=== PATIENT | female | born 1990 | race Caucasian/White ===

== ENCOUNTER → 2017-05-19 | Outpatient (CLI) | payer BC, MEDICAID ==
[~2017-05-19] MED LIST: AZIT-21 PO; PRED20TA PO
--- NOTE | 2017-05-19 14:53 | Diagnostic Imaging Report ---
First trimester OB ultrasound. INDICATION: Dating. FINDINGS: There is a normal-appearing single intrauterine . An embryo is seen with cardiac activity at 136 beats per minute. The crown-rump length is at 8 weeks and 6 days. JAYSON is 12/23/17. The ovaries are not seen, likely obscured by bowel gas. IMPRESSION: Live single intrauterine . Dictated by: Dictated on workstation # [id number]
== END ==
LOC: RAD 13:53
PROVIDERS: ATTEND Obstetrics & Gynecology
DX: Z36 Encounter for antenatal screening of mother (principal); Z3A.08 8 weeks gestation of pregnancy
CPT/HCPCS: 76801

== ENCOUNTER 2017-07-11 20:07 | Emergency (ER) | payer MEDICAID ==
[~2017-07-11] VITALS: Ht 162.6 cm; Wt 96.6 kg
--- NOTE | 2017-07-11 20:38 | ED GU-Female ---
General Chief Complaint: -Female Stated Complaint: 16 WKS PREG/SPOTTING Nursing Triage Note: pt reports she is aprox 16 weeks preg. and started having spotting today. 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 Nursing Sepsis Screen: No Definite Risk Source: patient Exam Limitations: no limitations History of Present Illness Time seen by provider: 20:36 Initial Comments To ER with concerns of a miscarriage. She is about 16 weeks AB 7. She is following with Dr. Rasheed. Last menstrual period began in the first part of February. She denies fevers or chills. She reports some lower suprapubic abdominal cramping that began earlier today and then after urinating she had a small amount of blood on the toilet paper when wiping. She has not passed any clots or tissue. Severity/Quality: moderate Location: suprapubic Radiation: none Activities at Onset: none Prior Genitourinary Problems: none Associated Symptoms: No dysuria, No fever/chills Allergies and Home Medications Allergies Coded Allergies: No Known Drug Allergies (Unverified , 03/24/15) Home Medications Azithromycin 250 Mg Tab, 1 TAB PO DAILY for 4 Days, Ref 0 Prescribed by: DOMENICO HOYOS on 03/24/151814 Prednisone 20 Mg Tablet, 60 MG PO DAILY for 4 Days, Ref 0 Prescribed by: DOMENICO HOYOS on 03/24/151814 Constitutional: see HPI, No chills, No fever EENTM: see HPI Respiratory: no symptoms reported Genitourinary: no symptoms reported Expected Date of Delivery: Dec 23, 2017 Musculoskeletal: no symptoms reported Skin: no symptoms reported Psychiatric/Neurological: No Symptoms Reported Past Scuoguy-Qrswdt-Xfskvp Hx Patient Social History Alcohol Use: Denies Use Recreational Drug Use: No Smoking Status: Never a Smoker Recent Foreign Travel: No Contact w/Someone Who Travel: No Recent Infectious Disease Expo: No Physical Abuse: No Sexual Abuse: No Mistreated: No Fear: No Seasonal Allergies Seasonal Allergies: No Surgeries History of Surgeries: Yes Surgeries: Appendectomy Respiratory History of Respiratory Disorde: No Cardiovascular History of Cardiac Disorders: No Neurological History of Neurological Disord: No 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 System : Yes Expected Date of Delivery: Dec 23, 2017 Last Menstrual Period: March 09, 2017 Hx : 7 Hx Para: 0 Hx Total # of Abortions (Spona: 6 Hx 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 Disorders: No Genitourinary History of Genitourinary Disor: No Gastrointestinal History of Gastrointestinal Di: No Musculoskeletal History of Musculoskeletal Dis: No Endocrine History of Endocrine Disorders: No HEENT History of HEENT Disorders: No Cancer History of Cancer: No Psychosocial History of Psychiatric Problem: No Suicide Risk Score: 0 Integumentary History of Skin or Integumenta: No Blood Transfusions History of Blood Disorders: No Physical Exam Vital Signs Vital Sign - Last 12Hours 07/11/17 20:16 Temp 97.0 Pulse 93 Resp 18 B/P (MAP) 142/89 Pulse Ox 97 Capillary Refill : Less Than 3 Seconds General Appearance: WD/WN, no apparent distress, other (very anxious appearing and tearful) HEENT: PERRL/EOMI, normal ENT inspection Neck: non-tender, full range of motion Respiratory: normal breath sounds, no respiratory distress, no accessory muscle use Gastrointestinal: normal bowel sounds, non tender, soft Extremities: normal range of motion, non-tender Neurologic/Psychiatric: alert, normal mood/affect, oriented x 3 Skin: normal color, warm/dry Progress/Results/Core Measures Results/Orders Lab Results Laboratory Tests Test 07/11/17 20:54 07/11/17 21:25 Range/Units Urine Color YELLOW Urine Clarity CLEAR Urine pH 7 5-9 Urine Specific Barclay 1.015 L 1.016-1.022 Urine Protein NEGATIVE NEGATIVE Urine Glucose (UA) NEGATIVE NEGATIVE Urine Ketones NEGATIVE NEGATIVE Urine Nitrite NEGATIVE NEGATIVE Urine Bilirubin NEGATIVE NEGATIVE Urine Urobilinogen NORMAL NORMAL MG/DL Urine Leukocyte Esterase NEGATIVE NEGATIVE Urine RBC (Auto) 4+ H NEGATIVE Urine RBC 2-5 H /HPF Urine WBC 0-2 /HPF Urine Squamous Epithelial Cells 5-10 /HPF Urine Crystals NONE /LPF Urine Bacteria NONE /HPF Urine Casts NONE /LPF Urine Mucus NEGATIVE /LPF Urine Culture Indicated NO White Blood Count 9.3 4.3-11.0 10^3/uL Red Blood Count 4.30 L 4.35-5.85 10^6/uL Hemoglobin 12.0 11.5-16.0 G/DL Hematocrit 35 35-52 % Mean Corpuscular Volume 82 80-99 FL Mean Corpuscular Hemoglobin 28 25-34 PG Mean Corpuscular Hemoglobin Concent 34 32-36 G/DL Red Cell Distribution Width 14.3 10.0-14.5 % Platelet Count 198 130-400 10^3/uL Mean Platelet Volume 11.3 H 7.4-10.4 FL Neutrophils (%) (Auto) 65 42-75 % Lymphocytes (%) (Auto) 27 12-44 % Monocytes (%) (Auto) 6 0-12 % Eosinophils (%) (Auto) 1 0-10 % Basophils (%) (Auto) 0 0-10 % Neutrophils # (Auto) 6.1 1.8-7.8 X 10^3 Lymphocytes # (Auto) 2.5 1.0-4.0 X 10^3 Monocytes # (Auto) 0.6 0.0-1.0 X 10^3 Eosinophils # (Auto) 0.1 0.0-0.3 10^3/uL Basophils # (Auto) 0.0 0.0-0.1 10^3/uL My Orders Orders - LIDA FAIR APRN Cbc With Automated Diff (07/11/17 20:31) Hcg,Quantitative (07/11/17 20:31) Abo Rh Type (07/11/17 20:31) Ua Culture If Indicated (07/11/17 20:31) Us Limited [id number] (07/11/17 20:31) Vital Signs/I&O Vital Sign - Last 12Hours 07/11/17 20:16 Temp 97.0 Pulse 93 Resp 18 B/P (MAP) 142/89 Pulse Ox 97 Blood Pressure Mean: 106 Diagnostic Imaging Diagonstic Imaging: CT Comments NAME: HÉCTOR KAUR [facility] REC#: [id number] PT STATUS: REG ER : 1990 PHYSICIAN: LIDA FAIR APRN ADMIT DATE: 07/11/17/ER Draft Date of Exam:07/11/17 US LIMITED [id number] INDICATION: . Vaginal bleeding. COMPARISON: 05/19/2017. FINDINGS: Limited sonogram was performed to assess viability. The heart rate is documented at 144 beats per minute. A formal anatomic survey was not performed. Cervix is closed and measures 4 cm in length. Placenta is anterior. Position is variable. CLINICAL DATES: 16 weeks and 3 days. JAYSON is 03/22/2018. IMPRESSION: Live intrauterine , with heart rate documented at 144 beats per minute. Dictated on workstation # [id number] Dict: 07/11/172120 Trans: 07/11/172125 [id number] Interpreted by: JASIEL GOMEZ MD Electronically signed by: Departure Impression Impression: Primary Impression: Intrauterine Disposition: 01 HOME, SELF-CARE Condition: Stable Departure-Patient Inst. Decision time for Depature: 21:46 Referrals: WILIAN RASHEED DO (PCP/Family) Primary Care Physician Patient Instructions: NO INSTRUCTIONS GIVEN Add. Discharge Instructions: 1. Return to ER for any concerns 2. See Dr Rasheed for follow up as scheduled. All discharge instructions reviewed with patient and/or family. Voiced understanding. Copy Copies To 1: WILIAN RASHEED PETER J APRN Jul 11, 2017 20:38
[2017-07-11 21:04] LABS: BILIRUBIN,URINE NEGATIVE (NEGATIVE); KETONES,URINE NEGATIVE (NEGATIVE); LEUKOCYTE ESTERASE ,URINE NEGATIVE (NEGATIVE); NITRITE,URINE NEGATIVE (NEGATIVE); PH,URINE 7 (5-9); PROTEIN,URINE NEGATIVE (NEGATIVE); UROBILINOGEN,URINE NORMAL (NORMAL)
[2017-07-11 21:13] LABS: WBC,URINE 0-2 /HPF
--- NOTE | 2017-07-11 21:26 | Diagnostic Imaging Report ---
INDICATION: . Vaginal bleeding. COMPARISON: 05/19/2017. FINDINGS: Limited sonogram was performed to assess viability. The heart rate is documented at 144 beats per minute. A formal anatomic survey was not performed. Cervix is closed and measures 4 cm in length. Placenta is anterior. Position is variable. CLINICAL DATES: 16 weeks and 3 days. JAYSON is 03/22/2018. IMPRESSION: Live intrauterine , with heart rate documented at 144 beats per minute. Dictated by: Dictated on workstation # [id number]
[2017-07-11 21:35] LABS: BASOPHILS % (AUTO) 0 % (0-10); EOSINOPHILS # (AUTO) 0.1 10^3/uL (0.0-0.3); EOSINOPHILS % (AUTO) 1 % (0-10); LYMPHOCYTES # (AUTO) 2.5 X 10^3 (1.0-4.0); LYMPHOCYTES % (AUTO) 27 % (12-44); MEAN CORPUSCULAR HEMOGLOBIN 28 PG (25-34); MEAN CORPUSCULAR HGB CONC 34 G/DL (32-36); MEAN CORPUSCULAR VOLUME 82 FL (80-99); MEAN PLATELET VOLUME 11.3 FL (7.4-10.4); MONOCYTES # (AUTO) 0.6 X 10^3 (0.0-1.0); MONOCYTES % (AUTO) 6 % (0-12); NEUTROPHILS # (AUTO) 6.1 X 10^3 (1.8-7.8); NEUTROPHILS % (AUTO) 65 % (42-75); PLATELET COUNT 198 10^3/uL (130-400); RED CELL DISTRIBUTION WIDTH 14.3 % (10.0-14.5); WHITE BLOOD COUNT 9.3 10^3/uL (4.3-11.0)
[2017-07-11 22:05] VITALS: BP 123/74
== END 2017-07-11 22:05 | disposition home or self-care (01) ==
LOC: EDUNIT# 20:07 → ER 20:08
DX: O26.852 Spotting complicating pregnancy, second trimester (principal); Z90.49 Acquired absence of other specified parts of digestive tract; Z3A.16 16 weeks gestation of pregnancy
CPT/HCPCS: 36415; 76815; 81000; 84702; 85025; 86900; 86901; 99282

== ENCOUNTER → 2017-08-19 | Outpatient (CLI) | payer MEDICAID ==
--- NOTE | 2017-08-19 16:34 | Diagnostic Imaging Report ---
INDICATION: survey. TECHNIQUE: Multiple real-time grayscale images were obtained over the gravid uterus. COMPARISON: 07/11/2017 FINDINGS: heart rate is 167 beats per minutes. The cervix is 6.5 cm in length and is closed. The placenta is anterior and appears to extend to the vicinity of the internal os. This was not seen on the prior exam and could be artifactual related to bladder distention and impression upon the anterior wall of the lower uterine segment. There is no ventriculomegaly. The posterior fossa appears unremarkable. The bladder, two umbilical arteries, the spine, four-chamber view, the stomach, and the kidneys appear unremarkable. The cord insertion is not well seen due to position. From Biometrical measurements are as follows: Biparietal 5.4 cm, age 22 weeks 4 days. Head circumference 19.8 cm, age 22 weeks 0 days. Abdominal circumference 17.4 cm, age 22 weeks 3 days. Femur length 3.9 cm, age 22 weeks 3 days. Sonographic estimate age: 22 weeks 3 days. Sonographic estimated date of delivery: 12/20/17. Estimated Weight: 497 gm (+/- 73 gm). LMP percentile: 92%. heart rate: 167 beats per minute. number: 1 of 1. IMPRESSION: 1. The cord insertion is not well seen due to position. 2. The placenta is anterior and appears to extend to the lower uterine segment. This could be positional since the placenta was more than 3 cm away from the internal os on the previous exam. 3. Short-term followup to reevaluate the placenta position and the cord insertion is recommended. Dictated by: Dictated on workstation # [id number]
== END ==
LOC: RAD 10:02
PROVIDERS: ATTEND Obstetrics & Gynecology
DX: O26.20 Pregnancy care for patient with recurrent pregnancy loss, unspecified trimester (principal); O46.92 Antepartum hemorrhage, unspecified, second trimester; Z3A.22 22 weeks gestation of pregnancy
CPT/HCPCS: 76805

== ENCOUNTER → 2017-09-21 | Outpatient (CLI) | payer MEDICAID ==
--- NOTE | 2017-09-21 19:19 | Diagnostic Imaging Report ---
INDICATION: Followup cord insertion and placenta. TECHNIQUE: Multiple real-time grayscale images were obtained over the gravid uterus. COMPARISON: 08/19/2017. FINDINGS: heart rate is 146 beats per minute. The placenta is anterior with no placenta previa. The cervix appears to be closed and is roughly 4.5 cm in length. The cord insertion is still not seen due to position. IMPRESSION: No placenta previa. The cord insertion is still not well seen due to position. Dictated by: Dictated on workstation # [id number]
== END ==
LOC: RAD 09:56
PROVIDERS: ATTEND Obstetrics & Gynecology
DX: O43.192 Other malformation of placenta, second trimester (principal); O46.92 Antepartum hemorrhage, unspecified, second trimester; Z3A.00 Weeks of gestation of pregnancy not specified
CPT/HCPCS: 76816

== ENCOUNTER 2017-11-28 10:38 | Emergency (ER) | payer MEDICAID ==
[~2017-11-28] VITALS: Ht 160 cm; Wt 77.1 kg
--- OUTSIDE RECORDS SUMMARY | 2017-11-28 10:44 | XMS REPORT | Continuity of Care Document ---
Author Author [facility] Organization [facility] Address Unknown Phone Unavailable Allergies Active Description Code Type Severity Reaction Onset Reported/Identified Relationship to Patient Clinical Status Yes No Known Drug Allergies [id number] Drug Allergy Unknown N/A 03/24/2015 Medications There is no data. Problems Date Dx Coded Attending Type Code Diagnosis Diagnosed By 03/24/2015 DOMENICO HOYOS DO Ot 684 IMPETIGO 03/24/2015 DOMENICO HOYOS DO Ot 692.9 DERMATITIS NOS 03/24/2015 DOMENICO HOYOS DO Ot 782.1 NONSPECIF SKIN ERUPT NEC 05/25/2017 WILIAN RASHEED DO Ot Z36 ENCOUNTER FOR SCREENING OF MOT 05/25/2017 WILIAN RASHEED DO Ot Z3A.08 8 WEEKS GESTATION OF 05/25/2017 WILIAN RASHEED DO Ot Z36 ENCOUNTER FOR SCREENING OF MOT 05/25/2017 WILIAN RASHEED DO Ot Z3A.08 8 WEEKS GESTATION OF 06/01/2017 WILIAN RASHEED DO Ot Z36 ENCOUNTER FOR SCREENING OF MOT 06/01/2017 WILIAN RASHEED DO Ot Z3A.08 8 WEEKS GESTATION OF 07/11/2017 LIDA FAIR APRN Ot N92.0 EXCESSIVE AND FREQUENT MENSTRUATION WITH 07/11/2017 LIDA FAIR APRN Ot O26.852 SPOTTING COMPLICATING , SECOND 07/11/2017 LIDA FAIR APRN Ot Z3A.16 16 WEEKS GESTATION OF 07/11/2017 LIDA FAIR APRN Ot Z90.49 ACQUIRED ABSENCE OF OTHER SPECIFIED PART 07/13/2017 LIDA FAIR APRN Ot N92.0 EXCESSIVE AND FREQUENT MENSTRUATION WITH 07/13/2017 LIDA FAIR APRN Ot O26.852 SPOTTING COMPLICATING , SECOND 07/13/2017 LIDA FAIR APRN Ot Z3A.16 16 WEEKS GESTATION OF 07/13/2017 LIDA FAIR APRN Ot Z90.49 ACQUIRED ABSENCE OF OTHER SPECIFIED PART 08/25/2017 RASHEED DO, WILIAN C Ot O26.20 PREG CARE FOR PATIENT W RECURRENT PREG L 08/25/2017 RASHEED DO, WILIAN C Ot O46.92 ANTEPARTUM HEMORRHAGE, UNSPECIFIED, SECO 08/25/2017 RASHEED DO, WILIAN C Ot Z3A.22 22 WEEKS GESTATION OF 08/30/2017 RASHEED DO, WILIAN C Ot O26.20 PREG CARE FOR PATIENT W RECURRENT PREG L 08/30/2017 RASHEED DO, WILIAN C Ot O46.92 ANTEPARTUM HEMORRHAGE, UNSPECIFIED, SECO 08/30/2017 RASHEED DO, WILIAN C Ot Z3A.22 22 WEEKS GESTATION OF 09/27/2017 RASHEED DO, WILIAN C Ot 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 Results Test Result Range Complete urinalysis with reflex to culture - 07/11/17 20:54 Urine color determination YELLOW NRG Urine clarity determination CLEAR NRG Urine pH measurement by test strip 7 5-9 Specific gravity of urine by test strip 1.015 1.016- 1.022 Urine protein assay by test strip, semi-quantitative NEGATIVE NEGATIVE Urine glucose detection by automated test strip NEGATIVE NEGATIVE Erythrocytes detection in urine sediment by light microscopy 4+ NEGATIVE Urine ketones detection by automated test strip NEGATIVE NEGATIVE Urine nitrite detection by test strip NEGATIVE NEGATIVE Urine total bilirubin detection by test strip NEGATIVE NEGATIVE Urine urobilinogen measurement by automated test strip (mass/volume) NORMAL NORMAL Urine leukocyte esterase detection by dipstick NEGATIVE NEGATIVE Automated urine sediment erythrocyte count by microscopy (number/high power field) [HPF] NRG Automated urine sediment leukocyte count by microscopy (number/high power field ) [HPF] NRG Bacteria detection in urine sediment by light microscopy NONE NRG Squamous epithelial cells detection in urine sediment by light microscopy 5-10 NRG Crystals detection in urine sediment by light microscopy NONE NRG Casts detection in urine sediment by light microscopy NONE NRG Mucus detection in urine sediment by light microscopy NEGATIVE NRG Complete urinalysis with reflex to culture NO NRG Complete blood count (CBC) with automated white blood cell (WBC) differential - 07/11/17 21:25 Blood leukocytes automated count (number/volume) 9.3 10*3/uL 4.3-11.0 Blood erythrocytes automated count (number/volume) 4.30 10*6/uL 4.35-5.85 Venous blood hemoglobin measurement (mass/volume) 12.0 g/dL 11.5-16.0 Blood hematocrit (volume fraction) 35 % 35-52 Automated erythrocyte mean corpuscular volume 82 [foz_us] 80-99 Automated erythrocyte mean corpuscular hemoglobin (mass per erythrocyte) 28 pg 25-34 Automated erythrocyte mean corpuscular hemoglobin concentration measurement ( mass/volume) 34 g/dL 32-36 Automated erythrocyte distribution width ratio 14.3 % 10.0-14.5 Automated blood platelet count (count/volume) 198 10*3/uL 130-400 Automated blood platelet mean volume measurement 11.3 [foz_us] 7.4-10.4 Automated blood neutrophils/100 leukocytes 65 % 42-75 Automated blood lymphocytes/100 leukocytes 27 % 12-44 Blood monocytes/100 leukocytes 6 % 0-12 Automated blood eosinophils/100 leukocytes 1 % 0-10 Automated blood basophils/100 leukocytes 0 % 0-10 Blood neutrophils automated count (number/volume) 6.1 10*3 1.8-7.8 Blood lymphocytes automated count (number/volume) 2.5 10*3 1.0-4.0 Blood monocytes automated count (number/volume) 0.6 10*3 0.0-1.0 Automated eosinophil count 0.1 10*3/uL 0.0-0.3 Automated blood basophil count (count/volume) 0.0 10*3/uL 0.0-0.1 ABO+Rh group - 07/11/17 21:25 ABO+Rh group AP NRG Serum or plasma choriogonadotropin measurement (units/volume) - 07/11/17 21:25 Serum or plasma choriogonadotropin measurement (units/volume) 14219 m[iU]/mL <5 Encounters ACCT No. Visit Date/Time Discharge Status Pt. Type Provider Facility Loc./Unit Complaint [id number] 09/21/2017 09:56:00 09/21/2017 23:59:59 CLS Outpatient WILIAN RASHEED DO [facility] RAD SURVEY [id number] 08/19/2017 10:02:00 08/19/2017 23:59:59 CLS Outpatient WILIAN RASHEED DO [facility] RAD SURVEY, [id number] 07/11/2017 20:08:00 07/11/2017 22:05:00 DIS Emergency LIDA FAIR APRN [facility] ER 16 WKS PREG/SPOTTING [id number] 05/19/2017 13:53:00 05/19/2017 23:59:59 CLS Outpatient WILIAN RASHEED DO [facility] RAD Z34.01 CARE [id number] 03/24/2015 17:25:00 03/24/2015 18:52:00 DIS Emergency DOMENICO HOYOS DO [facility] ER RASH
--- NOTE | 2017-11-28 11:14 | ED Upper Extremity ---
General Chief Complaint: Upper Extremity Stated Complaint: RING STUCK ON FINGER Source: patient Exam Limitations: no limitations History of Present Illness Date Seen by Provider: Nov 28, 2017 Time Seen by Provider: 11:12 Initial Comments To ER with inability to get the ring off of her right ring finger. She is 36 weeks and awakened with hand swelling this morning. Onset: just prior to arrival Severity: moderate Pain/Injury Location: right 4th finger Allergies and Home Medications Allergies Coded Allergies: No Known Drug Allergies (Unverified , 03/24/15) Home Medications Azithromycin 250 Mg Tab, 1 TAB PO DAILY for 4 Days, Ref 0 Prescribed by: DOMENICO HOYOS on 03/24/151814 Prednisone 20 Mg Tablet, 60 MG PO DAILY for 4 Days, Ref 0 Prescribed by: DOMENICO HOYOS on 03/24/151814 Constitutional: see HPI EENTM: see HPI Respiratory: no symptoms reported Cardiovascular: no symptoms reported Genitourinary: no symptoms reported Musculoskeletal: no symptoms reported Skin: no symptoms reported Psychiatric/Neurological: No Symptoms Reported Past Ufpzbjg-Dmyaru-Xdmrqy Hx Patient Social History Recent Foreign Travel: No Contact w/Someone Who Travel: No Seasonal Allergies Seasonal Allergies: No Surgeries History of Surgeries: Yes Surgeries: Appendectomy Respiratory History of Respiratory Disorde: No Cardiovascular History of Cardiac Disorders: No Neurological History of Neurological Disord: No 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 System Hx 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 Disorders: No Genitourinary History of Genitourinary Disor: No Gastrointestinal History of Gastrointestinal Di: No Musculoskeletal History of Musculoskeletal Dis: No Endocrine History of Endocrine Disorders: No HEENT History of HEENT Disorders: No Cancer History of Cancer: No Psychosocial History of Psychiatric Problem: No Integumentary History of Skin or Integumenta: No Blood Transfusions History of Blood Disorders: No Physical Exam Vital Signs Capillary Refill : General Appearance: WD/WN, no apparent distress HEENT: PERRL/EOMI, normal ENT inspection Neck: non-tender, full range of motion Respiratory: no respiratory distress, no accessory muscle use Gastrointestinal: normal bowel sounds, non tender Shoulder: normal inspection, non-tender Elbow/Forearm: normal inspection, non-tender, Right Wrist: Yes normal inspection, Yes non-tender Hand: Right, swelling (mild swelling to each of the fingers, the reading is on the ring finger and unable to be removed. Capillary refill is less than 3 seconds) Neurologic/Psychiatric: alert, normal mood/affect, oriented x 3 Skin: normal color, warm/dry Departure Communication (Admissions) Progress Notes Ring was easily removed with a ring cutter Impression Impression: Primary Impression: encounter for removal of ring Disposition: HOME, SELF-CARE Condition: Stable Departure-Patient Inst. Decision time for Depature: 11:14 Referrals: WILIAN RASHEED DO (PCP/Family) Primary Care Physician Patient Instructions: NO INSTRUCTIONS GIVEN Add. Discharge Instructions: All discharge instructions reviewed with patient and/or family. Voiced understanding. LIDA FAIR APRN Nov 28, 2017 11:14
[2017-11-28 11:19] VITALS: BP 116/70
== END 2017-11-28 11:19 | disposition home or self-care (01) ==
LOC: EDUNIT# 10:38 → ER 10:40
DX: O99.89 Other specified diseases and conditions complicating pregnancy, childbirth and the puerperium (principal); S60.454A Superficial foreign body of right ring finger, initial encounter; Z3A.36 36 weeks gestation of pregnancy; Z79.52 Long term (current) use of systemic steroids; Z90.49 Acquired absence of other specified parts of digestive tract; X58.XXXA Exposure to other specified factors, initial encounter
CPT/HCPCS: 99282

== ENCOUNTER 2017-12-26 20:00 | Inpatient (IN) | payer MEDICAID ==
[~2017-12-26] VITALS: Ht 162.6 cm; Wt 110.7 kg
[2017-12-26] MEDS ORDERED: LACTATED RINGERS 1,000 ML IV ONE (20:05)
--- OUTSIDE RECORDS SUMMARY | 2017-12-26 20:08 | XMS REPORT | Continuity of Care Document ---
Author Author [facility] Organization [facility] Address Unknown Phone Unavailable Allergies Active Description Code Type Severity Reaction Onset Reported/Identified Relationship to Patient Clinical Status Yes No Known Drug Allergies [id number] Drug Allergy Unknown N/A 03/24/2015 Medications There [...] 22 WEEKS GESTATION OF 09/27/2017 RASHEED DO, WIILAN C Ot O43.192 OTHER MALFORMATION OF PLACENTA, [...] Z3A.00 WEEKS OF GESTATION OF NOT SPEC 11/28/2017 LIDA FAIR APRN Ot O99.89 OTH DISEASES AND CONDITIONS COMPL PREG/C 11/28/2017 LIDA FAIR APRN Ot S60.454A SUPERFICIAL FOREIGN BODY OF RIGHT RING F 11/28/2017 LIDA FAIR APRN Ot X58.XXXA EXPOSURE TO OTHER SPECIFIED FACTORS, INI 11/28/2017 LIDA FAIR APRN Ot Z3A.36 36 WEEKS GESTATION OF 11/28/2017 LIDA FAIR APRN Ot Z79.52 SNF (CURRENT) USE OF SYSTEMIC STER 11/28/2017 LIDA FAIR APRN Ot Z90.49 ACQUIRED ABSENCE OF OTHER SPECIFIED PART 11/30/2017 LIDA FAIR APRN Ot O99.89 OTH DISEASES AND CONDITIONS COMPL PREG/C 11/30/2017 LIDA FAIR APRN Ot S60.454A SUPERFICIAL FOREIGN BODY OF RIGHT RING F 11/30/2017 LIDA FAIR CORRECTIONAL MAINTENANCE TECHNICIAN Ot X58.XXXA EXPOSURE TO OTHER SPECIFIED FACTORS, INI 11/30/2017 LIDA FAIR CORRECTIONAL MAINTENANCE TECHNICIAN Ot Z3A.36 36 WEEKS GESTATION OF 11/30/2017 LIDA FAIR CORRECTIONAL MAINTENANCE TECHNICIAN Ot Z79.52 SNF (CURRENT) USE OF SYSTEMIC STER 11/30/2017 LIDA FAIR APRN Ot Z90.49 ACQUIRED ABSENCE OF OTHER SPECIFIED PART Procedures There is no data. Results Test [...] 21:25 Serum or plasma choriogonadotropin measurement (units/volume) 70154 m[iU]/mL <5 Encounters ACCT No. Visit Date/Time Discharge Status Pt. Type Provider Facility Loc./Unit Complaint [id number] 11/28/2017 10:40:00 11/28/2017 11:19:00 DIS Emergency LIDA FAIR APRN [facility] ER RING STUCK ON FINGER [id number] 09/21/2017 09:56:00 09/21/2017 23:59:59 CLS Outpatient WILIAN RASHEED DO [facility] RAD SURVEY [id number] 08/19/2017 10:02:00 08/19/2017 23:59:59 CLS Outpatient WILIAN RASHEED DO [facility] RAD SURVEY, [id number] 07/11/2017 20:08:00 07/11/2017 22:05:00 DIS Emergency LIDA FAIR APRN [facility] ER 16 WKS PREG/SPOTTING [id number] 05/19/2017 13:53:00 05/19/2017 23:59:59 [facility] Outpatient WILIAN RASHEED DO [facility] RAD Z34.01 CARE [id number] 03/24/2015 17:25:00 03/24/2015 18:52:00 DIS Emergency DOMENICO HOYOS DO [facility] ER RASH
[2017-12-26 20:22] VITALS: BP 115/76
[2017-12-26] MEDS ORDERED: PREN-142 PO (20:35)
[2017-12-26] MEDS ORDERED: LACTATED RINGERS 1,000 ML IV SCH (20:42)
[2017-12-26] MEDS ORDERED: TERBUTALINE INJ 1 MG/ML (BRETHINE) AMP SC PRN (20:45)
[2017-12-26] MEDS ORDERED: MINERAL OIL CONCENTRATE 99.9% 15 ML UDC TOP PRN (20:45)
[2017-12-26] MEDS ORDERED: MISOPROSTOL 100 MCG (CYTOTEC) TAB PO ONE (20:45)
[2017-12-26] MEDS ORDERED: ZOLPIDEM 5 MG (AMBIEN) TAB PO SCH (21:00)
[2017-12-26] MEDS: D5 LR IV SOLUTION 1,000 ML IV SCH (21:22)
[2017-12-26 21:28] LABS: BASOPHILS % (AUTO) 0 % (0-10); EOSINOPHILS # (AUTO) 0.1 10^3/uL (0.0-0.3); EOSINOPHILS % (AUTO) 1 % (0-10); HEMATOCRIT 35 % (35-52); LYMPHOCYTES # (AUTO) 2.1 X 10^3 (1.0-4.0); LYMPHOCYTES % (AUTO) 20 % (12-44); MEAN CORPUSCULAR HEMOGLOBIN 29 PG (25-34); MEAN CORPUSCULAR HGB CONC 34 G/DL (32-36); MEAN CORPUSCULAR VOLUME 84 FL (80-99); MEAN PLATELET VOLUME 11.8 FL (7.4-10.4); MONOCYTES # (AUTO) 0.7 X 10^3 (0.0-1.0); MONOCYTES % (AUTO) 6 % (0-12); NEUTROPHILS # (AUTO) 7.5 X 10^3 (1.8-7.8); NEUTROPHILS % (AUTO) 72 % (42-75); PLATELET COUNT 177 10^3/uL (130-400); RED BLOOD COUNT 4.21 10^6/uL (4.35-5.85); RED CELL DISTRIBUTION WIDTH 14.9 % (10.0-14.5); WHITE BLOOD COUNT 10.4 10^3/uL (4.3-11.0)
[2017-12-26 21:40] LABS: BILIRUBIN,URINE NEGATIVE (NEGATIVE); CLARITY,URINE CLEAR; COLOR,URINE YELLOW; GLUCOSE, URINE (UA) NEGATIVE (NEGATIVE); KETONES,URINE NEGATIVE (NEGATIVE); LEUKOCYTE ESTERASE ,URINE 1+ (NEGATIVE); NITRITE,URINE NEGATIVE (NEGATIVE); PH,URINE 6 (5-9); PROTEIN,URINE NEGATIVE (NEGATIVE); UROBILINOGEN,URINE NORMAL (NORMAL)
[2017-12-26 21:47] LABS: BACTERIA,URINE TRACE /HPF
[2017-12-26] MEDS ORDERED: CATHETER FLUSH 10 ML SYR IV SCH (22:00)
[2017-12-26 22:16] VITALS: BP 98/55
[2017-12-27] VITALS (50 sets, daily range): BP systolic 90–149; BP diastolic 46–80
[2017-12-27] MEDS: MISOPROSTOL 100 MCG (CYTOTEC) TAB PO SCH ×2 (01:01→05:06)
[2017-12-27] MEDS ORDERED: morphine INJ 10 MG/ML 1ML (SYR OR VIAL) IVP ONE (05:15)
[2017-12-27] MEDS: D5 LR IV SOLUTION 1,000 ML IV SCH ×2 (05:18→13:20)
[2017-12-27] MEDS ORDERED: INFLUENZA TRIvalent 2017-2018 0.5 ML/45 MCG SYR IM ONE (07:15)
[2017-12-27] MEDS ORDERED: BUTORPHANOL INJ 2 MG/ML (STADOL) VIAL ONE (07:48)
--- NOTE | 2017-12-27 07:49 | Progress Note-Standard ---
Standard Progress Note Progress Notes/Assess & Plan Date Seen by Provider: Dec 27, 2017 Time Seen by Provider: 07:48 Progress/Assessment & Plan s/p misoprostol x 3. Increased contractions and pain. Contractions every 2-3 minutes. Increased bloody show sve /-1 AROM, clear, FSE placed well being reassuring Anticipate WILIAN RASHEED DO Dec 27, 2017 07:49
[2017-12-27] MEDS ORDERED: BUTORPHANOL INJ 2 MG/ML (STADOL) VIAL IV PRN (08:00)
[2017-12-27] MEDS ORDERED: SUFENTA 0.6MCG/ML BUPIVA 0.125 100 ML ONE ×2 (08:38→09:03)
[2017-12-27] MEDS ORDERED: BUPIVACAINE 0.25% 30 ML (SENSORCAINE) VIAL ONE (09:03)
[2017-12-27] MEDS ORDERED: fentaNYL INJECTION 100 MCG/2 ML AMP ONE (09:03)
[2017-12-27] MEDS ORDERED: LACTATED RINGERS 1,000 ML IV SCH (12:26)
[2017-12-27] MEDS ORDERED: diphenhydrAMINE 50 MG/ML INJ (BENADRYL) IV PRN (12:30)
[2017-12-27] MEDS ORDERED: METOCLOPRAMIDE INJ 10 MG/2 ML (REGLAN) IV PRN (12:30)
[2017-12-27] MEDS ORDERED: ONDANSETRON 4 MG/2 ML (SDV) Z0FRAN IV PRN (12:30)
[2017-12-27] MEDS ORDERED: NALOXONE 0.4 MG/ML 1 ML (NARCAN) VIAL IV PRN ×2 (12:30)
[2017-12-27] MEDS ORDERED: EPIDURAL (SUFENTA 0.6MCG/ML BUPIVA 0.125%) 100 ML BAG EPI PRN (12:30)
[2017-12-27] MEDS ORDERED: LIDOCAINE/EPI 2% 1:200,00 (XYLOCAINE) 10 ML VIAL ONE ×2 (14:41→17:27)
[2017-12-27] MEDS ORDERED: OXYTOCIN/NORMAL SALINE 500 ML IV ONE (16:02)
[2017-12-27] MEDS ORDERED: OXYTOCIN/NORMAL SALINE 500 ML IV SCH (16:36)
[2017-12-27] MEDS ORDERED: MISOPROSTOL 200 MCG (CYTOTEC) TABLET ONE (17:28)
[2017-12-27] MEDS ORDERED: MISOPROSTOL 200 MCG (CYTOTEC) TABLET PR ONE ×2 (17:45)
[2017-12-27] MEDS ORDERED: HYDROcodone/APAP 5 MG/325 MG (LORTAB) TAB PO PRN (17:45)
[2017-12-27] MEDS ORDERED: DIBUCAINE (NUPERCAINAL) 1% OINT 30 GM TOP PRN (17:45)
[2017-12-27] MEDS ORDERED: BENZOCAINE/MENTHOL (DERMOPLAST) 56 ML CAN TP PRN (17:45)
[2017-12-27] MEDS ORDERED: MEASLES,MUMPS,RUBELLA 1 EA INJ SQ ONE (17:45)
[2017-12-27] MEDS ORDERED: WITCH HAZEL(TUCKS) 40 EA JAR TOP PRN (17:45)
[2017-12-27] MEDS ORDERED: TETANUS,DIPTH,PERTUSS P/F (BOOSTRIX) 0.5 ML VIAL IM ONE (17:45)
--- NOTE | 2017-12-27 17:54 | OB Labor & Delivery Record ---
Vag Delivery Note Vag Delivery Note Date of Delivery: 12/27/17 Preoperative Diagnosis: Carlene Reyes is a 27 /Para 7/0 , Gestational Age 40 2/7 weeks for induction due to post dates Postoperative Diagnosis: Same Surgeon: WILIAN RASHEED Anesthesia: epidural Delivery Type: vaginal Findings: Viable male infant, apgars 9/9, weight 639oz Lacerations: 1st degree, bilateral anterior labial Intact placenta with 3 vessel cord. nuchal cord/body cord delivered through. No shoulder dystocia Cytotec 800 mcg placed for hemorrhage prophylaxis Estimated Blood Loss: 300 ml Complications: None Condition: Stable Description of Procedure: The patient is a 27 /Para 7/0 ,Gestational Age 40 2/7 weeks for induction due to post dates. She was admitted and informed consent was obtained. Her labor course was remarkable for misoprostol cervical ripening x 3 doses and then AROM. Oxytocin augmentation started at 9 cm due to inadequate contractions. She progressed to complete dilatation and began to push. She was then set up for delivery. She did have a prolonged deceleration x 7 minutes and the heart rate was allowed to recover before pushing again. The infant's head was delivered atraumatically in the JOSÉ position. The shoulders and remainder of the 's body were then delivered without difficulty. There was a nuchal/body cord that was delivered through. Upon delivery, the head was held below the level of the perineum and the mouth and nares were bulb suctioned. The cord was doubly clamped and cut and the was handed off to the pediatric staff. An intact placenta with 3-vessel cord delivered via Felix and there was found to be minimal bleeding.~ Vigorous fundal massage was performed and the fundus was found to be firm. IV oxytocin was given. However, the IV infiltrated. The IV was removed and AK misoprostol was given. Examination of the vagina and perineum revealed a first degree laceration repaired in the usual fashion with 3-0 vicryl suture The right anterior labial was repaired with interrupted 3-0 Vicryl Rapide. The left laceration was hemostatic and not repaired. Following the repair, sponge, instrument and needle counts were correct. Mom and baby were both in stable condition in the labor suite. Vitals - Labs Vital Signs - I&O Vital Signs Date Time Temp Pulse Resp B/P (MAP) Pulse Ox O2 Delivery O2 Flow Rate FiO2 12/27/17 16:15 90 100 Room Air 12/27/17 16:10 64 119/57 (77) 100 Room Air 12/27/17 16:00 83 99 Room Air 12/27/17 15:50 75 123/64 (83) 100 Room Air 12/27/17 15:45 71 100 Room Air 12/27/17 15:35 71 109/68 (82) 99 Room Air 12/27/17 15:30 86 100 Room Air 12/27/17 15:20 81 104/63 (77) 99 Room Air 12/27/17 15:15 66 99 Room Air 12/27/17 15:05 83 125/63 (83) 100 Room Air 12/27/17 15:00 66 99 Room Air 12/27/17 14:55 98.3 82 104/55 (71) 100 Room Air 12/27/17 14:45 76 98 Room Air 12/27/17 14:30 68 98 Room Air 12/27/17 14:20 69 103/56 (72) 98 Room Air 12/27/17 14:15 61 98 Room Air 12/27/17 14:05 75 99/68 (78) 100 Room Air 12/27/17 14:00 100 99 Room Air 12/27/17 13:50 82 103/73 (83) 99 Room Air 12/27/17 13:45 76 100 Room Air 12/27/17 13:35 92 105/68 (80) 99 Room Air 12/27/17 13:30 108 99 Room Air 12/27/17 13:20 82 90/53 (65) 99 Room Air 12/27/17 13:15 73 99 Room Air 12/27/17 13:05 67 100/56 (71) 99 Room Air 12/27/17 13:00 101 99 Room Air 12/27/17 12:50 60 102/58 (73) 98 Room Air 12/27/17 12:45 101 100 Room Air 12/27/17 12:35 63 100/56 (71) 99 Room Air 12/27/17 12:30 63 99 Room Air 12/27/17 12:20 97.3 73 18 107/62 (77) 99 Room Air 12/27/17 12:15 61 99 Room Air 12/27/17 12:05 77 106/64 (78) 99 Room Air 12/27/17 12:00 61 99 Room Air 12/27/17 11:50 61 99/58 (72) 99 Room Air 12/27/17 11:45 57 98 Room Air 12/27/17 11:35 64 111/54 (73) 100 Room Air 12/27/17 11:30 57 98 Room Air 12/27/17 11:20 53 92/46 (61) 97 Room Air 12/27/17 11:15 57 98 Room Air 12/27/17 11:05 53 93/46 (62) 98 Room Air 12/27/17 11:00 62 97 Room Air 12/27/17 10:50 70 111/56 (74) 98 Room Air 12/27/17 10:45 77 96 Room Air 12/27/17 10:35 79 109/54 (72) 97 Room Air 12/27/17 10:30 77 96 Room Air 12/27/17 10:20 80 115/57 (76) 94 Room Air 12/27/17 10:15 68 18 110/57 (74) 94 Room Air 12/27/17 10:08 66 115/59 (77) 94 Room Air 12/27/17 10:00 97.2 104 117/59 (78) 97 Room Air 12/27/17 09:57 99 109/65 (80) Room Air 12/27/17 09:54 94 117/66 (83) 95 Room Air 12/27/17 09:51 101 115/66 (82) 96 Room Air 12/27/17 09:48 79 111/61 (78) 94 Room Air 12/27/17 09:45 94 115/64 (81) 95 Room Air 12/27/17 09:39 96 96 Room Air 12/27/17 09:36 100 124/73 (90) Room Air 12/27/17 09:33 80 130/79 (96) 94 Room Air 12/27/17 09:30 80 127/73 (91) 98 Room Air 12/27/17 09:21 74 122/62 (82) 99 Room Air 12/27/17 09:18 56 149/59 (89) 99 Room Air 12/27/17 09:15 64 100 Room Air 12/27/17 09:10 55 129/80 (96) 99 Room Air 12/27/17 08:00 97.5 53 18 118/78 (91) Room Air 12/27/17 05:08 97.9 52 18 121/74 (90) Room Air 12/27/17 00:58 97.5 52 18 117/79 (92) Room Air 12/26/17 22:16 72 18 98/55 (69) Room Air 12/26/17 21:30 76 18 99 Room Air 12/26/17 20:22 97.7 102 18 115/76 (89) Room Air I & O 12/27/17 07:00 Intake Total 600 ml Balance 600 ml Labs Laboratory Tests 12/26/17 20:00: Urine Color YELLOW, Urine Clarity CLEAR, Urine pH 6, Urine Specific [place] 1.015L, Urine Protein NEGATIVE, Urine Glucose (UA) NEGATIVE, Urine Ketones NEGATIVE, Urine Nitrite NEGATIVE, Urine Bilirubin NEGATIVE, Urine Urobilinogen NORMAL, Urine Leukocyte Esterase 1+H, Urine RBC (Auto) NEGATIVE, Urine RBC NONE , Urine WBC 2-5, Urine Crystals NONE, Urine Bacteria TRACE, Urine Casts NONE, Urine Mucus NEGATIVE, Urine Culture Indicated NO 12/26/17 21:15: White Blood Count 10.4, Red Blood Count 4.21L, Hemoglobin 12.0, Hematocrit 35, Mean Corpuscular Volume 84, Mean Corpuscular Hemoglobin 29, Mean Corpuscular Hemoglobin Concent 34, Red Cell Distribution Width 14.9H, Platelet Count 177, Mean Platelet Volume 11.8H, Neutrophils (%) (Auto) 72, Lymphocytes (%) (Auto) 20 , Monocytes (%) (Auto) 6, Eosinophils (%) (Auto) 1, Basophils (%) (Auto) 0, Neutrophils # (Auto) 7.5, Lymphocytes # (Auto) 2.1, Monocytes # (Auto) 0.7, Eosinophils # (Auto) 0.1, Basophils # (Auto) 0.0 Microbiology 12/26/17 Urine Culture - Preliminary, Resulted NO GROWTH WILIAN RASHEED DO Dec 27, 2017 17:53
[2017-12-27] MEDS: IBUPROFEN 600 MG (MOTRIN) TAB PO SCH (18:30)
[2017-12-27] MEDS ORDERED: CATHETER FLUSH 10 ML SYR IV SCH (22:00)
[2017-12-28] VITALS: BP 104/63
[2017-12-28] MEDS: IBUPROFEN 600 MG (MOTRIN) TAB PO SCH ×5 (00:05→23:50)
[2017-12-28] MEDS: DOCUSATE SODIUM 100 MG (COLACE) CAP PO SCH ×3 (00:05→20:22)
[2017-12-28 06:09] LABS: BASOPHILS % (AUTO) 0 % (0-10); EOSINOPHILS # (AUTO) 0.1 10^3/uL (0.0-0.3); EOSINOPHILS % (AUTO) 1 % (0-10); HEMATOCRIT 33 % (35-52); HEMOGLOBIN 11.1 G/DL (11.5-16.0); LYMPHOCYTES # (AUTO) 2.3 X 10^3 (1.0-4.0); LYMPHOCYTES % (AUTO) 14 % (12-44); MEAN CORPUSCULAR HEMOGLOBIN 28 PG (25-34); MEAN CORPUSCULAR HGB CONC 34 G/DL (32-36); MEAN CORPUSCULAR VOLUME 84 FL (80-99); MEAN PLATELET VOLUME 11.9 FL (7.4-10.4); MONOCYTES # (AUTO) 0.9 X 10^3 (0.0-1.0); MONOCYTES % (AUTO) 6 % (0-12); NEUTROPHILS # (AUTO) 12.9 X 10^3 (1.8-7.8); NEUTROPHILS % (AUTO) 79 % (42-75); PLATELET COUNT 158 10^3/uL (130-400); RED BLOOD COUNT 3.93 10^6/uL (4.35-5.85); RED CELL DISTRIBUTION WIDTH 14.9 % (10.0-14.5); WHITE BLOOD COUNT 16.3 10^3/uL (4.3-11.0)
[2017-12-28 06:16] VITALS: BP 98/52
[2017-12-28] MEDS ORDERED: PRENATAL VITAMIN 1 EA TAB PO SCH (07:00)
[2017-12-28] MEDS ORDERED: FERROUS SULF 325 MG (IRON) TAB PO SCH (08:00)
--- NOTE | 2017-12-28 10:13 | Anesthesia-Regional Post-Op ---
Regional Patient Condition Mental Status: Alert, Oriented x3 Circulation: Same as Pre-Op Headache: Absent Sensation: Full Recovery Motor Block: Absent Post Op Complications Complications None Follow Up Care/Instructions Patient Instructions None needed. Anesthesia/Patient Condition Patient is doing well, no complaints, stable vital signs, no apparent adverse anesthesia problems. No complications reported per nursing. LANDRY CHAVARRIA CRNA Dec 28, 2017 10:13
[2017-12-28 12:43] VITALS: BP 104/60
[2017-12-28 17:45] VITALS: BP 80/49
[2017-12-28 18:32] VITALS: BP 96/60
[2017-12-28 23:50] VITALS: BP 93/61
[2017-12-29] MEDS: IBUPROFEN 600 MG (MOTRIN) TAB PO SCH (05:44)
[2017-12-29 05:52] VITALS: BP 88/55
--- NOTE | 2017-12-29 09:02 | Postpartum Progress Note ---
Note Note Day # [] Subjective: Patient is without complaints. Ambulating, voiding. Tolerating a regular diet without nausea or vomiting. Normal lochia. Pain is well controlled with oral pain medications. [] feeding. [] Objective: VS - Last 72 Hours, by Label 12/26/17 12/26/17 12/26/17 12/27/17 20:22 21:30 22:16 00:58 Temp 97.7 97.5 Pulse 102 76 72 52 Resp 18 18 18 18 B/P (MAP) 115/76 (89) 98/55 (69) 117/79 (92) Pulse Ox 99 O2 Delivery Room Air Room Air Room Air Room Air 12/27/17 12/27/17 12/27/17 12/27/17 05:08 08:00 09:10 09:15 Temp 97.9 97.5 Pulse 52 53 55 64 Resp 18 18 B/P (MAP) 121/74 (90) 118/78 (91) 129/80 (96) Pulse Ox 99 100 O2 Delivery Room Air Room Air Room Air Room Air 12/27/17 12/27/17 12/27/17 12/27/17 09:18 09:21 09:30 09:33 Pulse 56 74 80 80 B/P (MAP) 149/59 (89) 122/62 (82) 127/73 (91) 130/79 (96) Pulse Ox 99 99 98 94 O2 Delivery Room Air Room Air Room Air Room Air 12/27/17 12/27/17 12/27/17 12/27/17 09:36 09:39 09:45 09:48 Pulse 100 96 94 79 B/P (MAP) 124/73 (90) 115/64 (81) 111/61 (78) Pulse Ox 96 95 94 O2 Delivery Room Air Room Air Room Air Room Air 12/27/17 12/27/17 12/27/17 12/27/17 09:51 09:54 09:57 10:00 Temp 97.2 Pulse 101 94 99 104 B/P (MAP) 115/66 (82) 117/66 (83) 109/65 (80) 117/59 (78) Pulse Ox 96 95 97 O2 Delivery Room Air Room Air Room Air Room Air 12/27/17 12/27/17 12/27/17 12/27/17 10:08 10:15 10:20 10:30 Pulse 66 68 80 77 Resp 18 B/P (MAP) 115/59 (77) 110/57 (74) 115/57 (76) Pulse Ox 94 94 94 96 O2 Delivery Room Air Room Air Room Air Room Air 12/27/17 12/27/17 12/27/17 12/27/17 10:35 10:45 10:50 11:00 Pulse 79 77 70 62 B/P (MAP) 109/54 (72) 111/56 (74) Pulse Ox 97 96 98 97 O2 Delivery Room Air Room Air Room Air Room Air 12/27/17 12/27/17 12/27/17 12/27/17 11:05 11:15 11:20 11:30 Pulse 53 57 53 57 B/P (MAP) 93/46 (62) 92/46 (61) Pulse Ox 98 98 97 98 O2 Delivery Room Air Room Air Room Air Room Air 12/27/17 12/27/17 12/27/17 12/27/17 11:35 11:45 11:50 12:00 Pulse 64 57 61 61 B/P (MAP) 111/54 (73) 99/58 (72) Pulse Ox 100 98 99 99 O2 Delivery Room Air Room Air Room Air Room Air 12/27/17 12/27/17 12/27/17 12/27/17 12:05 12:15 12:20 12:30 Temp 97.3 Pulse 77 61 73 63 Resp 18 B/P (MAP) 106/64 (78) 107/62 (77) Pulse Ox 99 99 99 99 O2 Delivery Room Air Room Air Room Air Room Air 12/27/17 12/27/17 12/27/17 12/27/17 12:35 12:45 12:50 13:00 Pulse 63 101 60 101 B/P (MAP) 100/56 (71) 102/58 (73) Pulse Ox 99 100 98 99 O2 Delivery Room Air Room Air Room Air Room Air 12/27/17 12/27/17 12/27/17 12/27/17 13:05 13:15 13:20 13:30 Pulse 67 73 82 108 B/P (MAP) 100/56 (71) 90/53 (65) Pulse Ox 99 99 99 99 O2 Delivery Room Air Room Air Room Air Room Air 12/27/17 12/27/17 12/27/1712/27/18 13:35 13:45 13:50 14:00 Pulse 92 76 82 100 B/P (MAP) 105/68 (80) 103/73 (83) Pulse Ox 99 100 99 99 O2 Delivery Room Air Room Air Room Air Room Air 12/27/17 12/27/17 12/27/17 12/27/17 14:05 14:15 14:20 14:30 Pulse 75 61 69 68 B/P (MAP) 99/68 (78) 103/56 (72) Pulse Ox 100 98 98 98 O2 Delivery Room Air Room Air Room Air Room Air 12/27/17 12/27/17 12/27/17 12/27/17 14:45 14:55 15:00 15:05 Temp 98.3 Pulse 76 82 66 83 B/P (MAP) 104/55 (71) 125/63 (83) Pulse Ox 98 100 99 100 O2 Delivery Room Air Room Air Room Air Room Air 12/27/17 12/27/17 12/27/17 12/27/17 15:15 15:20 15:30 15:35 Pulse 66 81 86 71 B/P (MAP) 104/63 (77) 109/68 (82) Pulse Ox 99 99 100 99 O2 Delivery Room Air Room Air Room Air Room Air 12/27/17 12/27/17 12/27/17 12/27/17 15:45 15:50 16:00 16:10 Pulse 71 75 83 64 B/P (MAP) 123/64 (83) 119/57 (77) Pulse Ox 100 100 99 100 O2 Delivery Room Air Room Air Room Air Room Air 12/27/17 12/27/17 12/27/17 12/27/17 16:15 16:20 16:30 16:35 Pulse 90 81 81 Resp 18 B/P (MAP) 107/67 (80) 115/68 (84) Pulse Ox 100 O2 Delivery Room Air Room Air Room Air Room Air 12/27/17 12/27/17 12/27/17 12/27/17 16:45 16:50 17:00 17:05 Pulse 91 111 B/P (MAP) 111/70 (84) 124/71 (88) O2 Delivery Room Air Room Air Room Air Room Air 12/27/17 12/27/17 12/27/17 12/27/17 17:10 17:15 17:35 17:52 Temp 99.7 98.9 Pulse 136 116 Resp 18 18 B/P (MAP) 132/61 (84) 118/59 (78) O2 Delivery Non Rebreather Non Rebreather Room Air Room Air O2 Flow Rate 15.00 15.00 12/27/17 12/27/17 12/27/17 12/27/17 18:05 18:20 18:44 19:45 Temp 99.0 99.4 100.5 99.5 Pulse 94 114 102 104 Resp 18 18 B/P (MAP) 114/61 (78) 108/58 (75) 107/68 (81) 103/68 (80) Pulse Ox 96 O2 Delivery Room Air Room Air 12/28/17 12/28/17 12/28/17 12/28/17 00:00 06:16 12:43 17:45 Temp 98.9 98.4 97.7 96.4 Pulse 75 76 95 70 Resp B/P (MAP) 104/63 (77) 98/52 (67) 104/60 (75) 80/49 (59) Pulse Ox 98 97 98 12/28/17 12/28/17 12/28/17 12/29/17 18:32 20:30 23:50 05:52 Temp 96.9 96.0 Pulse 67 75 80 Resp 18 B/P (MAP) 96/60 (72) 93/61 (72) 88/55 (66) Pulse Ox 98 O2 Delivery Room Air Room Air Room Air Physical Exam: General - Alert and oriented, no apparent distress Abdomen - Soft, appropriately tender to palpation, non-distended, fundus firm at umbilicus Extremities - no edema, negative Kari's bilaterally [] Assessment: [] post- day # [], status post [] vaginal delivery. Recovering well, hemodynamically stable [] Plan: Routine care. Encourage breast feeding. Encourage ambulation. Ferrous sulfate supplementation. Plan for discharge [] Vitals - Labs Vital Signs - I&O Vital Signs Date Time Temp Pulse Resp B/P (MAP) Pulse Ox O2 Delivery O2 Flow Rate FiO2 12/29/17 05:52 96.0 80 18 88/55 (66) 98 Room Air 12/28/17 23:50 96.9 75 18 93/61 (72) Room Air 12/28/17 20:30 18 Room Air 12/28/17 18:32 67 96/60 (72) 12/28/17 17:45 96.4 70 18 80/49 (59) 98 12/28/17 12:43 97.7 95 18 104/60 (75) Labs Microbiology 12/26/17 Urine Culture - Final, Complete WILIAN RASHEED DO Dec 29, 2017 09:02
[2017-12-29] MEDS ORDERED: ACHD5005 PO (09:03)
[2017-12-29] MEDS ORDERED: DOCU100C37 PO (09:03)
[2017-12-29] MEDS ORDERED: IBUP-1773 PO (09:03)
--- NOTE | 2017-12-29 09:04 | Discharge Inst-Women's Service ---
Discharge Inst-Women's Serv Depart Medication/Instructions New, Converted or Re-Newed RX: RX on Chart Final Diagnosis post date vaginal delivery epidural Consults/Follow Up Additional Follow Up: Yes Activity Activity: Activity as Tolerated Driving Instructions: You May Drive NO SMOKING: NO SMOKING Nothing Inside Vagina: No Douching, No Phillips, No Tampons Diet Discharge Diet: No Restrictions Symptoms to Report to : Swelling Increased, Bleeding Excessive, Fever Over 101 Degrees F, Vaginal Bleeding Increase, Vaginal Discharge Foul For Any Problems or Questions: Contact Your Physician WILIAN RASHEED DO Dec 29, 2017 09:04
== END 2017-12-29 11:40 | disposition home or self-care (01) | DRG 775 ==
LOC: LDRP 20:04
PROVIDERS: ADMIT Obstetrics & Gynecology; ATTEND Obstetrics & Gynecology
PROC: 10E0XZZ Delivery of Products of Conception, External Approach (ICD-10-PCS; principal; 2017-12-27)
PROC: 0HQ9XZZ Repair Perineum Skin, External Approach (ICD-10-PCS; 2017-12-27)
DX: O48.0 Post-term pregnancy (principal); O76 Abnormality in fetal heart rate and rhythm complicating labor and delivery; O70.0 First degree perineal laceration during delivery; O69.81X0 Labor and delivery complicated by cord around neck, without compression, not applicable or unspecified; O99.213 Obesity complicating pregnancy, third trimester; E66.9 Obesity, unspecified; Z68.41 Body mass index [BMI] 40.0-44.9, adult; Z3A.40 40 weeks gestation of pregnancy; Z37.0 Single live birth; Z23 Encounter for immunization
CPT/HCPCS: 36415; 81000; 85025; 86850; 86900; 86901; 87088

== ENCOUNTER 2018-12-09 08:18 | Emergency (ER) | payer BC, MEDICAID ==
[~2018-12-09] VITALS: Ht 162.6 cm; Wt 108.9 kg
[~2018-12-09 08:18] MED LIST changes: +ACHD5005 PO; +DOCU100C37 PO; +IBUP-1773 PO; +PREN-142 PO
--- OUTSIDE RECORDS SUMMARY | 2018-12-09 08:23 | XMS REPORT ---
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 582987194 Problem History of recurrent miscarriages N96 Active 732553200 ALLERGIES No Known Allergies ENCOUNTERS Encounter Location Date Diagnosis [facility] [id number] [place] [phone] Apr, care, first in first trimester Z34.01 and 9 weeks gestation of Z3A.09 [facility] [address], [place] [address] Mar, [place] [address] [place] [phone] Mar, Encounter for test, result unknown Z32.00 IMMUNIZATIONS No Known Immunizations SOCIAL HISTORY Never Assessed REASON FOR VISIT OB Flowsheet History---ADaviedRN PLAN OF CARE VITAL SIGNS MEDICATIONS No Known Medications RESULTS No Results PROCEDURES No Known procedures INSTRUCTIONS MEDICATIONS ADMINISTERED No Known Medications MEDICAL (GENERAL) HISTORY Type Description Date Medical History anemia Surgical History appendectomy
--- OUTSIDE RECORDS SUMMARY | 2018-12-09 08:23 | XMS REPORT ---
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 545495856 Problem History of recurrent miscarriages N96 Active 230141558 ALLERGIES No Information ENCOUNTERS Encounter Location Date Diagnosis [place] [address] [place] [phone] February, Visit for TB skin test Z11.1 [place] [address] [place] [phone] Apr, care, first in first trimester Z34.01 and 9 weeks gestation of Z3A.09 [place] [address] [place] [phone] Mar, [place] [address] [place] [phone] Mar, Encounter for test, result unknown Z32.00 IMMUNIZATIONS No Known Immunizations SOCIAL HISTORY Never Assessed REASON FOR VISIT tb skin test PLAN OF CARE Activity Details Follow Up 48-72 hours. 48-72 hours Reason: VITAL SIGNS MEDICATIONS Unknown Medications RESULTS No Results PROCEDURES Procedure Date Ordered Result Body Site TB INTRADERMAL 2018-03-21 N/A TB INTRADERMAL TEST March 21, 2018 TB INTRADERMAL TEST March 21, 2018 INSTRUCTIONS MEDICATIONS ADMINISTERED No Known Medications MEDICAL (GENERAL) HISTORY Type Description Date Medical History anemia Surgical History appendectomy
--- OUTSIDE RECORDS SUMMARY | 2018-12-09 08:23 | XMS REPORT | Clinical Summary ---
Author Author [facility] Organization [facility] Address Unknown Phone Unavailable Care Team Providers Care System Consultant Name Role Phone PCP Unavailable Allergies Not on File Current Medications Not on file Active Problems Not on file Social History Tobacco Use Types Packs/Day Years Used Date Never Assessed Sex Assigned at Date Recorded Not on file Last Filed Vital Signs Not on file Plan of Treatment Not on file Results Not on filefrom Last 3 Months
--- OUTSIDE RECORDS SUMMARY | 2018-12-09 08:23 | XMS REPORT ---
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 503332354 Problem History of recurrent miscarriages N96 Active 624434404 ALLERGIES No Information ENCOUNTERS Encounter Location Date Diagnosis [place] [address] [place] [phone] Apr, care, first in first trimester Z34.01 and 9 weeks gestation of Z3A.09 [place] [address] [place] [phone] Mar, [place] [address] [place] [address] [id number] [place] [phone] Mar, Encounter for test, result unknown Z32.00 IMMUNIZATIONS No Known Immunizations SOCIAL HISTORY Never Assessed REASON FOR VISIT Blood test (walk-in) PLAN OF CARE VITAL SIGNS MEDICATIONS No Known Medications RESULTS Name Result Date Reference Range TEST, SERUM (QUAL) 2017-04-25 hCG,Beta Subunit,Qual,Serum Positive Negative <6 PROCEDURES Procedure Date Ordered Result Body Site CHORIONIC GONADOTROPIN ASSAY April 25, 2017 VENIPUNCT, ROUTINE* April 25, 2017 INSTRUCTIONS MEDICATIONS ADMINISTERED No Known Medications MEDICAL (GENERAL) HISTORY Type Description Date Medical History anemia Surgical History appendectomy
--- OUTSIDE RECORDS SUMMARY | 2018-12-09 08:23 | XMS REPORT ---
Author Author Shantell Gatica [facility] Address [address] [place], [place] [id number] Care Team Providers Care Department Store Door Greeter Name Role Phone Shantell Gatica PCP Allergies and Adverse Reactions Name Reaction Notes No known drug allergy Plan of Treatment Not available. Medications Active Name Start Date Estimated Completion Date SIG Comments Vitamin Take 1 daily Problem List Not available. Vital Signs Date Time BP-Sys(mm[Hg] BP-Fatimah(mm[Hg]) HR(bpm) RR(rpm) Temp WT HT HC BMI BSA BMI Percentile O2 Sat(%) 12/06/2018 12:18:00 PM 130 mmHg 80 mmHg 80 bpm 20 rpm 97.9 F 232 lbs 64 in 39.8223 kg/m 2.1799 m 99 % Social History Name Description Comments Tobacco Never smoker History of Procedures Date Ordered Description Order Status 12/06/2018 12:00 AM NO CHARGE OV Reviewed Results Summary Not available. History Of Immunizations Not available. History of Past Illness Not available. Payers Insurance Name Company Name Plan Name Plan Number Policy Number Policy Group [id number] Saturday, 2018 History of Encounters Visit Date Visit Type Provider 12/06/2018 Office visit Shantell Gaitca APRN
--- OUTSIDE RECORDS SUMMARY | 2018-12-09 08:24 | XMS REPORT | Continuity of Care Document ---
Author Author [facility] Organization [facility] Address Unknown Phone Unavailable Allergies Active Description Code Type Severity Reaction Onset Reported/Identified Relationship to Patient Clinical Status Yes No Known Drug Allergies [id number] Drug Allergy Unknown N/A 03/24/2015 Medications There [...] OF 11/28/2017 LIDA FAIR APRN Ot Z79.52 RESIDENTIAL (CURRENT) USE OF SYSTEMIC STER 11/28/2017 LIDA FAIR APRN Ot Z90.49 ACQUIRED ABSENCE OF OTHER SPECIFIED PART 11/30/2017 LIDA FAIR APRN Ot O99.89 OTH DISEASES AND CONDITIONS COMPL PREG/C 11/30/2017 LIDA FAIR APRN Ot S60.454A SUPERFICIAL FOREIGN BODY OF RIGHT RING F 11/30/2017 LIDA FAIR CARDIOPULMONARY TECHNOLOGIST Ot X58.XXXA EXPOSURE TO OTHER SPECIFIED FACTORS, INI 11/30/2017 LIDA FAIR CARDIOPULMONARY TECHNOLOGIST Ot Z3A.36 36 WEEKS GESTATION OF 11/30/2017 LIDA FAIR CARDIOPULMONARY TECHNOLOGIST Ot Z79.52 RESIDENTIAL (CURRENT) USE OF SYSTEMIC STER 11/30/2017 LIDA FAIR CARDIOPULMONARY TECHNOLOGIST Ot Z90.49 ACQUIRED ABSENCE OF OTHER SPECIFIED PART 12/29/2017 WILIAN RASHEED DO Ot E66.9 OBESITY, UNSPECIFIED 12/29/2017 JUMANA RASHEED DOA Erwin Ot O48.0 POST-TERM 12/29/2017 JUMANA RASHEED DOA Erwin Ot O69.81X0 LABOR AND DEL COMP BY CORD AROUND NECK, 12/29/2017 WILIAN RASHEED DO Ot O70.0 FIRST DEGREE PERINEAL LACERATION DURING 12/29/2017 JUMANA RASHEED DOA Erwin Ot O76 ABNLT IN HEART RATE AND RHYTHM COM 12/29/2017 WILIAN RASHEED DO Ot O99.213 OBESITY COMPLICATING , THIRD TR 12/29/2017 JUMANA RASHEED DOA C Ot Z23 ENCOUNTER FOR IMMUNIZATION 12/29/2017 WILIAN RASHEED DO Ot Z37.0 SINGLE LIVE 12/29/2017 WILIAN RASHEED DO Ot Z3A.40 40 WEEKS GESTATION OF 12/29/2017 JUMANA RASHEED DOA Erwin Ot Z68.41 BODY MASS INDEX (BMI) 40.0-44.9, ADULT Procedures Code Description Performed By Performed On [id number] REPAIR PERINEUM SKIN, EXTERNAL APPROACH 12/27/2017 [id number] DELIVERY OF PRODUCTS OF CONCEPTION, EXTE 12/27/2017 Results Test Result Range hCG,Beta Subunit,Qual,Serum - 04/25/17 08:18 hCG,Beta Subunit,Qual,Serum Positive mIU/mL Negative <6 Urine Culture, Routine - 05/11/17 11:28 Urine Culture, Routine Note Genital Culture, Routine - 05/11/17 11:28 Genital Culture, Routine Note CBC With Differential/Platelet - 05/11/17 11:28 WBC 7.0 x10E3/uL 3.4-10.8 RBC 4.60 x10E6/uL 3.77-5.28 Hemoglobin 12.4 g/dL 11.1-15.9 Hematocrit 38.3 % 34.0-46.6 MCV 83 fL 79-97 MCH 27.0 pg 26.6-33.0 MCHC 32.4 g/dL 31.5-35.7 RDW 14.4 % 12.3-15.4 Platelets 177 x10E3/uL 150-379 Neutrophils 68 % Lymphs 25 % Monocytes 6 % Eos 1 % Basos 0 % Neutrophils (Absolute) 4.8 x10E3/uL 1.4-7.0 Lymphs (Absolute) 1.8 x10E3/uL 0.7-3.1 Monocytes(Absolute) 0.4 x10E3/uL 0.1-0.9 Eos (Absolute) 0.1 x10E3/uL 0.0-0.4 Baso (Absolute) 0.0 x10E3/uL 0.0-0.2 Immature Granulocytes 0 % Immature Grans (Abs) 0.0 x10E3/uL 0.0-0.1 ABO Grouping and Rho(D) Typing - 05/11/17 11:28 ABO Grouping A Rh Factor Positive Rubella Antibodies, IgG - 05/11/17 11:28 Rubella Antibodies, IgG 2.76 index Immune >0.99 TSH - 05/11/17 11:28 TSH 1.180 uIU/mL 0.450-4.500 Antibody Screen - 05/11/17 11:28 Antibody Screen Negative Negative Complete urinalysis with reflex to culture - [...] 21:25 Serum or plasma choriogonadotropin measurement (units/volume) 99198 m[iU]/mL <5 Complete urinalysis with reflex to culture - 12/26/17 20:00 Urine color determination YELLOW NRG Urine clarity determination CLEAR NRG Urine pH measurement by test strip 6 5-9 Specific gravity of urine by test strip 1.015 1.016- 1.022 Urine protein assay by test strip, semi-quantitative NEGATIVE NEGATIVE Urine glucose detection by automated test strip NEGATIVE NEGATIVE Erythrocytes detection in urine sediment by light microscopy NEGATIVE NEGATIVE Urine ketones detection by automated test strip NEGATIVE NEGATIVE Urine nitrite detection by test strip NEGATIVE NEGATIVE Urine total bilirubin detection by test strip NEGATIVE NEGATIVE Urine urobilinogen measurement by automated test strip (mass/volume) NORMAL NORMAL Urine leukocyte esterase detection by dipstick 1+ NEGATIVE Automated urine sediment erythrocyte count by microscopy (number/high power field) NONE NRG Automated urine sediment leukocyte count by microscopy (number/high power field ) [HPF] NRG Bacteria detection in urine sediment by light microscopy TRACE NRG Crystals detection in urine sediment by light microscopy NONE NRG Casts detection in urine sediment by light microscopy NONE NRG Mucus detection in urine sediment by light microscopy NEGATIVE NRG Complete urinalysis with reflex to culture NO NRG Bacterial urine culture - 12/26/17 20:00 URINE CULTURE RESULTS <10,000/ML NRG Complete blood count (CBC) with automated white blood cell (WBC) differential - 12/26/17 21:15 Blood leukocytes automated count (number/volume) 10.4 10*3/uL 4.3-11.0 Blood erythrocytes automated count (number/volume) 4.21 10*6/uL 4.35-5.85 Venous blood hemoglobin measurement (mass/volume) 12.0 g/dL 11.5-16.0 Blood hematocrit (volume fraction) 35 % 35-52 Automated erythrocyte mean corpuscular volume 84 [foz_us] 80-99 Automated erythrocyte mean corpuscular hemoglobin (mass per erythrocyte) 29 pg 25-34 Automated erythrocyte mean corpuscular hemoglobin concentration measurement ( mass/volume) 34 g/dL 32-36 Automated erythrocyte distribution width ratio 14.9 % 10.0-14.5 Automated blood platelet count (count/volume) 177 10*3/uL 130-400 Automated blood platelet mean volume measurement 11.8 [foz_us] 7.4-10.4 Automated blood neutrophils/100 leukocytes 72 % 42-75 Automated blood lymphocytes/100 leukocytes 20 % 12-44 Blood monocytes/100 leukocytes 6 % 0-12 Automated blood eosinophils/100 leukocytes 1 % 0-10 Automated blood basophils/100 leukocytes 0 % 0-10 Blood neutrophils automated count (number/volume) 7.5 10*3 1.8-7.8 Blood lymphocytes automated count (number/volume) 2.1 10*3 1.0-4.0 Blood monocytes automated count (number/volume) 0.7 10*3 0.0-1.0 Automated eosinophil count 0.1 10*3/uL 0.0-0.3 Automated blood basophil count (count/volume) 0.0 10*3/uL 0.0-0.1 Blood type T Indirect antibody screen panel - 12/26/17 21:15 ABO+Rh group AP NRG Transfusion band number [id number] NRG Blood group antibody screen NEGATIVE NRG Complete blood count (CBC) with automated white blood cell (WBC) differential - 12/28/17 05:55 Blood leukocytes automated count (number/volume) 16.3 10*3/uL 4.3-11.0 Blood erythrocytes automated count (number/volume) 3.93 10*6/uL 4.35-5.85 Venous blood hemoglobin measurement (mass/volume) 11.1 g/dL 11.5-16.0 Blood hematocrit (volume fraction) 33 % 35-52 Automated erythrocyte mean corpuscular volume 84 [foz_us] 80-99 Automated erythrocyte mean corpuscular hemoglobin (mass per erythrocyte) 28 pg 25-34 Automated erythrocyte mean corpuscular hemoglobin concentration measurement ( mass/volume) 34 g/dL 32-36 Automated erythrocyte distribution width ratio 14.9 % 10.0-14.5 Automated blood platelet count (count/volume) 158 10*3/uL 130-400 Automated blood platelet mean volume measurement 11.9 [foz_us] 7.4-10.4 Automated blood neutrophils/100 leukocytes 79 % 42-75 Automated blood lymphocytes/100 leukocytes 14 % 12-44 Blood monocytes/100 leukocytes 6 % 0-12 Automated blood eosinophils/100 leukocytes 1 % 0-10 Automated blood basophils/100 leukocytes 0 % 0-10 Blood neutrophils automated count (number/volume) 12.9 10*3 1.8-7.8 Blood lymphocytes automated count (number/volume) 2.3 10*3 1.0-4.0 Blood monocytes automated count (number/volume) 0.9 10*3 0.0-1.0 Automated eosinophil count 0.1 10*3/uL 0.0-0.3 Automated blood basophil count (count/volume) 0.0 10*3/uL 0.0-0.1 Encounters ACCT No. Visit Date/Time Discharge Status Pt. Type Provider Facility Loc./Unit Complaint [id number] 12/26/2017 20:04:00 12/29/2017 11:40:00 DIS Inpatient WILIAN RASHEED DO [facility] LDRP INDUCTION [id number] 11/28/2017 10:40:00 11/28/2017 11:19:00 DIS Emergency LIDA FAIR APRN [facility] ER RING STUCK ON FINGER [id number] 09/21/2017 09:56:00 09/21/2017 23:59:59 CLS Outpatient WILIAN RASHEED DO [facility] RAD SURVEY [id number] 08/19/2017 10:02:00 08/19/2017 23:59:59 CLS Outpatient WILIAN RASHEED DO [facility] RAD SURVEY, [id number] 07/11/2017 20:08:00 07/11/2017 22:05:00 DIS Emergency LIDA FAIR APRN [facility] ER 16 WKS PREG/SPOTTING [id number] 05/19/2017 13:53:00 05/19/2017 23:59:59 CLS Outpatient WILIAN RASHEED DO [facility] RAD Z34.01 CARE [id number] 03/24/2015 17:25:00 03/24/2015 18:52:00 DIS Emergency DOMENICO HOYOS DO [facility] ER RASH [id number] 12/09/2018 08:19:00 ACT Emergency JOSE ROBLES, KATHLEEN Garcia [facility] ER SINUS PRESSURE/PT IS 12 WEEKS [id number] 04/26/2017 08:06:00 Document Registration [id number] 05/13/2017 03:07:00 Document Registration [id number] 12/06/2018 13:01:45 ACT Outpatient Shantell Gatica [id number] 05/14/2017 09:10:00 Document Registration [id number] 05/12/2017 17:08:00 Document Registration [id number] 03/21/2018 16:00:00 03/21/2018 23:59:59 CLS Outpatient JOHANNE OROSCO [facility]
--- NOTE | 2018-12-09 09:09 | ED Cough/URI ---
General Chief Complaint: Cough/Cold/Flu Symptoms Stated Complaint: SINUS PRESSURE/PT IS 12 WEEKS Nursing Triage Note: Ambulatory to rm 9. Pt reports having, "sinus thing" for three weeks and SAUL for 2 weeks. Pt reports R eye feels, "fuzzy" and like there's a "white hot poker" in the eye. Pt reports a dry/hacking, non-productive cough. Pt denies any fever. Sepsis Screen: No Definite Risk Source: patient Exam Limitations: no limitations History of Present Illness Date Seen by Provider: Dec 09, 2018 Time Seen by Provider: 09:03 Initial Comments This 28-year-old currently finishing her first trimester presents with a one-week history of progressive right maxillary sinus pain for the last 3 weeks. The patient has had no associated photophobia headache or stiff neck. She denies productive cough, nausea vomiting or diarrhea, dysuria or frequency, vaginal bleeding or lower abdominal cramping pain. Patient is under the care of Dr. Rasheed. Allergies and Home Medications Allergies Coded Allergies: No Known Drug Allergies (Unverified , 03/24/15) Home Medications Docusate Sodium 100 Mg Capsule, 100 MG PO BID Prescribed by: WILIAN RASHEED on 12/29/17 0903 Hydrocodone Bit/Acetaminophen 1 Tab Tab, 1-2 TAB PO Q4H PRN for PAIN-MODERATE Prescribed by: WILIAN RASHEED on 12/29/17 0903 Ibuprofen 600 Mg Tablet, 600 MG PO Q6H Prescribed by: WILIAN RASHEED on 12/29/17 0903 Vit No.124/Iron/FA 1 Each Tablet, 1 EACH PO DAILY, (Reported) Patient Home Medication List Home Medication List Reviewed: Yes Review of Systems Review of Systems Constitutional: No chills, No fever EENTM: eye pain (on the left), other (right maxillary sinus tenderness); No hearing loss Respiratory: No cough Cardiovascular: No chest pain Gastrointestinal: No diarrhea, No nausea, No vomiting Genitourinary: No dysuria, No frequency : Yes Musculoskeletal: No back pain Skin: No rash Psychiatric/Neurological: No Symptoms Reported Hematologic/Lymphatic: No Symptoms Reported Immunological/Allergic: no symptoms reported Past Bbtgblo-Dyjujq-Msknhy Hx Past Med/Social Hx: Reviewed Nursing Past Med/Soc Hx Patient Social History Alcohol Use: Denies Use Recreational Drug Use: No Smoking Status: Former Smoker Type Used: Cigarettes Former Smoker, Quit: Dec 01, 2009 Recent Foreign Travel: No Contact w/Someone Who Travel: No Recent Infectious Disease Expo: No Recent Hopitalizations: No Physical Abuse: No Sexual Abuse: No Seasonal Allergies Seasonal Allergies: Yes Past Medical History Surgeries: Yes Appendectomy Respiratory: No Cardiac: No Neurological: No : Yes (reports 12 weeks) 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 Disorders: No Genitourinary: No Gastrointestinal: No Musculoskeletal: No Endocrine: No HEENT: No Cancer: No Psychosocial: No Integumentary: No Blood Disorders: Yes (anemia) Family Medical History Cardiovascular disease GRANDFATHER, MATERNAL Diabetes mellitus GRANDMOTHER, MATERNAL FH: Crohn's disease GRANDMOTHER, MATERNAL 19 MOTHER Physical Exam Vital Signs - First Documented 12/09/18 08:46 O2 Delivery Room Air Capillary Refill : Less Than 3 Seconds Height: 5'4.00" Weight: 240lbs. 0.0oz. 108.869863ep; 41.9 BMI Method:Stated General Appearance: WD/WN, mild distress Eyes: Bilateral Eye Normal Inspection HEENT: normal ENT inspection Neck: normal inspection Respiratory: lungs clear, normal breath sounds Cardiovascular: normal peripheral pulses, regular rate, rhythm Gastrointestinal: normal bowel sounds, non tender, soft Extremities: normal range of motion, non-tender, normal inspection Neurologic/Psychiatric: no motor/sensory deficits, alert, normal mood/affect, oriented x 3 Skin: normal color, warm/dry Progress/Results/Core Measures Suspected Sepsis Recent Fever Within 48 Hours: No Infection Criteria Present: None New/Unexplained Altered Menta: No Sepsis Screen: No Definite Risk SIRS Temperature:98.0 Pulse: 84 Respiratory Rate: 20 Blood Pressure 107 /77 Mean: 87 Results/Orders Vital Signs/I&O 12/09/18 08:46 O2 Delivery Room Air Capillary Refill : Less Than 3 Seconds Blood Pressure Mean: 87 Progress Note : Time: 09:22 Progress Note I discussed findings with Dr. Rasheed who is agreeable to treat the patient with azithromycin and prednisone. Prescription rewritten, the patient was discharged , and asked follow up with Dr. Rasheed on Tuesday if not improved. Departure Communication (Admissions) Time/Spoke to Consulting Phy: 09:24 Dr. Rasheed. Impression Primary Impression: Sinusitis Qualified Codes: J01.00 - Acute maxillary sinusitis, unspecified Additional Impression: Qualified Codes: Z3A.12 - 12 weeks gestation of Disposition: HOME, SELF-CARE Condition: Unchanged Departure-Patient Inst. Decision time for Depature: 09:24 Referrals: WILIAN RASHEED DO (PCP/Family) Primary Care Physician Patient Instructions: Sinusitis in Adults Add. Discharge Instructions: Zithromax and prednisone as prescribed. Close follow Dr. Morales Tuesday if not improved. Return if any problems or questions. All discharge instructions reviewed with patient and/or family. Voiced understanding. KATHLEEN GARCIA MD Dec 09, 2018 09:09
[2018-12-09 09:34] VITALS: BP 122/72
== END 2018-12-09 09:33 | disposition home or self-care (01) ==
LOC: EDUNIT# 08:18 → ER 08:19
DX: O99.511 Diseases of the respiratory system complicating pregnancy, first trimester (principal); J32.9 Chronic sinusitis, unspecified; O99.011 Anemia complicating pregnancy, first trimester; D64.9 Anemia, unspecified; O99.331 Smoking (tobacco) complicating pregnancy, first trimester; F17.210 Nicotine dependence, cigarettes, uncomplicated; Z3A.12 12 weeks gestation of pregnancy; Z82.49 Family history of ischemic heart disease and other diseases of the circulatory system
CPT/HCPCS: 99282

== ENCOUNTER 2018-12-23 08:43 | Emergency (ER) | payer BC ==
[~2018-12-23] VITALS: Ht 162.6 cm; Wt 108.9 kg
--- OUTSIDE RECORDS SUMMARY | 2018-12-23 08:53 | XMS REPORT | Clinical Summary ---
Author Author [facility] Organization [facility] Address Unknown Phone Unavailable Care Team Providers Care Yard General Car Supervisor Name Role Phone PCP Unavailable Allergies Not [...]
--- OUTSIDE RECORDS SUMMARY | 2018-12-23 08:54 | XMS REPORT | Continuity of Care Document ---
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) USE OF SYSTEMIC STER 11/28/2017 LIDA FAIR APRN Ot Z90.49 ACQUIRED ABSENCE OF OTHER SPECIFIED PART 11/30/2017 LIDA FAIR APRN Ot O99.89 OTH DISEASES AND CONDITIONS COMPL PREG/C 11/30/2017 LIDA FAIR APRN Ot S60.454A SUPERFICIAL FOREIGN BODY OF RIGHT RING F 11/30/2017 LIDA FAIR OPTICAL BRIGHTENER MAKER HELPER Ot X58.XXXA EXPOSURE TO OTHER SPECIFIED FACTORS, INI 11/30/2017 LIDA FAIR OPTICAL BRIGHTENER MAKER HELPER Ot Z3A.36 36 WEEKS GESTATION OF 11/30/2017 LIDA FAIR OPTICAL BRIGHTENER MAKER HELPER Ot Z79.52 JAIL (CURRENT) USE OF SYSTEMIC STER 11/30/2017 LIDA FAIR APRN Ot Z90.49 ACQUIRED ABSENCE OF OTHER SPECIFIED PART 12/29/2017 KATHYA SMITH WILIAN C Ot E66.9 OBESITY, UNSPECIFIED 12/29/2017 RASHEED DO WILIAN C Ot O48.0 POST-TERM 12/29/2017 KATHYA SMITH WILIAN C Ot O69.81X0 LABOR AND DEL COMP BY CORD AROUND NECK, 12/29/2017 KATHYA DO WILIAN C Ot O70.0 FIRST DEGREE PERINEAL LACERATION DURING 12/29/2017 KATHYA SMITH WILIAN C Ot O76 ABNLT IN HEART RATE AND RHYTHM COM 12/29/2017 KATHYA SMITH WILIAN C Ot O99.213 OBESITY COMPLICATING , THIRD TR 12/29/2017 KATHYA SMITH WILIAN C Ot Z23 ENCOUNTER FOR IMMUNIZATION 12/29/2017 KATHYA SMITH WILIAN C Ot Z37.0 SINGLE LIVE 12/29/2017 KATHYA SMITH WILIAN C Ot Z3A.40 40 WEEKS GESTATION OF 12/29/2017 KATHYA SMITH WILIAN C Ot Z68.41 BODY MASS INDEX (BMI) 40.0-44.9, ADULT 12/12/2018 KATHLEEN GARCIA MD Ot D64.9 ANEMIA, UNSPECIFIED 12/12/2018 KATHLEEN GARCIA MD Ot F17.210 NICOTINE DEPENDENCE, CIGARETTES, UNCOMPL 12/12/2018 KATHLEEN GARCIA MD Ot J32.9 CHRONIC SINUSITIS, UNSPECIFIED 12/12/2018 KATHLEEN GARCIA MD Ot O99.011 ANEMIA COMPLICATING , FIRST TRI 12/12/2018 KATHLEEN GARCIA MD Ot O99.331 SMOKING (TOBACCO) COMPLICATING 12/12/2018 KATHLEEN GARCIA MD Ot O99.511 DISEASES OF THE RESP SYS COMP , 12/12/2018 KATHLEEN GARCIA MD Ot Z3A.12 12 WEEKS GESTATION OF 12/12/2018 KATHLEEN GARCIA MD Ot Z82.49 FAMILY HX OF ISCHEM HEART DIS AND OTH DI Procedures Code Description Performed By Performed On [id number] REPAIR PERINEUM SKIN, EXTERNAL APPROACH 12/27/2017 [id number] DELIVERY OF PRODUCTS OF CONCEPTION, EXTE 12/27/2017 [...] 21:25 Serum or plasma choriogonadotropin measurement (units/volume) 50805 m[iU]/mL <5 Complete urinalysis with reflex to [...] ABO+Rh group AP NRG Transfusion band number [id number] [facility] Blood group antibody screen NEGATIVE [facility] Complete blood count (CBC) with automated white [...] Status Pt. Type Provider Facility Loc./Unit Complaint [id number] 12/09/2018 08:19:00 12/09/2018 09:33:00 DIS Outpatient JOSE ROBLES, KATHLEEN Garcia [facility] ER SINUS PRESSURE/PT IS 12 WEEKS [id number] 12/26/2017 20:04:00 12/29/2017 11:40:00 DIS Inpatient WILIAN RASHEED DO [facility] LDRP INDUCTION [id number] 11/28/2017 10:40:00 11/28/2017 11:19:00 DIS Emergency LIDA FAIR APRN [facility] ER RING STUCK ON FINGER [id number] 09/21/2017 09:56:00 09/21/2017 23:59:59 CLS Outpatient WILIAN RASHEED DO [facility] RAD SURVEY [id number] 08/19/2017 10:02:00 08/19/2017 23:59:59 CLS Outpatient WILIAN RASHEED DO [facility] RAD SURVEY, [id number] 07/11/2017 20:08:00 07/11/2017 22:05:00 DIS Emergency LIDA FAIR APRN [facility] ER 16 WKS PREG/SPOTTING [id number] 05/19/2017 13:53:00 05/19/2017 23:59:59 CLS Outpatient WILIAN RASHEED DO [facility] RAD Z34.01 CARE [id number] 03/24/2015 17:25:00 03/24/2015 18:52:00 DIS Emergency DOMENICO HOYOS DO [facility] ER RASH [id number] 04/26/2017 08:06:00 Document Registration [id number] 05/13/2017 03:07:00 Document Registration [id number] 12/06/2018 13:01:45 12/06/2018 23:59:59 CLS Outpatient Shantell Gatica [id number] 05/14/2017 09:10:00 Document Registration [id number] 05/12/2017 17:08:00 Document Registration [id number] 03/21/2018 16:00:00 03/21/2018 23:59:59 [facility]
--- NOTE | 2018-12-23 11:11 | ED EENT ---
History of Present Illness General Chief Complaint: Eye Problems Stated Complaint: SWOLLEN EYE Nursing Triage Note: PT PRESENTS TO ER WITH COMPLAINT OF SWOLLEN EYE. STATES SHE HAS HAD LOTS OF DRAINAGE THIS AM. PT IS 13-14 WKS . Source: patient Exam Limitations: no limitations History of Present Illness Date Seen by Provider: Dec 23, 2018 Time Seen by Provider: 11:11 Initial Comments 28-year-old female patient presents to the emergency department for complaints of right eye lid swelling, watering, and matting in the a.m. Son has similar symptoms earlier this week. Patient denies known injury Patient is 13-14 weeks . Timing/Duration: abrupt, yesterday Location: eye (R) Prearrival Treatment: other (rubbing the eye) Modifying Factors: Worse With Other (worse with rubbing) Allergies and Home Medications Allergies Coded Allergies: No Known Drug Allergies (Unverified , 03/24/15) Home Medications Docusate Sodium 100 Mg Capsule, 100 MG PO BID Prescribed by: WILIAN RASHEED on 12/29/17902 Hydrocodone Bit/Acetaminophen 1 Tab Tab, 1-2 TAB PO Q4H PRN for PAIN-MODERATE Prescribed by: WILIAN RASHEED on 12/29/17902 Ibuprofen 600 Mg Tablet, 600 MG PO Q6H Prescribed by: WILIAN RASHEED on 12/29/17 09 Vit No.124/Iron/FA 1 Each Tablet, 1 EACH PO DAILY, (Reported) Patient Home Medication List Home Medication List Reviewed: Yes Review of Systems Review of Systems Constitutional: No chills, No fever, No malaise Eyes: See HPI; Denies Blurred Vision; Drainage (clear drainage with green matting in the AM.); Denies Foreign Body Sensation; Inflammation; Denies Pain, Denies Photophobia; Other (right eyelids swollen today.) Ears: No Symptoms Reported Nose: congestion, other (clear rhinorrhea) Mouth: no symptoms reported Throat: denies pain, denies swelling, denies neck stiffness; hoarse (x1 wk.); denies painful swallowing, denies difficulty with fluids Respiratory: cough; No dyspnea on exertion, No phlegm, No short of breath, No stridor, No wheezing Cardiovascular: no symptoms reported Gastrointestinal: no symptoms reported : Yes Skin: no symptoms reported Neurological: No Symptoms Reported All Other Systems Reviewed Negative Unless Noted: Yes (Negative excepted noted.) Past Vcwdtuq-Bsxsbz-Wkswrb Hx Past Med/Social Hx: Reviewed Nursing Past Med/Soc Hx Patient Social History Type Used: Cigarettes Former Smoker, Quit: Dec 01, 2009 Recent Foreign Travel: No Contact w/Someone Who Travel: No Recent Infectious Disease Expo: No Recent Hopitalizations: No Seasonal Allergies Seasonal Allergies: Yes Past Medical History Surgeries: Yes Appendectomy Respiratory: No Cardiac: No Neurological: No 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 Disorders: No Genitourinary: No Gastrointestinal: No Musculoskeletal: No Endocrine: No HEENT: No Cancer: No Psychosocial: No Integumentary: No Blood Disorders: Yes (anemia) Family Medical History Reviewed Nursing Family Hx Cardiovascular disease GRANDFATHER, MATERNAL Diabetes mellitus GRANDMOTHER, MATERNAL FH: Crohn's disease GRANDMOTHER, MATERNAL 19 MOTHER No Pertinent Family Hx Physical Exam Vital Signs Vital Signs - First Documented 12/23/18 09:13 Temp 98.3 Pulse 83 Resp 16 B/P (MAP) 131/76 (94) Pulse Ox 98 O2 Delivery Room Air Height, Weight, BMI Height: 5'4.00" Weight: 240lbs. 0.0oz. 108.756718yx; 41.9 BMI Method:Stated General Appearance: WD/WN, no apparent distress Eyes: right eye conjunctival inflammation (slight conjunctival inflammation), right eye other (slight swelling to the right upper and lower lids without erythema or warmth. very mild clear drainage noted. ); left eye normal inspection; bilateral eye PERRL, bilateral eye EOMI Ears: bilateral ear auricle normal, bilateral ear canal normal, bilateral ear TM normal Nose: No sinus tenderness; other ((+) sinus congestion ) Mouth/Throat: normal mouth inspection, pharynx normal Neck: non-tender, full range of motion, supple, normal inspection Cardiovascular: normal peripheral pulses, regular rate, rhythm, no murmur Respiratory: lungs clear, normal breath sounds, no respiratory distress, no accessory muscle use Neurologic/Psychiatric: alert, normal mood/affect, oriented x 3 Skin: normal color, warm/dry Progress/Results/Core Measures Results/Orders Vital Signs/I&O 12/23/18 09:13 Temp 98.3 Pulse 83 Resp 16 B/P (MAP) 131/76 (94) Pulse Ox 98 O2 Delivery Room Air Blood Pressure Mean: 94 Departure Communication (Admissions) Patient seen and evaluated. Plan for discharge to home with Ceftin ear for the upper respiratory infection. Right conjunctivitis is viral, patient given prophylactic erythromycin to prevent secondary bacterial infection. Impression Primary Impression: Conjunctivitis Qualified Codes: B30.9 - Viral conjunctivitis, unspecified Additional Impression: Upper respiratory infection, acute Disposition: HOME, SELF-CARE Condition: Improved Departure-Patient Inst. Decision time for Depature: 11:25 Referrals: WILIAN RASHEED DO (PCP/Family) Primary Care Physician Patient Instructions: Conjunctivitis (Pinkeye) (DC) Add. Discharge Instructions: All discharge instructions reviewed with patient and/or family. Voiced understanding. Medications as instructed. Tylenol extra strength over-the- counter as directed for pain if needed. Warm compresses as needed. Use a clean washcloth. Cleanse the right eye with no tears baby shampoo twice daily. Follow-up with your coupon redemption clerk for recheck if needed. Return to the emergency department for worsened symptoms or any other concerns. Scripts Erythromycin Base (Erythromycin Opthalmic Ointment) 1 Gm Oint...g. 0 OP QID for 7 Days, #1 TUBE 0 Refills 1/2 inch Prov: JOSÉ MIGUEL MARMOLEJO 12/23/18 Cefdinir (Cefdinir) 300 Mg Capsule 300 MG PO BID, #14 CAP 0 Refills Prov: JOSÉ MIGUEL MARMOLEJO 12/23/18 JOSÉ MIGUEL MARMOLEJO Dec 23, 2018 11:11
[2018-12-23] MEDS ORDERED: CEFD300C3 PO (11:28)
[2018-12-23] MEDS ORDERED: ERYT1OIN6 OP (11:28)
[2018-12-23 11:32] VITALS: BP 131/76
== END 2018-12-23 11:32 | disposition home or self-care (01) ==
LOC: EDUNIT# 08:43 → ER 08:44
DX: H10.9 Unspecified conjunctivitis (principal); J06.9 Acute upper respiratory infection, unspecified; D64.9 Anemia, unspecified; Z87.891 Personal history of nicotine dependence; Z90.49 Acquired absence of other specified parts of digestive tract; Z82.49 Family history of ischemic heart disease and other diseases of the circulatory system
CPT/HCPCS: 99282

== ENCOUNTER → 2019-01-24 | Outpatient (CLI) | payer BC ==
[~2019-01-24] MED LIST changes: +CEFD300C3 PO; +ERYT1OIN6 OP
--- NOTE | 2019-01-24 17:09 | Diagnostic Imaging Report ---
INDICATION: Anatomical survey. TECHNIQUE: Multiple real-time grayscale images were obtained over the gravid uterus. COMPARISON: None. FINDINGS: Cervix nondilated 4.7 cm in length. The anatomical survey was normal. Vega gestation is in cephalic position. The placenta posterior. There is no abruption or previa. Heart rate 142 beat per minute. Measurements correlate with an age 20 weeks 6 days. IMPRESSION: Vega viable IUP measured 20 week 6 days. No pathological finding identified. Biometrical measurements are as follows: Biparietal 4.75 cm, age 20 weeks 3 days. Head circumference 18.34 cm, age 20 weeks 5 days. Abdominal circumference 16.16 cm, age 21 weeks 2 days. Femur length 3.45 cm, age 21 weeks 0 days. Sonographic estimate age: 20 weeks 6 days. Sonographic estimated date of delivery: 06/07/2019. Estimated Weight: 393 gm (+/- 57 gm). LMP percentile: 98%. heart rate: 142 beats per minute. number: 1 of 1. Dictated on workstation # [id number]
== END ==
LOC: RAD 15:39
PROVIDERS: ATTEND Obstetrics & Gynecology
DX: Z36.89 Encounter for other specified antenatal screening (principal); Z3A.20 20 weeks gestation of pregnancy
CPT/HCPCS: 76805

== ENCOUNTER 2019-06-10 19:58 | Inpatient (IN) | payer BC ==
[~2019-06-10] VITALS: Ht 162.6 cm; Wt 118.0 kg
--- NOTE | 2019-06-10 19:57 | NUR ---
HÉCTOR KAUR presented to unit via ambulation from home, accompanied by vianca for INDUCTION. HÉCTOR KAUR weighed, gowned, voided, and to bed. EFHM and TOCO applied, VS taken. HÉCTOR KAUR oriented to bed controls, call light, TV, heat, and A/C controls.
--- OUTSIDE RECORDS SUMMARY | 2019-06-10 20:04 | XMS REPORT | Encounter Summary ---
Author Author [facility] Organization [facility] Address Unknown Phone Unavailable Care Team Providers Care Spinner Iron Name Role Phone PCP Unavailable Encounter Details Care Team Description Date Type Department Emergency, PhysicianMD 07/19/2012 [facility] Encounter [address], [place] [id number] Social History Date Tobacco Use Types Packs/Day Years Used Never Assessed Sex Assigned at Date Recorded Not on file Industry Job Start Date Occupation Not on file Not on file Not on file Travel End Travel History Travel Start No recent travel history available. documented as of this encounter Plan of Treatment Not on filedocumented as of this encounter Procedures Comments Procedure Name Priority Date/Time Associated Diagnosis URINE NITRITE Routine 07/19/2012 8:15 PM CDT URINALYSIS MICROSCOPIC Routine 07/19/2012 ONLY 8:15 PM CDT URINE TEST Routine 07/19/2012 8:15 PM CDT URINALYSIS REFLEX Routine 07/19/2012 8:15 PM CDT URINALYSIS (INCLUDES Routine 07/19/2012 MICROSCOPIC REVIEW, IF 8:15 PM CDT INDICATED) CULTURE, URINE Routine 07/19/2012 8:15 PM CDT documented in this encounter Results * Culture, Urine (07/19/2012 8:15 PM CDT) Specimen [facility] [employer] Specimen/Source: URINE/URINE Collected: 07/19/2012 20:15 Status: FinalLast Updated: 07/21/2012 08:21 Culture result (Final) Three or more bacterial species isolated from urine indicates colonization or fecal contamination. Submission of a repeat specimen is suggested. Performing Organization Address City/State/Zipcode Phone Number [facility] [address] [place] [address] [facility] * Urine Nitrite (07/19/2012 8:15 PM CDT) Nitrite Urine Negative Negative [facility] Specimen Urine Performing Organization Address [facility] Phone Number [facility] [address] [place] [address] [facility] * Urinalysis (07/19/2012 8:15 PM CDT) Appearance, Yellow [facility] Urine Specific 1.025 1.001 - 1.030 [facility] [place], UA PH Urine 6.0 5.0 - 8.0 [facility] Hemoglobin Trace (A) Negative [facility] Urine Leukocyte Negative Negative [facility] Esterase Bilirubin Urine Negative Negative [facility] Glucose Urine Negative Negative MG/DL [facility] Ketones Urine Negative Negative MG/DL [facility] Protein Urine Negative Negative MG/DL [facility] Qual Urobilinogen Negative Negative EU/DL [facility] Urine Specimen Urine Performing Organization [facility] Phone Number [address] [place] [address] [facility] * Urine Test (07/19/2012 8:15 PM CDT) UCG Urine Negative Negative [facility] Specimen Urine Performing Organization [facility] Phone Number [facility] [address] [place] [address] [facility] * Urinalysis Microscopic Only (07/19/2012 8:15 PM CDT) MICROSCOPIC Done [facility] Microscopic WBC 6 - 10 (A) 1 - 5 [facility] Urine Bacteria Small (A) Absent [facility] Mucus Moderate (A) Absent [facility] Epithelial Absent Absent [facility] Cells Hyaline Cast Absent Absent [facility] Microscopic RBC 6 - 10 (A) 1 - 5 [facility] Urine Specimen Urine Performing Organization Address [facility] Phone Number [facility] [address] [place] [address] [place] * Urinalysis Reflex (07/19/2012 8:15 PM CDT) UA Reflex COMPLETE [facility] Comment: The value COMPLETE was changed by [id number] on 07/19/2012 20:24 from: Complete Culture Ordered Specimen Urine Performing Organization [facility] Phone Number [facility] [address] [place] [address] [facility] documented in this encounter Visit Diagnoses Not on filedocumented in this encounter
--- OUTSIDE RECORDS SUMMARY | 2019-06-10 20:04 | XMS REPORT | Encounter Summary ---
Author Author [facility] Organization [facility] Address Unknown Phone Unavailable Care Team Providers Care Customer Service Security Officer Name Role Phone PCP Unavailable Encounter Details Care Team Description Date Type Department Chester Leong MD [address] [place] [address] [phone] Emergency, Physician, Contact dermatitis and other eczema, due to unspecified cause 10/08/2011 [facility] Encounter [address] [place] [address] Social History Date Tobacco Use Types Packs/Day Years Used Never Assessed Sex Assigned at Date Recorded Not on file Industry Job Start Date Occupation Not on file Not on file Not on file Travel End Travel History Travel Start No recent travel history available. documented as of this encounter Plan of Treatment Not on filedocumented as of this encounter Visit Diagnoses Diagnosis Contact dermatitis and other eczema, due to unspecified cause documented in this encounter
--- OUTSIDE RECORDS SUMMARY | 2019-06-10 20:04 | XMS REPORT | Encounter Summary ---
Author Author [facility] Organization [facility] Address Unknown Phone Unavailable Care Team Providers Care Project Management Instructor Name Role Phone PCP Unavailable Encounter Details Care Team Description Date Type Department Gt Roberts MD [address] [place] [address] [phone] Fever, Unspecified 07/07/2009 [facility] [address] [place] [address] Social History Date Tobacco Use Types Packs/Day [...] Priority Date/Time Associated Diagnosis URINE NITRITE Routine 07/07/2009 4:10 PM CDT URINALYSIS AND Routine 07/07/2009 MICROSCOPIC 4:10 PM CDT URINALYSIS (INCLUDES Routine 07/07/2009 MICROSCOPIC REVIEW, IF 4:10 PM CDT INDICATED) DIFFERENTIAL Routine 07/07/2009 3:15 PM CDT CBC AND DIFF (MANUAL DIFF Routine 07/07/2009 IF NECESSARY) 3:15 PM CDT documented in this encounter Results * Urinalysis (07/07/2009 4:10 PM CDT) Appearance, YELLOW [facility] Urine Specific 1.025 <1.030 [facility] [place], UA Hemoglobin TRACE (A) NEGATIVE [facility] Urine Ketones Urine NEGATIVE NEGATIVE [facility] Glucose Urine NEGATIVE NEGATIVE [facility] Protein Urine NEGATIVE NEGATIVE [facility] Qual PH Urine 6.0 5.0 - 8.0 [facility] Leukocyte NEGATIVE NEGATIVE [facility] Esterase Bilirubin Urine NEGATIVE NEGATIVE [facility] Urobilinogen NEGATIVE NEGATIVE [facility] Urine Specimen Performing Organization Address [facility] Phone Number [address] [place] [address] [place] * Urine Nitrite (07/07/2009 4:10 PM CDT) Nitrite Urine NEGATIVE NEGATIVE [facility] Specimen Performing Organization Address [facility] Phone Number [address] [place] [address] [facility] * Urinalysis and Microscopic (07/07/2009 4:10 PM CDT) Microscopic RBC 1-5 <6 [facility] Urine MICROSCOPIC DONE [facility] Specimen Performing Organization Address [facility] Phone Number [address] [place] [address] [facility] * CBC and Diff (manual diff if necessary) (07/07/2009 3:15 PM CDT) WBC 7.1 4.0 - 11.0 TH/UL [facility] RBC 4.78 4.00 - 5.00 MIL/UL [facility] Hemoglobin 12.5 12.0 - 15.0 G/DL [facility] Hematocrit 38 36 - 45 % [facility] MCV 79 (L) 80 - 99 FL [facility] MCH 26 (L) 27 - 34 PG [facility] MCHC 33 32 - 36 % [facility] RDW 13.3 <14.5 % [facility] Platelet Count 216 140 - 400 TH/UL [facility] MPV 11.2 9.4 - 12.3 FL [facility] Specimen Performing Organization Address [facility] Phone Number [address] [place] [address] [place] * DIFFERENTIAL (07/07/2009 3:15 PM CDT) % Neutrophils 81 (H) 45 - 78 % [facility] %Lymphocytes 10 (L) 15 - 47 % [facility] %Monocytes 9 0 - 12 % [facility] %Eosinophils 0 0 - 7 % [facility] %Basophils 0 0 - 2 % [facility] # Granulocytes 5.8 1.7 - 6.8 TH/UL [facility] # Lymphocytes 0.7 (L) 1.0 - 3.3 TH/UL [facility] # Monocytes 0.6 0.2 - 0.9 TH/UL [facility] # Eosinophils 0.0 0.0 - 0.4 TH/UL [facility] # Basophils 0.0 0.0 - 0.2 TH/UL [facility] Specimen Performing Organization Address City/State/Zipcode Phone Number [facility] [address] [place] [address] [facility] documented in this encounter Visit Diagnoses Diagnosis Fever, unspecified documented in this encounter
--- OUTSIDE RECORDS SUMMARY | 2019-06-10 20:04 | XMS REPORT | Encounter Summary ---
Author Author [facility] Organization [facility] Address Unknown Phone Unavailable Care Team Providers Care Inside Sales Lead Name Role Phone PCP Unavailable Encounter Details Care Team Description Date Type Department Alexander Ellison MD NO FORWARDING ADDRESS Acute Appendicitis without Mention of Peritonitis 06/26/2009 [facility] [address] [place], [place] [id number] Social History Date Tobacco Use Types Packs/Day Years Used Never Assessed Sex Assigned at Date Recorded Not on file Industry Job Start Date Occupation Not on file Not on file Not on file Travel End Travel History Travel Start No recent travel history available. documented as of this encounter Miscellaneous Notes * Operative Note - Alexander Ellison MD - 12/29/2013 7:42 AM LITIGATION LEGAL ASSISTANT REPORT Name: HÉCTOR KAUR MRN/Unit #: [id number] Attending Physician: SREEKANTH LIANG Date of : 1990 DATE OF OPERATION: 06/26/2009 PREOPERATIVE DIAGNOSIS: Acute appendicitis. POSTOPERATIVE DIAGNOSIS: Acute appendicitis. OPERATION PERFORMED: Laparoscopic appendectomy. ANESTHESIA: General. SURGEON: Alexander Ellison MD. COMPLICATIONS: None. FINDINGS: The patient had acute suppurative appendicitis. DESCRIPTION OF THE OPERATION: In the supine position, the patient's abdomen was prepared and draped in the usual sterile fashion. A vertical infraumbilical incision was made. This was carried down through the fascia. A Alexander trocar was inserted. The abdomen was filled with CO2. The patient was placed in Trendelenburg position. A laparoscope with camera attached was then inserted. The remainder of the procedure was done on the video screen. A 5-mm trocar was placed in the suprapubic region and grasping forces were inserted. The appendix was visualized, freed up, grasped, and retracted anteriorly. Another 5-mm trocar was placed between the umbilicus and pubis and the harmonic scalpel was inserted and this was used to clear off the mesoappendix down to the base of the appendix. Then an Endo CADENCE was used to come across the base of the appendix. The appendix was then placed in an EndoCatch bag and delivered out of the abdomen via the umbilical port. The pelvis and right lower quadrant were irrigated cleanly. All saline and CO2 was then removed from around the appendix area and pelvis and then all trocars were removed. The fascia in the umbilical area was closed with 0 Nurolon. Suture of 4-0 Vicryl was used to approximate the skin edges. All wounds were injected with 0.5% Marcaine plain and then Steri-Strips and dressings were applied. The patient tolerated the procedure well. Alexander Ellison MD Dictated By: T:06/26/2009 09:20:53 cc: GATION LEGAL ASSISTANT documented in this encounter Plan of Treatment Not on filedocumented as of this encounter Procedures Comments Procedure Name Priority Date/Time Associated Diagnosis [place] HISTOLOGY Routine 06/26/2009 9:52 AM CDT DIFFERENTIAL Routine 06/26/2009 3:31 AM CDT LIPASE Routine 06/26/2009 3:31 AM CDT COMPREHENSIVE METABOLIC Routine 06/26/2009 PANEL 3:31 AM CDT CBC AND DIFF (MANUAL DIFF Routine 06/26/2009 IF NECESSARY) 3:[address] ABD PELVIS Routine 06/26/2009 3:30 AM CDT URINE NITRITE Routine 06/26/2009 3:20 AM CDT URINE TEST Routine 06/26/2009 3:20 AM CDT URINALYSIS AND Routine 06/26/2009 MICROSCOPIC 3:20 AM CDT URINALYSIS (INCLUDES Routine 06/26/2009 MICROSCOPIC REVIEW, IF 3:20 AM CDT INDICATED) CULTURE, URINE Routine 06/26/2009 3:20 AM CDT documented in this encounter Results * Pathology (06/26/2009 9:52 AM CDT) Specimen Narrative Performed At REPORT [facility] PATIENT: HÉCTOR KAUR SEX / : F 1990 (Age: 19) VISIT: [id number] SUBMITTING PHYSICIAN:Alexander Ellison M.D. CLIENT:[facility] COLLECTED: 06/26/2009 REPORTED:06/27/2009 SURGICAL PATHOLOGY REPORT COPATH SPECIMEN: Appendix FINAL PATHOLOGIC DIAGNOSIS: Appendix - Acute appendicitis and periappendicitis. Signed Electronically by: Foreign Anglin M.D.06/27/2009 CLINICAL DATA: Acute appendicitis. GROSS DESCRIPTION: Received in formalin in a properly labeled container is a vermiform appendix which measures 5.5 cm in length and 0.8 cm in outside diameter.The serosal surface is pink-bedolla with evidence of exudate.Sections reveal a 0.3 cm dilated lumen filled with red-brown fecal material.Buyer Planner sections are submitted in cassettes 1-2. [place]:td Lawtons: [facility], [address] [place] [address] Performing Laboratory Location: [facility], Dept of Pathology, [facility] [place] [address] END OF REPORT Performing Organization Address City/State/Zipcode Phone Number [facility] [address] [place] [address] [facility] * CBC and Diff (manual diff if necessary) (06/26/2009 3:31 AM CDT) WBC 16.6 (H) 4.0 - 11.0 TH/UL [facility] RBC 4.74 4.00 - 5.00 MIL/UL [facility] Hemoglobin 12.7 12.0 - 15.0 G/DL [facility] Hematocrit 37 36 - 45 % [facility] MCV 79 (L) 80 - 99 FL [facility] MCH 27 27 - 34 PG [facility] MCHC 34 32 - 36 % [facility] RDW 13.2 <14.5 % [facility] Platelet Count 194 140 - 400 TH/UL [facility] MPV 11.5 9.4 - 12.3 FL [facility] Specimen Performing Organization Address [facility] Phone Number R [address] [place] [address] [facility] * DIFFERENTIAL (06/26/2009 3:31 AM CDT) % Neutrophils 82 (H) 45 - 78 % [facility] %Lymphocytes 10 (L) 15 - 47 % [facility] %Monocytes 8 0 - 12 % [facility] %Eosinophils 0 0 - 7 % [facility] %Basophils 0 0 - 2 % [facility] # Granulocytes 13.6 (H) 1.7 - 6.8 TH/UL [facility] # Lymphocytes 1.7 1.0 - 3.3 TH/UL [facility] # Monocytes 1.3 (H) 0.2 - 0.9 TH/UL [facility] # Eosinophils 0.0 0.0 - 0.4 TH/UL [facility] # Basophils 0.0 0.0 - 0.2 TH/UL [facility] Specimen Performing Organization Address [facility] Phone Number R [address] [place] [address] [facility] * Comprehensive Metabolic Panel (06/26/2009 3:31 AM CDT) Albumin 4.1 3.5 - 5.0 G/DL [facility] Aspartate 17 15 - 41 IU/L [facility] Aminotransferas e Alanine 12 (L) 14 - 63 IU/L [facility] Aminotransferas e Bilirubin Total 0.6 0.3 - 1.4 MG/DL [facility] Protein Total 7.5 6.0 - 8.0 G/DL [facility] Serum Calcium 9.4 8.8 - 10.5 MG/DL [facility] Creatinine 0.5 0.4 - 1.1 MG/DL [facility] Glucose 103 (H) 65 - 100 MG/DL [facility] Alkaline 95 (L) 100 - 500 IU/L [facility] Phosphatase Sodium 138 134 - 144 MEQ/L [facility] Potassium 3.5 3.5 - 5.1 MEQ/L [facility] Chloride 105 101 - 111 MEQ/L [facility] Carbon Dioxide 26 23 - 32 MEQ/L [facility] Anion Gap 7 3 - 15 [facility] Blood Urea 9 8 - 26 MG/DL [facility] Nitrogen Specimen Performing Organization Address [facility] Phone Number [facility] [address] [place] [address] [facility] * Lipase (06/26/2009 3:31 AM CDT) Lipase 17 (L) 18 - 51 U/L [facility] Specimen Performing Organization Address [facility] Phone Number [facility] [address] [place] [address] [facility] * CT Abd Pelvis (06/26/2009 3:30 AM CDT) Specimen Narrative Performed At [facility] Patient:HÉCTOR KAUR [facility] Rec#:[id number] Sex:F :1990 Mason#: [id number] Location: Check-in#: [id number] Procedure Requested: [id number] CT ABD PELVIS Reason For Exam: ABD PAIN Exam Ordered:06/26/2009316 Exam Date/Time:06/26/2009339 Check-in Date/Time:06/26/2009316 Attendin SREEKANTH LIANG "" Requestin SREEKANTH LIANG "" Referring: , Primary Care:, These images and this report have been reviewed and edited by the Staff Radiologist. CT ABD PELVIS WITH CONTRAST Indication:Pain Technique:CT of the abdomen and pelvis was obtained following administration of intravenous contrast. No oral contrast was given. No adverse reaction was noted. Comparison: No prior. Findings: The visualized lower lung is clear. The heart is normal in size without pericardial effusion. Abdomen: The liver enhances homogeneously without focal lesions. Portal vein is patent. Gallbladder is normal in size without radio-opaque stones. The spleen is unremarkable. The pancreas enhances homogeneously without pancreatic duct dilatation. The adrenal glands are unremarkable. The kidneys enhance symmetrically without hydronephrosis or hydroureter. There is no retroperitoneal mass or adenopathy. There is no mesenteric mass or ascites. The un-opacified gastrointestinal tract demonstrates diffuse thickening of the appendix measuring up to 9.4 mm in diameter with periappendiceal inflammatory changes consistent with acute appendicitis. There is no abscess or free air. There are no abnormally dilated bowel loops. There is no diverticulosis or diverticulitis. Pelvis: The bladder is well distended without wall thickening.The uterus and ovaries are normal in size for patient's age.There is no pelvic mass or adenopathy. There are no osseous lytic or blastic lesions. Impression: Acute nonperforated appendicitis. No abscess or free air. Signed (Authenticated, Released) Date-Time: 06/26/2009 0659 [employer]- NICHOLAS BROWN, Staff Radiologist Dictated By- NICHOLAS BROWN, Staff Radiologist Staff Physician- NICHOLAS BROWN, Staff Radiologist Authenticated By- NICHOLAS BROWN, Staff Radiologist Procedure Note Interface, Rad Conversion - 12/30/2013 5:48 AM LITIGATION LEGAL ASSISTANT REPORT Patient: HÉCTOR KAUR [facility] Rec#: [id number] Sex: F : 1990 Mason#: [id number] Location: Check-in#: [id number] Procedure Requested: [id number] CT ABD PELVIS Reason For Exam: ABD PAIN Exam Ordered: 06/26/2009316 Exam Date/Time: 06/26/2009339 Check-in Date/Time: 06/26/2009316 Attendin SREEKANTH LIANG "" Requestin SREEKANTH LIANG "" Referring: , Primary Care: , These images and this report have been reviewed and edited by the Staff Radiologist. CT ABD PELVIS WITH CONTRAST Indication: Pain Technique: CT of the abdomen and pelvis was obtained following administration of intravenous contrast. No oral contrast was given. No adverse reaction was noted. Comparison: No prior. Findings: The visualized lower lung is clear. The heart is normal in size without pericardial effusion. Abdomen: The liver enhances homogeneously without focal lesions. Portal vein is patent. Gallbladder is normal in size without radio-opaque stones. The spleen is unremarkable. The pancreas enhances homogeneously without pancreatic duct dilatation. The adrenal glands are unremarkable. The kidneys enhance symmetrically without hydronephrosis or hydroureter. There is no retroperitoneal mass or adenopathy. There is no mesenteric mass or ascites. The un-opacified gastrointestinal tract demonstrates diffuse thickening of the appendix measuring up to 9.4 mm in diameter with periappendiceal inflammatory changes consistent with acute appendicitis. There is no abscess or free air. There are no abnormally dilated bowel loops. There is no diverticulosis or diverticulitis. Pelvis: The bladder is well distended without wall thickening. The uterus and ovaries are normal in size for patient's age. There is no pelvic mass or adenopathy. There are no osseous lytic or blastic lesions. Impression: Acute nonperforated appendicitis. No abscess or free air. Signed (Authenticated, Released) Date-Time: 06/26/2009 0659 [employer]- NICHOLAS RUFFIN M.D., Staff Radiologist Dictated By- NICHOLAS RUFFIN M.D., Staff Radiologist Staff Physician- NICHOLAS RUFFIN M.D., Staff Radiologist Authenticated By- NICHOLAS RUFFIN M.D., Staff Radiologist Performing Organization Address [facility] Phone Number [facility] * Urine Test (06/26/2009 3:20 AM CDT) UCG Urine NEGATIVE NEGATIVE [facility] Specimen Performing Organization Address [facility] Phone Number [facility] [address] [place] [address] [facility] * Urine Nitrite (06/26/2009 3:20 AM CDT) Nitrite Urine NEGATIVE NEGATIVE [facility] Specimen Performing Organization Address [facility] Phone Number [facility] [address] [place] [address] [facility] * Urinalysis (06/26/2009 3:20 AM CDT) Appearance, YELLOW [facility] Urine Specific >=1.030 <1.030 [facility] [place], UA Hemoglobin TRACE (A) NEGATIVE [facility] Urine Ketones Urine TRACE (A) NEGATIVE [facility] Glucose Urine NEGATIVE NEGATIVE [facility] Protein Urine NEGATIVE NEGATIVE [facility] Qual PH Urine 6.0 5.0 - 8.0 [facility] Leukocyte SEE WBC NEGATIVE [facility] Esterase Bilirubin Urine SMALL (A) NEGATIVE [facility] Urobilinogen NEGATIVE NEGATIVE [facility] Urine Specimen Performing Organization Address [facility] Phone Number [facility] [address] [place] [address] [facility] * Urinalysis and Microscopic (06/26/2009 3:20 AM CDT) Microscopic RBC 1-5 <6 [facility] Urine Microscopic WBC 1-5 <6 [facility] Urine Epithelial SMALL (A) NEGATIVE [facility] Cells Mucus LARGE (A) NEGATIVE [facility] Bacteria SMALL (A) [facility] MICROSCOPIC DONE [facility] Granular Cast SMALL (A) [facility] Specimen Performing Organization Address [facility] Phone Number [facility] [address] [place] [address] [facility] * Culture, Urine (06/26/2009 3:20 AM CDT) Specimen CVU Narrative Performed At REPORT [facility] [id number] [facility] BACTERIOLOGY PROCEDURE: URINE CULTURECOLLECTED: 06/26/09319 SOURCE: CLEAN VOIDED URINERECEIVED: 06/26/09516 CLEAN VOIDED URINE STARTED:06/26/09516 FINAL REPORT FINAL REPORT 06/27/09708 Three or more bacterial isolates were isolated from urine indicating colonization or fecal contamination. Submission of another specimen is suggested. Performing Organization Address [facility] Phone Number [facility] [address] [place] [address] [facility] documented in this encounter Visit Diagnoses Diagnosis Acute appendicitis without mention of peritonitis documented in this encounter
--- OUTSIDE RECORDS SUMMARY | 2019-06-10 20:04 | XMS REPORT | Clinical Summary ---
Author Author [facility] Organization [facility] Address Unknown Phone Unavailable Care Team Providers Care Prototype Engineer Name Role Phone PCP Unavailable Allergies Not on File Medications Not on file Active Problems Not on file Social History Date Tobacco Use Types Packs/Day Years Used Never Assessed Sex Assigned at Date Recorded Not on file Industry Job Start Date Occupation Not on file Not on file Not on file Travel End Travel History Travel Start No recent travel history available. Last Filed Vital Signs Not on file Plan of Treatment Not on file Results Not on filefrom Last 3 Months
--- OUTSIDE RECORDS SUMMARY | 2019-06-10 20:05 | XMS REPORT | Continuity of Care Document ---
Author Organization Unknown Address Unknown Phone Unavailable Allergies Active Description Code Type Severity Reaction Onset Reported/Identified Relationship to Patient Clinical Status Yes No Known Drug Allergies [id number] Drug Allergy Unknown N/A 03/24/2015 Medications There [...] SPOTTING COMPLICATING , SECOND 07/11/2017 LIDA FAIR ONSITE HEALTH COACH Ot Z3A.16 16 WEEKS GESTATION OF 07/11/2017 LIDA FAIR APRN Ot Z90.49 ACQUIRED ABSENCE OF OTHER SPECIFIED PART 07/13/2017 LIDA FAIR APRN Ot N92.0 EXCESSIVE AND FREQUENT MENSTRUATION WITH 07/13/2017 LIDA FAIR APRN Ot O26.852 SPOTTING COMPLICATING , SECOND 07/13/2017 LIDA FAIR ONSITE HEALTH COACH Ot Z3A.16 16 WEEKS GESTATION OF 07/13/2017 LIDA FAIR ONSITE HEALTH COACH Ot Z90.49 ACQUIRED ABSENCE OF OTHER SPECIFIED [...] OF 11/28/2017 LIDA FAIR APRN Ot Z79.52 RECREATION CENTER DIRECTOR (CURRENT) USE OF SYSTEMIC STER 11/28/2017 LIDA FAIR APRN Ot Z90.49 ACQUIRED ABSENCE OF OTHER SPECIFIED PART 11/30/2017 LIDA FAIR APRN Ot O99.89 OTH DISEASES AND CONDITIONS COMPL PREG/C 11/30/2017 LIDA FAIR APRN Ot S60.454A SUPERFICIAL FOREIGN BODY OF RIGHT RING F 11/30/2017 LIDA FAIR APRN Ot X58.XXXA EXPOSURE TO OTHER SPECIFIED FACTORS, INI 11/30/2017 LIDA FAIR ONSITE HEALTH COACH Ot Z3A.36 36 WEEKS GESTATION OF 11/30/2017 LIDA FAIR ONSITE HEALTH COACH Ot Z79.52 SENIOR LIVING (CURRENT) USE OF SYSTEMIC STER 11/30/2017 LIDA FAIR ONSITE HEALTH COACH Ot Z90.49 ACQUIRED ABSENCE OF OTHER SPECIFIED PART 12/29/2017 KATHYA SMITH WILIAN C Ot E66.9 OBESITY, UNSPECIFIED 12/29/2017 KATHYA SMITH WILIAN C Ot O48.0 POST-TERM 12/29/2017 RASHEED WILIAN C Ot O69.81X0 LABOR AND DEL COMP BY CORD AROUND NECK, 12/29/2017 RASHEED WILIAN C Ot O70.0 FIRST DEGREE PERINEAL LACERATION DURING 12/29/2017 RASHEED WILIAN C Ot O76 ABNLT IN HEART [...] Z68.41 BODY MASS INDEX (BMI) 40.0-44.9, ADULT 12/09/2018 JOSE ROBLES, KATHLEEN Garcia Ot D64.9 ANEMIA, UNSPECIFIED 12/09/2018 KATHLEEN GARCIA MD Ot F17.210 NICOTINE DEPENDENCE, CIGARETTES, UNCOMPL 12/09/2018 KATHLEEN GARCIA MD, Ot J32.9 CHRONIC SINUSITIS, UNSPECIFIED 12/09/2018 KATHLEEN GARCIA MD Ot O99.011 ANEMIA COMPLICATING , FIRST TRI 12/09/2018 KATHLEEN GARCIA MD Ot O99.331 SMOKING (TOBACCO) COMPLICATING 12/09/2018 KATHLEEN GARCIA MD Ot O99.511 DISEASES OF THE RESP SYS COMP , 12/09/2018 KATHLEEN GARCIA MD Ot Z3A.12 12 WEEKS GESTATION OF 12/09/2018 KATHLEEN GARCIA MD Ot Z82.49 FAMILY HX OF ISCHEM HEART DIS AND OTH DI 12/12/2018 KATHLEEN GARCIA MD Ot D64.9 ANEMIA, UNSPECIFIED 12/12/2018 JOSE ROBLES, KATHLEEN Garcia Ot F17.210 NICOTINE DEPENDENCE, CIGARETTES, UNCOMPL 12/12/2018 JOSE ROBLES, KATHLEEN Garcia Ot J32.9 CHRONIC SINUSITIS, UNSPECIFIED 12/12/2018 JOSE ROBLES, KATHLEEN Garcia Ot O99.011 ANEMIA COMPLICATING , FIRST TRI 12/12/2018 JOSE ROBLES, KATHLEEN Garcia Ot O99.331 SMOKING (TOBACCO) COMPLICATING 12/12/2018 KATHLEEN GARCIA MD Ot O99.511 DISEASES OF THE RESP SYS COMP , 12/12/2018 KATHLEEN GARCIA MD Ot Z3A.12 12 WEEKS GESTATION OF 12/12/2018 KATHLEEN GARCIA MD Ot Z82.49 FAMILY HX OF ISCHEM HEART DIS AND OTH DI 12/23/2018 JOSÉ MIGUEL GUERRERO Ot D64.9 ANEMIA, UNSPECIFIED 12/23/2018 JOSÉ MIGUEL GUERRERO Ot H10.9 UNSPECIFIED CONJUNCTIVITIS 12/23/2018 JOSÉ MIGUEL GUERRERO Ot H57.89 OTHER SPECIFIED DISORDERS OF EYE AND ADN 12/23/2018 JOSÉ MIGUEL GUERRERO Ot J06.9 ACUTE UPPER RESPIRATORY INFECTION, UNSPE 12/23/2018 JOSÉ MIGUEL GUERRERO Ot Z82.49 FAMILY HX OF ISCHEM HEART DIS AND OTH DI 12/23/2018 JOSÉ MIGUEL GUERRERO Ot Z87.891 PERSONAL HISTORY OF NICOTINE DEPENDENCE 12/23/2018 JOSÉ MIGUEL GUERRERO Ot Z90.49 ACQUIRED ABSENCE OF OTHER SPECIFIED PART 12/26/2018 JOSÉ MIGUEL GUERRERO Ot D64.9 ANEMIA, UNSPECIFIED 12/26/2018 JOSÉ MIGUEL GUERRERO Ot H10.9 UNSPECIFIED CONJUNCTIVITIS 12/26/2018 JOSÉ MIGUEL GUERRERO Ot H57.89 OTHER SPECIFIED DISORDERS OF EYE AND ADN 12/26/2018 JOSÉ MIGUEL GUERRERO Ot J06.9 ACUTE UPPER RESPIRATORY INFECTION, UNSPE 12/26/2018 JOSÉ MIGUEL GUERRERO Ot Z82.49 FAMILY HX OF ISCHEM HEART DIS AND OTH DI 12/26/2018 JOSÉ MIGUEL GUERRERO Ot Z87.891 PERSONAL HISTORY OF NICOTINE DEPENDENCE 12/26/2018 JOSÉ MIGUEL GUERRERO Ot Z90.49 ACQUIRED ABSENCE OF OTHER SPECIFIED PART 02/09/2019 KATHYA SMITH WILIAN Erwin Ot Z36.89 ENCOUNTER FOR OTHER SPECIFIED 02/09/2019 RASHEEDWILIAN Salazar DO Ot Z3A.20 20 WEEKS GESTATION OF Procedures Code Description Performed By Performed On [id number] REPAIR PERINEUM SKIN, EXTERNAL APPROACH 12/27/2017 [id number] DELIVERY OF PRODUCTS OF CONCEPTION, EXTE 12/27/2017 [...] gravity of urine by test strip 1.015 1.016-1.022 Urine protein assay by test strip, semi-quantitative [...] sediment leukocyte count by microscopy (number/high power field) [HPF] NRG Bacteria detection in urine sediment [...] Automated erythrocyte mean corpuscular hemoglobin concentration measurement (mass/volume) 34 g/dL 32-36 Automated erythrocyte distribution width ratio 14.3 % 10.0- 14.5 Automated blood platelet count (count/volume) 198 10*3/uL [...] Blood monocytes automated count (number/volume) 0.6 10*3 0.0- 1.0 Automated eosinophil count 0.1 10*3/uL 0.0-0.3 Automated blood basophil count (count/volume) 0.0 10*3/uL 0.0-0.1 ABO+Rh group - 07/11/17 21:25 ABO+Rh group AP NRG Serum or plasma choriogonadotropin measurement (units/volume) - 07/11/17 21:25 Serum or plasma choriogonadotropin measurement (units/volume) 99364 m[iU]/mL <5 Complete urinalysis with reflex to culture - 12/26/17 20:00 Urine color determination YELLOW NRG Urine clarity determination CLEAR NRG Urine pH measurement by test strip 6 5-9 Specific gravity of urine by test strip 1.015 1.016-1.022 Urine protein assay by test strip, semi-quantitative [...] sediment leukocyte count by microscopy (number/high power field) [HPF] NRG Bacteria detection in urine sediment [...] Automated erythrocyte mean corpuscular hemoglobin concentration measurement (mass/volume) 34 g/dL 32-36 Automated erythrocyte distribution width ratio 14.9 % 10.0- 14.5 Automated blood platelet count (count/volume) 177 10*3/uL [...] Blood monocytes automated count (number/volume) 0.7 10*3 0.0- 1.0 Automated eosinophil count 0.1 10*3/uL 0.0-0.3 Automated blood basophil count (count/volume) 0.0 10*3/uL 0.0-0.1 Blood type T Indirect antibody screen panel - 12/26/17 21:15 ABO+Rh group AP NRG Transfusion band number [id number] NR Blood group antibody screen NEGATIVE NRG Complete [...] Automated erythrocyte mean corpuscular hemoglobin concentration measurement (mass/volume) 34 g/dL 32-36 Automated erythrocyte distribution width ratio 14.9 % 10.0- 14.5 Automated blood platelet count (count/volume) 158 10*3/uL [...] Blood monocytes automated count (number/volume) 0.9 10*3 0.0- 1.0 Automated eosinophil count 0.1 10*3/uL 0.0-0.3 Automated blood basophil count (count/volume) 0.0 10*3/uL 0.0-0.1 Encounters ACCT No. Visit Date/Time Discharge Status Pt. Type Provider Facility Loc./Unit Complaint [id number] 2019 15:39:00 2019 23:59:59 CLS Outpatient WILIAN RASHEED DO [facility] RAD 18 WEEKS GESTATION OF [id number] 12/23/2018 08:44:00 12/23/2018 11:32:00 DIS Emergency JOSÉ MIGUEL GUERRERO [facility] ER SWOLLEN EYE [id number] 12/09/2018 08:19:00 12/09/2018 09:33:00 DIS Emergency KATHLEEN GARCIA MD [facility] ER SINUS PRESSURE/PT IS 12 WEEKS [id number] 12/26/2017 20:04:00 12/29/2017 11:40:00 DIS Inpatient WILIAN RASHEED DO [facility] LDRP INDUCTION [id number] 11/28/2017 10:40:00 11/28/2017 11:19:00 DIS Emergency LIDA FAIR APRN [facility] ER RING STUCK ON FINGER [id number] 09/21/2017 09:56:00 09/21/2017 23:59:59 CLS Outpatient WILIAN RASHEED DO [facility] RAD SURVEY [id number] 08/19/2017 10:02:00 08/19/2017 23:59:59 CLS Outpatient WILIAN RASHEED DO [facility] RAD SURVEY, [id number] 07/11/2017 20:08:00 07/11/2017 22:05:00 DIS Emergency LIDA FAIR APRN [facility] ER 16 WKS PREG/SPOTTING [id number] 05/19/2017 13:53:00 05/19/2017 23:59:59 CLS Outpatient WILIAN RASHEED DO [facility] RAD Z34.01 CARE [id number] 03/24/2015 17:25:00 03/24/2015 18:52:00 DIS Emergency DOMENICO HOYOS DO [facility] ER RASH [id number] 04/26/2017 08:06:00 Document Registration [id number] 05/13/2017 03:07:00 Document Registration [id number] 12/06/2018 13:01:45 12/06/2018 23:59:59 CLS Outpatient Shantell Gatica [id number] 05/14/2017 09:10:00 Document Registration [id number] 05/12/2017 17:08:00 Document Registration [id number] 03/21/2018 16:00:00 03/21/2018 23:59:59 CLS [facility]
[2019-06-10 20:10] VITALS: BP 133/79
[2019-06-10] MEDS ORDERED: D5 LR IV SOLUTION 1,000 ML IV ONE (20:14)
--- NOTE | 2019-06-10 20:25 | NUR ---
RN notified Dr. manning of patient arrival and SVE. Orders received to follow oral cytotec protocol and give 5mg Ambien if patient wants it.
[2019-06-10] MEDS: D5 LR IV SOLUTION 1,000 ML IV SCH (20:40)
[2019-06-10] MEDS ORDERED: LACTATED RINGERS 1,000 ML IV SCH (20:40)
[2019-06-10] MEDS ORDERED: MISOPROSTOL 100 MCG (CYTOTEC) TAB PO ONE (20:45)
[2019-06-10] MEDS ORDERED: ZOLPIDEM 5 MG (AMBIEN) TAB PO ONE (20:45)
[2019-06-10] MEDS ORDERED: MINERAL OIL CONCENTRATE 99.9% 15 ML UDC TOP PRN (20:45)
[2019-06-10 20:52] LABS: BASOPHILS % (AUTO) 0 % (0-10); EOSINOPHILS % (AUTO) 0 % (0-10); HEMATOCRIT 36 % (35-52); LYMPHOCYTES # (AUTO) 1.5 X 10^3 (1.0-4.0); LYMPHOCYTES % (AUTO) 17 % (12-44); MEAN CORPUSCULAR HEMOGLOBIN 27 PG (25-34); MEAN CORPUSCULAR HGB CONC 33 G/DL (32-36); MEAN CORPUSCULAR VOLUME 82 FL (80-99); MEAN PLATELET VOLUME 12.7 FL (7.4-10.4); MONOCYTES # (AUTO) 0.6 X 10^3 (0.0-1.0); MONOCYTES % (AUTO) 6 % (0-12); NEUTROPHILS # (AUTO) 6.7 X 10^3 (1.8-7.8); NEUTROPHILS % (AUTO) 76 % (42-75); PLATELET COUNT 145 10^3/uL (130-400); RED CELL DISTRIBUTION WIDTH 15.3 % (10.0-14.5); WHITE BLOOD COUNT 8.8 10^3/uL (4.3-11.0)
[2019-06-10 20:55] LABS: BILIRUBIN,URINE NEGATIVE (NEGATIVE); CLARITY,URINE CLEAR; COLOR,URINE YELLOW; GLUCOSE, URINE (UA) NEGATIVE (NEGATIVE); KETONES,URINE NEGATIVE (NEGATIVE); LEUKOCYTE ESTERASE ,URINE 1+ (NEGATIVE); NITRITE,URINE NEGATIVE (NEGATIVE); PH,URINE 6 (5-9); PROTEIN,URINE 1+ (NEGATIVE); UROBILINOGEN,URINE NORMAL (NORMAL)
[2019-06-10 21:00] VITALS: BP 126/84
[2019-06-10 21:03] LABS: BACTERIA,URINE TRACE /HPF; CALCIUM OXALATE CRYSTALS,UR LARGE /LPF; RBC,URINE RARE /HPF; WBC,URINE RARE /HPF
[2019-06-10 22:00] VITALS: BP 138/71
[2019-06-10 23:00] VITALS: BP 109/66
[2019-06-11] VITALS (35 sets, daily range): BP systolic 92–163; BP diastolic 58–90
[2019-06-11] MEDS ORDERED: HYDROmorphone 2 MG/ML VIAL (DILAUDID) IV ONE (01:15)
[2019-06-11] MEDS ORDERED: SUFENTA 0.6MCG/ML BUPIVA 0.125 100 ML ONE (02:18)
[2019-06-11] MEDS ORDERED: fentaNYL INJECTION 100 MCG/2 ML AMP ONE (02:36)
[2019-06-11] MEDS: MISOPROSTOL 100 MCG (CYTOTEC) TAB PO SCH ×2 (02:40→04:50)
--- NOTE | 2019-06-11 02:45 | NUR ---
Areli Wilson CRNA here for epidural placement. Procedure explained, consent reviewed and signed by anesthesia. Questions answered to patient's satisfaction. Time out taken to verify correct patient/procedure. Patient up to side of bed, assisted into sitting position. Betadine prep done x3 and sterile drape applied. Local done, see anesthesia record. Test dose given, see anesthesia record for drug and dosage. Epidural catheter secured in place. Epidural placement complete. Assisted back into bed, monitors adjusted. Epidural dosed, see anesthesia record. Epidural of Sufenta/Bupvicaine @ 12cc/hr stated per pump. Patient tolerated procedure well.
[2019-06-11] MEDS ORDERED: BUPIVACAINE 0.25% 30 ML (SENSORCAINE) VIAL ONE (03:02)
[2019-06-11] MEDS ORDERED: LIDOCAINE PF 2% 5 ML (XYLOCAINE) VIAL ONE (03:02)
[2019-06-11] MEDS ORDERED: LACTATED RINGERS 1,000 ML IV ONE ×2 (03:06)
[2019-06-11] MEDS ORDERED: NALOXONE 0.4 MG/ML 1 ML (NARCAN) VIAL IV PRN (03:15)
[2019-06-11] MEDS ORDERED: EPIDURAL (SUFENTA 0.6MCG/ML BUPIVA 0.125%) 100 ML BAG EPI PRN (03:15)
[2019-06-11] MEDS ORDERED: ONDANSETRON 4 MG/2 ML (SDV) Z0FRAN IV PRN (03:15)
[2019-06-11] MEDS: D5 LR IV SOLUTION 1,000 ML IV SCH (04:50)
[2019-06-11] MEDS ORDERED: OXYTOCIN/NORMAL SALINE 500 ML IV ONE (05:27)
[2019-06-11] MEDS ORDERED: LIDOCAINE/EPI 2% 1:200,00 (XYLOCAINE) 10 ML VIAL ONE (06:02)
[2019-06-11] MEDS ORDERED: OXYTOCIN/NORMAL SALINE 500 ML IV SCH (06:50)
[2019-06-11] MEDS ORDERED: TETANUS,DIPTH,PERTUSS P/F (BOOSTRIX) 0.5 ML VIAL IM ONE (07:00)
[2019-06-11] MEDS ORDERED: MEASLES,MUMPS,RUBELLA 1 EA INJ SQ ONE (07:00)
[2019-06-11] MEDS ORDERED: BENZOCAINE/MENTHOL (DERMOPLAST) 56 ML CAN TP PRN (07:00)
[2019-06-11] MEDS ORDERED: WITCH HAZEL(TUCKS) 40 EA JAR TOP PRN (07:00)
--- NOTE | 2019-06-11 07:00 | NUR ---
REPORT FROM MARSHA HAWKINS.
--- NOTE | 2019-06-11 07:07 | OB Labor & Delivery Record ---
Vag Delivery Note Vag Delivery Note Date of Delivery: 06/11/19 Preoperative Diagnosis: Carlene Reyes is a 29 /Para 2/ 1, Gestational Age 39 1/7 weeks for social induction Postoperative Diagnosis: Same Surgeon: WILIAN Garcia Anesthesia: epidural Delivery Type: vaginal Findings: Viable female infant, apgars pending, weight pending Lacerations: none Intact placenta with 3 vessel cord. No nuchal cord, body cord or shoulder dystocia. There was an occult prolapse (cord looped and up near the neck but not around anything) Estimated Blood Loss: 200 ml Complications: None Condition: Stable Description of Procedure: The patient is a 29 year old female who presented for induction of labor. She was admitted and informed consent was obtained. Her labor course was remarkable for cytotec x 1. AROM at complete. She progressed to complete dilatation and began to push. She was then set up for delivery. The infant's head was delivered atraumatically in the JOSÉ position. The shoulders and remainder of the infant's body were then delivered without difficulty. Upon delivery, the head was held below the level of the perineum and the mouth and nares were bulb suctioned. The cord was doubly clamped and cut and the infant was handed off to the pediatric staff. An intact placenta with 3-vessel cord delivered via Felix and there was found to be minimal bleeding.~ Vigorous fundal massage was performed and the fundus was found to be firm. IV oxytocin was given. Examination of the vagina and perineum revealed no laceration. Following the delivery, sponge, instrument and needle counts were correct. Mom and baby were both in stable condition in the labor suite. Vitals - Labs Vital Signs - I&O Vital Signs Date Time Temp Pulse Resp B/P (MAP) Pulse Ox O2 Delivery O2 Flow Rate FiO2 06/11/19 06:20 61 16 105/71 (82) 100 Room Air 06/11/19 06:05 67 16 102/65 (77) 100 Room Air 06/11/19 05:50 60 16 103/67 (79) 98 Room Air 06/11/19 05:35 97.3 58 16 114/65 (81) 99 Room Air 06/11/19 05:15 55 16 92/59 (70) 98 Room Air 06/11/19 05:05 57 16 106/67 (80) 98 Room Air 06/11/19 04:45 86 16 105/70 (82) 99 Room Air 06/11/19 04:35 55 16 111/73 (86) 98 Room Air 06/11/19 04:20 59 16 109/74 (86) 98 Room Air 06/11/19 04:05 58 16 93/58 (70) 98 Room Air 06/11/19 03:43 56 16 117/74 (88) 99 Room Air 06/11/19 03:38 66 16 112/76 (88) 99 Room Air 06/11/19 03:33 76 16 106/73 (84) 99 Room Air 06/11/19 03:30 97.0 65 16 111/78 (89) 100 Room Air 06/11/19 03:25 75 16 121/78 (92) 99 Room Air 06/11/19 03:15 85 16 125/72 (89) 96 Room Air 06/11/19 03:13 68 16 125/67 (86) 96 Room Air 06/11/19 03:10 71 16 130/75 (93) 98 Room Air 06/11/19 03:03 55 16 98 Room Air 06/11/19 02:55 76 18 150/66 (94) 98 Room Air 06/11/19 02:47 78 18 128/87 (101) Room Air 06/11/19 02:45 87 18 163/63 (96) Room Air 06/11/19 02:10 65 18 125/76 (92) Room Air 06/11/19 01:00 98.1 70 18 133/83 (100) Room Air 06/11/19 00:00 70 18 128/77 (94) Room Air 06/10/19 23:00 97.9 52 16 109/66 (80) Room Air 06/10/19 22:00 58 16 138/71 (93) Room Air 06/10/19 21:00 82 16 126/84 (98) Room Air 06/10/19 20:10 98.2 98 16 133/79 (97) Room Air I & O 06/11/19 07:00 Intake Total 4200 ml Output Total 300 ml Balance 3900 ml Labs Laboratory Tests 06/10/19 20:00: Urine Color YELLOW, Urine Clarity CLEAR, Urine pH 6, Urine Specific Toyah 1.025H, Urine Protein 1+H, Urine Glucose (UA) NEGATIVE, Urine Ketones NEGATIVE, Urine Nitrite NEGATIVE, Urine Bilirubin NEGATIVE, Urine Urobilinogen NORMAL, Urine Leukocyte Esterase 1+H, Urine RBC (Auto) NEGATIVE, Urine RBC RARE, Urine WBC RARE, Urine Squamous Epithelial Cells 10-25H, Urine Crystals PRESENTH, Urine Calcium Oxalate Crystals LARGEH, Urine Bacteria TRACE, Urine Casts NONE, Urine Mucus NEGATIVE, Urine Culture Indicated NO 06/10/19 20:40: White Blood Count 8.8, Red Blood Count 4.43, Hemoglobin 12.0, Hematocrit 36, Mean Corpuscular Volume 82, Mean Corpuscular Hemoglobin 27, Mean Corpuscular Hemoglobin Concent 33, Red Cell Distribution Width 15.3H, Platelet Count 145, Mean Platelet Volume 12.7H, Neutrophils (%) (Auto) 76H, Lymphocytes (%) (Auto) 17, Monocytes (%) (Auto) 6, Eosinophils (%) (Auto) 0, Basophils (%) (Auto) 0, Neutrophils # (Auto) 6.7, Lymphocytes # (Auto) 1.5, Monocytes # (Auto) 0.6, Eosinophils # (Auto) 0.0, Basophils # (Auto) 0.0 WILIAN RASHEED DO Jun 11, 2019 07:07
--- NOTE | 2019-06-11 08:20 | NUR ---
[employer] SERVED.
[2019-06-11] MEDS: DOCUSATE SODIUM 100 MG (COLACE) CAP PO SCH ×2 (09:15→23:37)
[2019-06-11] MEDS: FERROUS SULF 325 MG (IRON) TAB PO SCH (09:15)
[2019-06-11] MEDS: PRENATAL VITAMIN 1 EA TAB PO SCH (09:15)
[2019-06-11] MEDS: IBUPROFEN 600 MG (MOTRIN) TAB PO SCH ×2 (09:15→18:59)
--- NOTE | 2019-06-11 09:15 | NUR ---
PT AMBULATED TO BR WITH THIS RN AT SIDE, VOIDED, PERICARE COMPLETED PAD AND PANTIES APPLIED, LT LOCHIA NOTED, PT VERBALIZES UNDERSTANDING OF PERICARE PROCEDURE. PT AMBULATED BACK TO , TRANSFERRED TO ROOM 3309 FOR CONTINUED CARE, IV HEP LOCKED. EXPLAINED PLAN OF CARE INCLUDING INFO PACKETS, AND CARE AND MEDICATIONS. PT DENIES ANY QUESTIONS OR CONCERNS AT THIS TIME, WILL MONITOR CLOSELY.
--- NOTE | 2019-06-11 12:30 | NUR ---
PT CALLED RN TO ROOM, WHILE AMBULATING TO BR, NOTED TRAIL OF BLOOD LEAKING BEHIND HER, ASSISTED TO BR, EXAMINED PERINEUM AND FUNDAL MASSAGE PREFORMED, FFU/1 LT LOCHIA NOTED WITH FUNDAL MASSAGE NO CLOTS EXPRESSED, PERINEUM BRUISED AND SWOLLEN BUT WITHOUT LACERATIONS. PTS V PAD NOTED TO BE PUSHED TO FAR FORWARD AND UNABLE TO PROTECT PT FROM LEAKING. SMALL AMOUNT OF BLOOD SPOTS CLEANED OFF FLOOR BY RN, NEW PAD AND PANTIES ON, DERMAPLAST AND TUCKS APPLIED, PT BACK TO BED, NO C/O NOTED, IN FAMILY MEMBERS ARMS, S/O LAYING IN BED WITH PT. WILL MONITOR CLOSELY.
[2019-06-11] MEDS ORDERED: CATHETER FLUSH 10 ML SYR IV SCH (14:00)
[2019-06-11] MEDS: ACETAMINOPHEN 500 MG TAB (TYLENOL) PO SCH ×2 (15:26→23:37)
--- NOTE | 2019-06-11 17:32 | NUR ---
IV REMOVED, PT RESTING IN BED, SHOWER SET UP, S/O AT SIDE.
[2019-06-12] MEDS: ACETAMINOPHEN 500 MG TAB (TYLENOL) PO SCH ×2 (01:40→10:00)
[2019-06-12] MEDS: IBUPROFEN 600 MG (MOTRIN) TAB PO SCH ×2 (01:40→06:24)
[2019-06-12 06:25] VITALS: BP 125/87
[2019-06-12 07:10] LABS: BASOPHILS % (AUTO) 0 % (0-10); EOSINOPHILS # (AUTO) 0.1 10^3/uL (0.0-0.3); EOSINOPHILS % (AUTO) 1 % (0-10); HEMATOCRIT 35 % (35-52); HEMOGLOBIN 11.3 G/DL (11.5-16.0); LYMPHOCYTES # (AUTO) 1.9 X 10^3 (1.0-4.0); LYMPHOCYTES % (AUTO) 24 % (12-44); MEAN CORPUSCULAR HEMOGLOBIN 27 PG (25-34); MEAN CORPUSCULAR HGB CONC 32 G/DL (32-36); MEAN CORPUSCULAR VOLUME 84 FL (80-99); MONOCYTES # (AUTO) 0.3 X 10^3 (0.0-1.0); MONOCYTES % (AUTO) 4 % (0-12); NEUTROPHILS # (AUTO) 5.6 X 10^3 (1.8-7.8); NEUTROPHILS % (AUTO) 71 % (42-75); PLATELET COUNT 128 10^3/uL (130-400); RED CELL DISTRIBUTION WIDTH 15.6 % (10.0-14.5); WHITE BLOOD COUNT 7.9 10^3/uL (4.3-11.0)
--- NOTE | 2019-06-12 09:17 | Anesthesia-Regional Post-Op ---
Regional Patient Condition Mental Status: Alert, Oriented x3 Circulation: Same as Pre-Op Headache: Absent Sensation: Full Recovery Motor Block: Absent Post Op Complications Complications None Follow Up Care/Instructions Patient Instructions None needed. Anesthesia/Patient Condition Patient is doing well, no complaints, stable vital signs, no apparent adverse anesthesia problems. No complications reported per nursing. SHIRLEY DUDLEY CRNA Jun 12, 2019 09:17
[2019-06-12 09:58] VITALS: BP 128/86
[2019-06-12] MEDS: FERROUS SULF 325 MG (IRON) TAB PO SCH (09:59)
[2019-06-12] MEDS: DOCUSATE SODIUM 100 MG (COLACE) CAP PO SCH (09:59)
[2019-06-12] MEDS: PRENATAL VITAMIN 1 EA TAB PO SCH (09:59)
[2019-06-12] MEDS ORDERED: ACET-77 PO (10:39)
[2019-06-12] MEDS ORDERED: IBUP-844 PO (10:39)
--- NOTE | 2019-06-12 10:40 | Discharge Inst-Women's Service ---
Discharge Inst-Women's Serv Depart Medication/Instructions New, Converted or Re-Newed RX: Transmitted to Pharmacy Final Diagnosis induction vaginal delivery epidural Problems Reviewed?: Yes Consults/Follow Up Additional Follow Up: Yes (6 weeks for exam) Activity Activity: Activity as Tolerated Driving Instructions: You May Drive NO SMOKING: NO SMOKING Nothing Inside Vagina: No Douching, No [place], No Tampons Diet Discharge Diet: No Restrictions Symptoms to Report to : Swelling Increased, Bleeding Excessive, Pain Increased, Fever Over 101 Degrees F, Vaginal Bleeding Increase, Cramps in Feet or Legs, Vaginal Discharge Foul For Any Problems or Questions: Contact Your Physician Skin/Wound Care Bathing Instructions: WILIAN Calderon DO Jun 12, 2019 10:40
--- NOTE | 2019-06-12 12:10 | NUR ---
Dr. Simmons notified of pt desiring to go home. OK to D/C without Dr. campoverde.
--- NOTE | 2019-06-12 13:40 | NUR ---
DISCHARGE INSTRUCTIONS EXPLAINED TO PT WITH COPY PROVIDED TO PT. PT NOTIFIED OF SCRIPTS AVAILABLE AT [facility] AND WHEN ABLE TO TAKE NEXT DOSE. PT VERBALIZES UNDERSTANDING OF INSTRUCTIONS, SIGNS TO VERIFY. DENIES NEEDS OR QUESTIONS AT THIS TIME.
--- NOTE | 2019-06-12 14:20 | NUR ---
PT AMBULATES OFF UNIT ACCOMPANIED BY RN, , MOTHER TO PRIVATE VEHICLE. ALL PERSONAL BELONGINGS WITH PT. NO S/S OF DISTRESS NOTED.
== END 2019-06-12 14:20 | disposition home or self-care (01) | DRG 807 ==
LOC: LDRP 19:58
PROVIDERS: ADMIT Obstetrics & Gynecology; ATTEND Obstetrics & Gynecology
PROC: 3E0DXGC Introduction of Other Therapeutic Substance into Mouth and Pharynx, External Approach (ICD-10-PCS; 2019-06-10)
PROC: 10E0XZZ Delivery of Products of Conception, External Approach (ICD-10-PCS; principal; 2019-06-11)
DX: O69.0XX0 Labor and delivery complicated by prolapse of cord, not applicable or unspecified (principal); Z37.0 Single live birth; Z3A.39 39 weeks gestation of pregnancy
CPT/HCPCS: 36415; 81000; 85025; 86850; 86900; 86901

== ENCOUNTER 2019-12-01 11:21 | Emergency (ER) | payer BC ==
[~2019-12-01] VITALS: Ht 162.5 cm; Wt 106.8 kg
[~2019-12-01 11:21] MED LIST changes: +ACET-78 PO; +IBUP-844 PO
--- NOTE | 2019-12-01 11:34 | ED Neck-Back Pain/Injury ---
General Chief Complaint: General Problems/Pain Stated Complaint: L SIDE OF BODY NUMB Source of Information: Patient Exam Limitations: No Limitations History of Present Illness Date Seen by Provider: Dec 01, 2019 Time Seen by Provider: 11:30 Initial Comments To ER with reports of left-sided body numbness since awakening this morning. She noticed some left-sided neck discomfort yesterday, thought maybe she slept on it wrong. Since then she's had some numbness spreading from the left side of her neck down her left arm. Does not affect the left leg and there are no other symptoms such as slurred speech. Location: C-Spine Timing/Duration: 1-2 Days Severity: Moderate Pain/Injury Location: Upper Extremity Allergies and Home Medications Allergies Coded Allergies: No Known Drug Allergies (Unverified , 03/24/15) Home Medications Acetaminophen 500 Mg Tablet, 1,000 MG PO Q8HR Prescribed by: WILIAN RASHEED on 06/12/19 1039 Ibuprofen 600 Mg Tablet, 600 MG PO Q6HR Prescribed by: WILIAN RASHEED on 06/12/19 1039 Methocarbamol 750 Mg Tablet, 750 MG PO Q4H PRN for PAIN-MODERATE (5-7) Prescribed by: LIDA FAIR on 12/01/19 1153 Prednisone 20 Mg Tab, 40 MG PO DAILY Prescribed by: LIDA FAIR on 12/01/19 1153 Vit No.124/Iron/FA 1 Each Tablet, 1 EACH PO DAILY, (Reported) Patient Home Medication List Home Medication List Reviewed: Yes Review of Systems Constitutional: see HPI EENTM: see HPI Respiratory: no symptoms reported Cardiovascular: no symptoms reported Genitourinary: no symptoms reported Musculoskeletal: see HPI, neck pain Skin: no symptoms reported Psychiatric/Neurological: No Symptoms Reported Past Lnurasw-Dlbnsd-Ygxfkn Hx Patient Social History Type Used: Cigarettes Former Smoker, Quit: Dec 01, 2009 2nd Hand Smoke Exposure: No Recent Foreign Travel: No Contact w/Someone Who Travel: No Recent Hopitalizations: No Seasonal Allergies Seasonal Allergies: No Past Medical History Surgeries: Yes Appendectomy Respiratory: No Cardiac: No Neurological: No 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 Disorders: No Genitourinary: No Gastrointestinal: No Musculoskeletal: No Endocrine: No HEENT: No Cancer: No Psychosocial: No Integumentary: No Blood Disorders: No Adverse Reaction/Blood Tranf: No Family Medical History Cardiovascular disease GRANDFATHER, MATERNAL Diabetes mellitus GRANDMOTHER, MATERNAL FH: Crohn's disease GRANDMOTHER, MATERNAL 19 MOTHER No Pertinent Family Hx Physical Exam Vital Signs Vital Signs - First Documented 12/01/19 11:27 Temp 37.0 Pulse 83 Resp 20 B/P (MAP) 134/94 (107) Pulse Ox 96 O2 Delivery Room Air Capillary Refill : Height, Weight, BMI Height: 5'4.00" Weight: 260lbs. 0.6oz. 117.610702gu; 44.6 BMI Method:Stated General Appearance: No Apparent Distress, WD/WN, Other (no arm drift, exhibit designer are equal bilaterally, speech is clear and fluent. Reports dullness to touch on the left arm affecting all fingers.) HEENT: PERRL/EOMI, TMs Normal Neck: Full Range of Motion, Normal Inspection Respiratory: Normal Breath Sounds, No Accessory Muscle Use Gastrointestinal: Normal Bowel Sounds, Non Tender, Soft Extremity: Normal Capillary Refill, Normal Inspection Neurologic/Psychiatric: Alert, Oriented x3 Skin: Normal Color, Warm/Dry Gait is normal Progress/Results/Core Measures Results/Orders My Orders Orders - LIDA FAIR APRN Ct Head/Cervical Spine Wo (12/01/19 11:29) Vital Signs/I&O 12/01/19 11:27 Temp 37.0 Pulse 83 Resp 20 B/P (MAP) 134/94 (107) Pulse Ox 96 O2 Delivery Room Air Departure Communication (Admissions) [id number]-She is using her left hand to hold and swipe on her cell phone. Impression Primary Impression: Cervical radiculopathy Disposition: HOME, SELF-CARE Condition: Stable Departure-Patient Inst. Decision time for Depature: 11:34 Referrals: NO,LOCAL PHYSICIAN (PCP/Family) Primary Care Physician Patient Instructions: Radiculopathy (DC) Add. Discharge Instructions: 1. Follow-up with your doctor next week 2. Steroids and muscle relaxers as directed. All discharge instructions reviewed with patient and/or family. Voiced understanding. Scripts Methocarbamol (Robaxin-750) 750 Mg Tablet 750 MG PO Q4H PRN for PAIN-MODERATE (5-7), #10 TAB Prov: LIDA FAIR APRN 12/01/19 Prednisone (Prednisone) 20 Mg Tab 40 MG PO DAILY, #6 TAB 0 Refills Prov: LIDA FAIR APRN 12/01/19 LIDA FAIR APRN Dec 01, 2019 11:34
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
[2019-12-01] MEDS ORDERED: PRD20T PO (11:53)
[2019-12-01] MEDS ORDERED: METH-313 PO (11:53)
[2019-12-01 12:08] VITALS: BP 134/94
== END 2019-12-01 12:08 | disposition home or self-care (01) ==
LOC: EDUNIT# 11:21 → ER 11:22
DX: M54.12 Radiculopathy, cervical region (principal); Z87.891 Personal history of nicotine dependence; Z82.49 Family history of ischemic heart disease and other diseases of the circulatory system
CPT/HCPCS: 70450; 72125

== ENCOUNTER 2019-12-02 23:34 | Emergency (ER) | payer BC ==
[~2019-12-02] VITALS: Ht 162 cm; Wt 106.8 kg
[~2019-12-02 23:34] MED LIST changes: +METH-313 PO; +PRD20T PO
[2019-12-03] MEDS ORDERED: KETOROLAC 30 MG/ML VIAL IVP ONE
[2019-12-03] MEDS ORDERED: ORPHENADRINE 60 MG/2 ML (NORFLEX) AMP IV ONE
--- NOTE | 2019-12-03 00:55 | ED Neck-Back Pain/Injury ---
General Chief Complaint: Head/Cervical Problems Stated Complaint: PAIN IN LOW NECK, LEFT SIDE OF BODY NUMB Nursing Triage Note: pt presents to ed room 9 ambulatory c/o neck pain that is not relieved by her muscle relaxant she was prescribed in this ED yesterday. pt states pain is in the L side of her neck, verbalizes pins and needles sensations in her l side of her body, to include trunk and feet. denies sob, denies CP Nursing Sepsis Screen: No Definite Risk Source of Information: Patient Exam Limitations: No Limitations History of Present Illness Date Seen by Provider: Dec 02, 2019 Time Seen by Provider: 23:54 Allergies and Home Medications Allergies Coded Allergies: No Known Drug Allergies (Unverified , 03/24/15) Home Medications Acetaminophen 500 Mg Tablet, 1,000 MG PO Q8HR Prescribed by: WILIAN RASHEED on 06/12/19 1039 Ibuprofen 600 Mg Tablet, 600 MG PO Q6HR Prescribed by: WILIAN RASHEED on 06/12/19 1039 Methocarbamol 750 Mg Tablet, 750 MG PO Q4H PRN for PAIN-MODERATE (5-7) Prescribed by: LIDA FAIR on 12/01/19 1153 Prednisone 20 Mg Tab, 40 MG PO DAILY Prescribed by: LIDA FAIR on 12/01/19 1153 Vit No.124/Iron/FA 1 Each Tablet, 1 EACH PO DAILY, (Reported) Past Cpsnyso-Yxorza-Hqinzw Hx Patient Social History Alcohol Use: Denies Use Recreational Drug Use: No Smoking Status: Former Smoker Type Used: Cigarettes Former Smoker, Quit: Dec 01, 2009 2nd Hand Smoke Exposure: No Recent Foreign Travel: No Contact w/Someone Who Travel: No Recent Infectious Disease Expo: No Recent Hopitalizations: No Physical Abuse: No Sexual Abuse: No Mistreated: No Fear: No Immunizations Up To Date Tetanus Booster (TDap): Unknown PED Vaccines UTD: Yes Seasonal Allergies Seasonal Allergies: No Past Medical History Surgeries: Yes Appendectomy, Tubal Ligation Respiratory: No Cardiac: No Neurological: No : No 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 Disorders: No [employer] History: Tubal Ligation Genitourinary: No Gastrointestinal: No Musculoskeletal: No Endocrine: No HEENT: No Cancer: No Psychosocial: No Integumentary: No Blood Disorders: No Adverse Reaction/Blood Tranf: No Family Medical History Cardiovascular disease GRANDFATHER, MATERNAL Diabetes mellitus GRANDMOTHER, MATERNAL FH: Crohn's disease GRANDMOTHER, MATERNAL 19 MOTHER No Pertinent Family Hx Physical Exam Vital Signs Vital Signs - First Documented 12/02/19 23:54 Temp 36.4 Pulse 69 Resp 22 B/P (MAP) 145/86 (105) Pulse Ox 99 O2 Delivery Room Air Capillary Refill : Less Than 3 Seconds Height, Weight, BMI Height: 5'4.00" Weight: 260lbs. 0.6oz. 117.949544dw; 40.00 BMI Method:Stated Progress/Results/Core Measures Results/Orders My Orders Orders - BEL MARQUEZ MD Ed Iv/Invasive Line Start (12/02/19 23:58) Ketorolac Injection (Toradol Injection) (12/03/19 00:00) Orphenadrine Injection (Norflex Injectio (12/03/19 00:00) Tramadol Tablet (Ultram Tablet) (12/03/19 01:00) Medications Given in ED Current Medications Medications Dose Ordered Sig/Jane Route Start Time Stop Time Status Last Admin Dose Admin Ketorolac Tromethamine 30 mg ONCE ONCE IVP 12/03/19 00:00 12/03/19 00:01 DC 12/03/19 00:11 30 MG Orphenadrine Citrate 30 mg ONCE ONCE IV 12/03/19 00:00 12/03/19 00:01 DC 12/03/19 00:11 30 MG Vital Signs/I&O 12/02/19 23:54 Temp 36.4 Pulse 69 Resp 22 B/P (MAP) 145/86 (105) Pulse Ox 99 O2 Delivery Room Air Blood Pressure Mean: 105 Departure Impression Primary Impression: Neck pain Additional Impression: Paresthesia and pain of extremity Disposition: 01 HOME, SELF-CARE Condition: Improved Departure-Patient Inst. Decision time for Depature: 00:50 Referrals: NO,LOCAL PHYSICIAN (PCP/Family) Primary Care Physician Patient Instructions: Paresthesias (DC), Radiculopathy Add. Discharge Instructions: Gentle heat to your neck may help relax tight muscles. For primary pain control use ibuprofen up to 600 mg every 6 hours or Aleve (naproxen) up to 500 mg twice daily. You may add Tylenol (acetaminophen) up to 1000 mg every 6 hours as needed. For more severe pain not controlled by above medications, try Ultram or gabapentin as prescribed. Please use these medications with caution as they may cause drowsiness making unsafe to drive, operate machinery, or make serious decisions. You may continue using the muscle relaxer for muscle spasms as well. Follow-up with the primary care provider soon as possible. If symptoms do not resolve with steroids within a few days, further evaluation with MRI may be necessary. Return to care immediately if you develop weakness of your extremities, difficulty controlling bowels or bladder, or numbness of your groin. All discharge instructions reviewed with patient and/or family. Voiced understanding. Scripts Gabapentin (Gabapentin) 300 Mg Capsule 300 MG PO BID, #10 CAP Prov: BEL MARQUEZ MD 12/03/19 Tramadol HCl (Ultram) 50 Mg Tablet 50 MG PO Q6H PRN for PAIN-BREAKTHROUGH, #20 TAB Prov: BEL MARQUEZ MD 12/03/19 BEL MARQUEZ MD Dec 03, 2019 00:55
[2019-12-03] MEDS ORDERED: GABA-488 PO (00:57)
[2019-12-03] MEDS ORDERED: TRAM-42 PO (00:57)
[2019-12-03 01:07] VITALS: BP 104/85
== END 2019-12-03 01:07 | disposition home or self-care (01) ==
LOC: EDUNIT# 23:34 → ER 23:36
DX: M54.2 Cervicalgia (principal); R20.2 Paresthesia of skin; Z87.891 Personal history of nicotine dependence; Z82.49 Family history of ischemic heart disease and other diseases of the circulatory system
CPT/HCPCS: 96374; 96375

== ENCOUNTER 2019-12-10 23:14 | Emergency (ER) | payer BC ==
[~2019-12-10] VITALS: Ht 162.6 cm; Wt 112.7 kg
[~2019-12-10 23:14] MED LIST changes: +GABA-488 PO; +TRAM-42 PO
[2019-12-10] MEDS ORDERED: fentaNYL INJECTION 100 MCG/2 ML AMP IVP ONE (23:30)
[2019-12-10] MEDS ORDERED: ORPHENADRINE 60 MG/2 ML (NORFLEX) AMP IV ONE (23:30)
[2019-12-10] MEDS ORDERED: KETOROLAC 30 MG/ML VIAL IVP ONE (23:30)
[2019-12-11] MEDS ORDERED: NS IV 1000 ML 1,000 ML IV SCH (00:11)
[2019-12-11] MEDS ORDERED: LORazepam INJ 2 MG/ML (ATIVAN) VIAL IVP ONE (00:15)
--- NOTE | 2019-12-11 00:27 | ED General ---
General Chief Complaint: General Problems/Pain Stated Complaint: LEFT HAND NUMB,PAIN AT BASE OF SKULL Nursing Triage Note: Pt ambulates to [facility] with c/o left hand "numbness" and left sided neck pain x 1.5 wks. Pt was seen in this ER a week ago for same symptoms and was prescribed gabapentin and tramadol, pt reports no relief with these meds. Nursing Sepsis Screen: No Definite Risk Source of Information: Patient, Old Records Exam Limitations: No Limitations History of Present Illness Date Seen by Provider: Dec 10, 2019 Time Seen by Provider: 23:20 Initial Comments This 29-year-old woman presents to the emergency room with severe pain in the left neck radiating down into the left arm with associated of this area weakness of the left arm and hand. She has been seen in this emergency twice in the past for similar symptoms. She has been taking muscle relaxers, gabapentin, Ultram, and [id number]-[id number] pain medications. She also completed a round of steroids early in the course of this illness. She presents tonight with severe exacerbation of the pain and weakness. She had been instructed during her prior visit to go to an emergency room with MRI capability should her symptoms worsen. However, she elected to come here because she could not drive herself as far as [place] and she did not have anyone else to drive her. She had a CT of the head and cervical spine on a prior visit with no significant abnormalities noted. She has established care with a doctor in [place], [place] since her last visit to the emergency room. An MRI has been scheduled for this coming December 14. Allergies and Home Medications Allergies Coded Allergies: No Known Drug Allergies (Unverified , 03/24/15) Home Medications Acetaminophen 500 Mg Tablet, 1,000 MG PO Q8HR Prescribed by: WILIAN RASHEED on 06/12/19 1039 Gabapentin 300 Mg Capsule, 300 MG PO BID Prescribed by: BEL PRADHAN on 12/03/19 0057 Ibuprofen 600 Mg Tablet, 600 MG PO Q6HR Prescribed by: WILIAN RASHEED on 06/12/19 1039 Methocarbamol 750 Mg Tablet, 750 MG PO Q4H PRN for PAIN-MODERATE (5-7) Prescribed by: LIDA FAIR on 12/01/19 1153 Oxycodone HCl/Acetaminophen 1 Each Tablet, 1 TAB PO Q4H PRN for PAIN- BREAKTHROUGH Prescribed by: BEL PRADHAN on 12/11/19 0126 Prednisone 20 Mg Tab, 40 MG PO DAILY Prescribed by: LIDA FAIR on 12/01/19 1153 Prednisone 20 Mg Tab, 40 MG PO DAILY Prescribed by: BEL PRADHAN on 12/11/19 0126 Vit No.124/Iron/FA 1 Each Tablet, 1 EACH PO DAILY, (Reported) Tramadol HCl 50 Mg Tablet, 50 MG PO Q6H PRN for PAIN-BREAKTHROUGH Prescribed by: BEL PRADHAN on 12/03/19 0057 Patient Home Medication List Home Medication List Reviewed: Yes Review of Systems Review of Systems Constitutional: no symptoms reported EENTM: no symptoms reported Respiratory: no symptoms reported Cardiovascular: no symptoms reported Gastrointestinal: no symptoms reported Genitourinary: no symptoms reported : No Musculoskeletal: see HPI Skin: no symptoms reported Psychiatric/Neurological: See HPI Hematologic/Lymphatic: No Symptoms Reported Immunological/Allergic: no symptoms reported Past Jhvqvqa-Gctxpf-Meeysr Hx Past Med/Social Hx: Reviewed and Corrections made Patient Social History Alcohol Use: Denies Use Recreational Drug Use: No Smoking Status: Former Smoker Type Used: Cigarettes Former Smoker, Quit: Dec 01, 2009 2nd Hand Smoke Exposure: No Recent Foreign Travel: No Contact w/Someone Who Travel: No Recent Infectious Disease Expo: No Recent Hopitalizations: No Physical Abuse: No Sexual Abuse: No Mistreated: No Fear: No Immunizations Up To Date Tetanus Booster (TDap): Unknown PED Vaccines UTD: Yes Seasonal Allergies Seasonal Allergies: No Past Medical History Surgeries: Yes Appendectomy, Tubal Ligation Respiratory: No Cardiac: No Neurological: No : No 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 Disorders: No 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 Genitourinary: No Gastrointestinal: No Musculoskeletal: Yes (cervical radiculopathy) Endocrine: No HEENT: No Cancer: No Psychosocial: No Integumentary: No Blood Disorders: No Adverse Reaction/Blood Tranf: No Family Medical History Reviewed Nursing Family Hx Cardiovascular disease GRANDFATHER, MATERNAL Diabetes mellitus GRANDMOTHER, MATERNAL FH: Crohn's disease GRANDMOTHER, MATERNAL 19 MOTHER No Pertinent Family Hx Physical Exam Vital Signs Vital Signs - First Documented 12/10/19 23:22 Temp 36.4 Pulse 73 Resp 20 B/P (MAP) 124/89 (101) Pulse Ox 98 O2 Delivery Room Air Capillary Refill : Less Than 3 Seconds Height, Weight, BMI Height: 5'4.00" Weight: 260lbs. 0.6oz. 117.298767fg; 42.00 BMI Method:Stated General Appearance: WD/WN, Moderate Distress HEENT: PERRL/EOMI, Normal ENT Inspection Neck: Normal Inspection, Other (Left paraspinous muscles very tight and tender) Respiratory: Lungs Clear, Normal Breath Sounds, No Accessory Muscle Use Cardiovascular: Regular Rate, Rhythm, No Edema, No Murmur Extremity: Normal Inspection, No Pedal Edema Neurologic/Psychiatric: Alert, Oriented x3, lead database developer II-XII Norm as Tested, Other (generalized weakness of the left upper extremity with decreased actuarial trainee, abduction, abduction, and rotation of the shoulder. Patient states this is largely limited by pain.) Skin: Normal Color, Warm/Dry Progress/Results/Core Measures Suspected Sepsis Recent Fever Within 48 Hours: No Infection Criteria Present: None New/Unexplained Altered Menta: No Sepsis Screen: No Definite Risk SIRS Temperature: Pulse: 73 Respiratory Rate: 20 Blood Pressure 124 /89 Mean: 101 Results/Orders My Orders Orders - BEL MARQUEZ MD Fentanyl Injection (Sublimaze Injection (12/10/19 23:30) Orphenadrine Injection (Norflex Injectio (12/10/19 23:30) Ketorolac Injection (Toradol Injection) (12/10/19 23:30) Lorazepam Injection (Ativan Injection) (12/11/19 00:15) Ed Iv/Invasive Line Start (12/11/19 00:02) Ns Iv 1000 Ml (Sodium Chloride 0.9%) (12/11/19 00:11) Methylprednisolone Sod Succ (Solu-Medrol (12/11/19 00:30) Medications Given in ED Current Medications Medications Dose Ordered Sig/Jane Route Start Time Stop Time Status Last Admin Dose Admin Fentanyl Citrate 75 mcg ONCE ONCE IVP 12/10/19 23:30 12/10/19 23:31 DC 12/10/19 23:37 75 MCG Ketorolac Tromethamine 15 mg ONCE ONCE IVP 12/10/19 23:30 12/10/19 23:31 DC 12/10/19 23:37 15 MG Lorazepam 0.5 mg ONCE ONCE IVP 12/11/19 00:15 2/11/20 00:16 DC 12/11/19 00:15 0.5 MG Methylprednisolone Sodium Succinate 125 mg ONCE ONCE IVP 12/11/19 00:30 12/11/19 00:31 DC 12/11/19 00:25 125 MG Orphenadrine Citrate 60 mg ONCE ONCE IV 12/10/19 23:30 12/10/19 23:31 DC 12/10/19 23:37 60 MG Vital Signs/I&O 12/10/19 12/11/19 23:22 01:34 Temp 36.4 36.4 Pulse 73 69 Resp 20 20 B/P (MAP) 124/89 (101) 107/66 (101) Pulse Ox 98 98 O2 Delivery Room Air Room Air Capillary Refill : Less Than 3 Seconds Blood Pressure Mean: 101 Progress Note #1: Time: 00:26 Progress Note Patient received Toradol, Norflex, and fentanyl. This did not improve her pain much and she was very anxious and tearful, bordering on hyperventilating. She was then given Ativan 0.5 mg IV which seemed to help significantly. She was regaining strength in her hand and pain was improving. She did have a brief period of hypotension after these medications. That has now resolved. She is receiving a liter of IV fluid. She is reluctant to be transferred to [place] where she can receive an emergent MRI. Since symptoms are improving we will watch her here for a bit longer and additionally give some Solu-Medrol. Once we're sure she does not have any sedating side effects from her medications she may be allowed to go home if she continues to improve. Progress Note #2: Time: 01:23 Progress Note Patient states her pain has completely resolved. She still has some paresthesia. Weakness seems to be improved as well. She was having no drowsiness or sedation side effects from her medications and was ready for dis charge home. Departure Impression Primary Impression: Cervical radiculopathy Additional Impressions: Left arm weakness Neck muscle spasm Disposition: HOME, SELF-CARE Condition: Improved Departure-Patient Inst. Decision time for Depature: 01:24 Referrals: NO,LOCAL PHYSICIAN (PCP/Family) Primary Care Physician Patient Instructions: Radiculopathy (DC) Add. Discharge Instructions: For pain first try ibuprofen up to 600 mg every 6 hours as needed. Then add Percocet as prescribed for pain not controlled by your other medications. You may use gabapentin and your muscle relaxers as previously prescribed. Follow through with your MRI appointment and follow-up with your primary care provider as soon as possible. If you have emergent concerns prior to your MRI appointment, consider presenting to a facility with 24-hour MRI capability such as the [facility] in [place]. All discharge instructions reviewed with patient and/or family. Voiced understanding. Scripts Oxycodone HCl/Acetaminophen (Percocet 5-325 mg Tablet) 1 Each Tablet 1 TAB PO Q4H PRN for PAIN-BREAKTHROUGH MDD 6 TABS, #10 TAB Prov: BEL MARQUEZ MD 12/11/19 Prednisone (Prednisone) 20 Mg Tab 40 MG PO DAILY, #6 TAB 0 Refills Prov: BEL MARQUEZ MD 12/11/19 BEL MARQUEZ MD Dec 11, 2019 00:27
[2019-12-11] MEDS ORDERED: methylPREDNISolone 125 MG (Solu-MEDROL) VIAL IVP ONE (00:30)
[2019-12-11] MEDS ORDERED: OXYC1TAB87 PO (01:26)
[2019-12-11] MEDS ORDERED: PRD20T PO (01:26)
[2019-12-11 01:34] VITALS: BP 107/66
== END 2019-12-11 01:36 | disposition home or self-care (01) ==
LOC: EDUNIT# 23:14 → ER 23:16
DX: M54.12 Radiculopathy, cervical region (principal); R53.1 Weakness; M62.838 Other muscle spasm; Z87.891 Personal history of nicotine dependence; Z82.49 Family history of ischemic heart disease and other diseases of the circulatory system
CPT/HCPCS: 96361; 96374; 96375

== ENCOUNTER → 2019-12-14 | Outpatient (CLI) | payer BC ==
[~2019-12-14] MED LIST changes: +DICL25TA PO; +ONDA4TAB11 PO; +OXYC1TAB87 PO
--- NOTE | 2019-12-14 09:15 | Diagnostic Imaging Report ---
PROCEDURE: MR imaging cervical spine without contrast. TECHNIQUE: Multiplanar, multisequence MR imaging of the cervical spine was performed without contrast. INDICATION: Neck pain. COMPARISON: None. FINDINGS: Normal alignment. Vertebral body heights are preserved. Normal bone marrow signal. No substantial spondylotic change. No neural impingement. No evidence for ligamentous injury. The visualized paravertebral soft tissues are unremarkable. There is an abnormal T2 hyperintensity in the dorsal left cervical cord at the level of C1 and C2 measuring approximately 0.5 cm in diameter and 1.2 cm in length. No other abnormal signal in the cervical spinal cord. IMPRESSION: 1. Abnormal T2 hyperintensity in the cervical cord at the level of C1-C2 measuring up to 1.2 cm. Findings are nonspecific and could be due to demyelination, infectious, possibly transverse myelitis or possibly a mass. Recommend contrast enhanced exam for further characterization. 2. No substantial spondylotic change or neural impingement in the cervical spine. Dictated by: Dictated on workstation # [id number]
== END ==
LOC: RAD 07:54
PROVIDERS: ATTEND Nurse Practitioner Family
DX: M54.2 Cervicalgia (principal); R20.0 Anesthesia of skin
CPT/HCPCS: 72141

== ENCOUNTER 2019-12-19 05:54 | Emergency (ER) | payer BC ==
[~2019-12-19] VITALS: Ht 165 cm; Wt 109.1 kg
[~2019-12-19 05:54] MED LIST changes: -DICL25TA PO; -ONDA4TAB11 PO
--- NOTE | 2019-12-19 06:53 | ED Neck-Back Pain/Injury ---
General Chief Complaint: General Problems/Pain Stated Complaint: NECK PAIN Source of Information: Patient Exam Limitations: No Limitations History of Present Illness Date Seen by Provider: Dec 19, 2019 Time Seen by Provider: 06:27 Initial Comments The patient presents to ER by private conveyance with chief complaint of 3 weeks of left-sided numbness with episodic attacks of sharp lancinating pain radiating from the base of her neck downwards towards her shoulder and left arm. She says the numbness is constant from her hairline down to her toes and involves her upper and lower extremity and left body. She does not have a primary care doctor but did get established recently with a [facility] in [facility] and they ordered an MRI of her head and neck. She has not got back with them for results. She's having no fevers or chills. The only recent trauma she had was in the end of July, 5 months ago. Her symptoms did not start till last 3 weeks. No familial history other than some diabetes in her mother. She has no other significant medical history. She does not use any other medications. She has tried tramadol which gave her no relief. She said Percocet gave only mild relief and she took her last dose at 4:00 this morning. She's having no nausea fever chills dysuria cough shortness of breath chest pain. She says whatever medications she received in the ER last time did help her pain. She does not use ibuprofen or Tylenol, topical creams muscle rubs. Muscle relaxants have not helped. Allergies and Home Medications Allergies Coded Allergies: No Known Drug Allergies (Unverified , 03/24/15) Home Medications Acetaminophen 500 Mg Tablet, 1,000 MG PO Q8HR Prescribed by: WILIAN RASHEED on 06/12/19 1039 Gabapentin 300 Mg Capsule, 300 MG PO BID Prescribed by: BEL PRADHAN on 12/03/19 0057 Ibuprofen 600 Mg Tablet, 600 MG PO Q6HR Prescribed by: WILIAN RASHEED on 06/12/19 1039 Methocarbamol 750 Mg Tablet, 750 MG PO Q4H PRN for PAIN-MODERATE (5-7) Prescribed by: LIDA FAIR on 12/01/19 1153 Oxycodone HCl/Acetaminophen 1 Each Tablet, 1 TAB PO Q4H PRN for PAIN- BREAKTHROUGH Prescribed by: BEL PRADHAN on 12/11/19 0126 Prednisone 20 Mg Tab, 40 MG PO DAILY Prescribed by: LIDA FAIR on 12/01/19 1153 Prednisone 20 Mg Tab, 40 MG PO DAILY Prescribed by: BEL PRADHAN on 12/11/19 0126 Vit No.124/Iron/FA 1 Each Tablet, 1 EACH PO DAILY, (Reported) Tramadol HCl 50 Mg Tablet, 50 MG PO Q6H PRN for PAIN-BREAKTHROUGH Prescribed by: BEL PRADHAN on 12/03/19 0057 Patient Home Medication List Home Medication List Reviewed: Yes Review of Systems Constitutional: No chills, No diaphoresis EENTM: No ear discharge, No ear pain Respiratory: No cough, No short of breath Cardiovascular: No chest pain, No edema Gastrointestinal: No abdominal pain, No nausea Genitourinary: No discharge, No dysuria Control/STD Prophylaxis: None Musculoskeletal: see HPI; No back pain; neck pain Psychiatric/Neurological: See HPI; Denies Anxiety, Denies Depressed; Numbness, Paresthesia, Weakness All Other Systems Reviewed Negative Unless Noted: Yes Past Smoxths-Lsiesf-Eywwqa Hx Patient Social History Alcohol Use: Denies Use Recreational Drug Use: No Smoking Status: Former Smoker Type Used: Cigarettes Former Smoker, Quit: Dec 01, 2009 2nd Hand Smoke Exposure: No Recent Foreign Travel: No Contact w/Someone Who Travel: No Recent Hopitalizations: No Immunizations Up To Date Tetanus Booster (TDap): Unknown PED Vaccines UTD: Yes Seasonal Allergies Seasonal Allergies: No Past Medical History Surgeries: Yes Appendectomy, Tubal Ligation Respiratory: No Cardiac: No Neurological: No 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 Disorders: No 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00" Weight: 260lbs. 0.6oz. 117.448998cg; 42.00 BMI Method:Stated General Appearance: WD/WN, Mild Distress HEENT: PERRL/EOMI, Pharynx Normal, Moist Mucous Membranes Neck: Full Range of Motion, Normal Inspection, Supple, Tender Lateral (left side insertion of the trapezius on the spine), Tender Midline (c2 through c5) Cardiovascular: Regular Rate, Rhythm, No Edema, Normal Peripheral Pulses Respiratory: Lungs Clear, Normal Breath Sounds, No Accessory Muscle Use, No Respiratory Distress Gastrointestinal: Normal Bowel Sounds, Non Tender, Soft Extremity: Normal Capillary Refill, Normal Inspection, No Pedal Edema Neurologic/Psychiatric: Alert, Oriented x3, Normal Mood/Affect, activity director II-XII Norm as Tested, Motor Weakness (supervisor blasting strength 4 out of 5 on the left versus 5 out of 5 on the right upper extremity. Leg raise 4 out of 5 left but plantar flexion and dorsiflexion are symmetric 5 out of 5 bilateral lower extremities. Patellar deep tendon reflexes 2 out of 4 without clonus.) Skin: Normal Color, Warm/Dry Progress/Results/Core Measures Results/Orders Lab Results Laboratory Tests Test 12/19/19 07:15 Range/Units White Blood Count 9.3 4.3-11.0 10^3/uL Red Blood Count 5.23 4.35-5.85 10^6/uL Hemoglobin 13.5 11.5-16.0 G/DL Hematocrit 42 35-52 % Mean Corpuscular Volume 80 80-99 FL Mean Corpuscular Hemoglobin 26 25-34 PG Mean Corpuscular Hemoglobin Concent 33 32-36 G/DL Red Cell Distribution Width 14.7 H 10.0-14.5 % Platelet Count 194 130-400 10^3/uL Mean Platelet Volume 11.8 H 7.4-10.4 FL Neutrophils (%) (Auto) 76 H 42-75 % Lymphocytes (%) (Auto) 18 12-44 % Monocytes (%) (Auto) 5 0-12 % Eosinophils (%) (Auto) 1 0-10 % Basophils (%) (Auto) 0 0-10 % Neutrophils # (Auto) 7.1 1.8-7.8 X 10^3 Lymphocytes # (Auto) 1.7 1.0-4.0 X 10^3 Monocytes # (Auto) 0.4 0.0-1.0 X 10^3 Eosinophils # (Auto) 0.1 0.0-0.3 10^3/uL Basophils # (Auto) 0.0 0.0-0.1 10^3/uL Erythrocyte Sedimentation Rate 1 0-20 MM/HR Sodium Level 139 135-145 MMOL/L Potassium Level 4.2 3.6-5.0 MMOL/L Chloride Level 105 98-107 MMOL/L Carbon Dioxide Level 21 21-32 MMOL/L Anion Gap 13 5-14 MMOL/L Blood Urea Nitrogen 15 7-18 MG/DL Creatinine 0.62 0.60-1.30 MG/DL Estimat Glomerular Filtration Rate > 60 BUN/Creatinine Ratio 24 Glucose Level 93 70-105 MG/DL Calcium Level 9.9 8.5-10.1 MG/DL Corrected Calcium 9.5 8.5-10.1 MG/DL Total Bilirubin 0.4 0.1-1.0 MG/DL Aspartate Amino Transf (AST/SGOT) 15 5-34 U/L Alanine Aminotransferase (ALT/SGPT) 22 0-55 U/L Alkaline Phosphatase 93 40-136 U/L C-Reactive Protein High Sensitivity 2.02 H 0.00-0.50 MG/DL Total Protein 8.0 6.4-8.2 GM/DL Albumin 4.5 3.2-4.5 GM/DL Serum Test, Qualitative NEGATIVE NEGATIVE My Orders Orders - WENDY LAN Ketorolac Injection (Toradol Injection) (12/19/19 07:00) Lorazepam Injection (Ativan Injection) (12/19/19 07:00) Cbc With Automated Diff (12/19/19 07:00) Comprehensive Metabolic Panel (12/19/19 07:00) Hs C Reactive Protein (12/19/19 07:00) Erythrocyte Sedimentation Rate (12/19/19 07:00) Hcg,Qualitative Serum (12/19/19 07:00) Ed Iv/Invasive Line Start (12/19/19 07:11) Medications Given in ED Current Medications Medications Dose Ordered Sig/Jane Route Start Time Stop Time Status Last Admin Dose Admin Ketorolac Tromethamine 30 mg ONCE ONCE IVP 12/19/19 07:00 12/19/19 07:03 DC 12/19/19 07:24 30 MG Lorazepam 0.5 mg ONCE ONCE IVP 12/19/19 07:00 12/19/19 07:03 DC 12/19/19 07:25 0.5 MG Vital Signs/I&O 12/19/19 06:45 Temp 36.9 Pulse 53 Resp 20 B/P (MAP) 128/101 (110) Pulse Ox 100 O2 Delivery Room Air Progress Progress Note #1: Time: 06:57 Progress Note Previous visits to the ER she had received Toradol, fentanyl, Norflex and received only marginal improvement. Ativan seemed to help her. Part of this could be panic and anxiety related to her poorly understood medical condition. Prior MRI was referenced showing a hyperintense lesion that would require further characterization with aN MRI with contrast. No evidence of subluxation o r stenosis. Differential includes infectious versus tumor versus demyelination. She has no evidence of an infection and if it was happening for 3 weeks in the spinal cord would've likely progress by now. We'll obtain some basic labs to include a ESR and CRP. We'll start with Toradol and half milligram of Ativan IV. She did not complain much benefit from the fentanyl from the past or Percocet today. Progress Note #2: Time: 08:20 Progress Note No significant elevated markers of inflammation or infection. Her pain is under much better control with Toradol and Ativan. Plan set her up with a couple days worth of Toradol when necessary, Percocet for back up and ondansetron for nausea. We'll get her an outpatient order form for MRI with IV contrast and have instructed her to send medical records to primary care at the [facility] in [facility] where she seeks primary care. We have instructed her to follow up for results with them and then pursue appropriate workup from there. The patient is in agreement with this plan. Departure Impression Primary Impression: Spinal cord lesion Additional Impressions: Paresthesias Nontraumatic neck pain Disposition: 01 HOME, SELF-CARE Condition: Improved Departure-Patient Inst. Decision time for Depature: 08:25 Referrals: NO,LOCAL PHYSICIAN (PCP/Family) Primary Care Physician Patient Instructions: Generalized Neck Pain (DC) Add. Discharge Instructions: You may present to medical records and have your MRI imaging faxed to your primary care office. You should call outpatient center and obtain preapproval and schedule an MRI of the cervical spine with IV contrast. If your pain comes back you may start with diclofenac one tablet every 8 hours for a maximum of 3 tablets a day no greater than 3 days in a row. Do not use ibuprofen, Motrin, Aleve, naproxen at the same time. If this does not control your pain you may use one tablet of Percocet every 4 hours as needed for breakthrough pain. You may use ondansetron one tablet every 6 hours as needed for nausea or vomiting. Drink plenty of fluids. Plan to follow up in the next 1-2 weeks with primary care for further workup of your problems. All discharge instructions reviewed with patient and/or family. Voiced understanding. Scripts Ondansetron (Ondansetron Odt) 4 Mg Tab.rapdis 4 MG PO Q6H PRN for NAUSEA/VOMITING-1ST LINE, #10 TAB 0 Refills Prov: WENDY LAN 12/19/19 Diclofenac Sodium (Diclofenac Sodium) 25 Mg Tablet.dr 25 MG PO Q8H PRN for PAIN-BREAKTHROUGH, #10 TAB 0 Refills Prov: WENDY LAN 12/19/19 Oxycodone HCl/Acetaminophen (Percocet 5-325 mg Tablet) 1 Each Tablet 1 TAB PO Q4H PRN for PAIN-BREAKTHROUGH MDD 6 TABS, #14 TAB 0 Refills Prov: WENDY LAN 12/19/19 WENDY LAN Dec 19, 2019 06:53
--- NOTE | 2019-12-19 06:56 | NUR ---
Report to SHRUTHI Lopez
[2019-12-19] MEDS ORDERED: KETOROLAC 30 MG/ML VIAL IVP ONE (07:00)
[2019-12-19] MEDS ORDERED: LORazepam INJ 2 MG/ML (ATIVAN) VIAL IVP ONE (07:00)
[2019-12-19 07:26] LABS: BASOPHILS % (AUTO) 0 % (0-10); EOSINOPHILS # (AUTO) 0.1 10^3/uL (0.0-0.3); EOSINOPHILS % (AUTO) 1 % (0-10); HEMATOCRIT 42 % (35-52); HEMOGLOBIN 13.5 G/DL (11.5-16.0); LYMPHOCYTES # (AUTO) 1.7 X 10^3 (1.0-4.0); LYMPHOCYTES % (AUTO) 18 % (12-44); MEAN CORPUSCULAR HEMOGLOBIN 26 PG (25-34); MEAN CORPUSCULAR HGB CONC 33 G/DL (32-36); MEAN CORPUSCULAR VOLUME 80 FL (80-99); MEAN PLATELET VOLUME 11.8 FL (7.4-10.4); MONOCYTES # (AUTO) 0.4 X 10^3 (0.0-1.0); MONOCYTES % (AUTO) 5 % (0-12); NEUTROPHILS # (AUTO) 7.1 X 10^3 (1.8-7.8); NEUTROPHILS % (AUTO) 76 % (42-75); PLATELET COUNT 194 10^3/uL (130-400); RED CELL DISTRIBUTION WIDTH 14.7 % (10.0-14.5); WHITE BLOOD COUNT 9.3 10^3/uL (4.3-11.0)
[2019-12-19 07:52] LABS: ALANINE AMINOTRANSFERASE 22 U/L (0-55); ALBUMIN 4.5 GM/DL (3.2-4.5); ALKALINE PHOSPHATASE 93 U/L (40-136); BILIRUBIN,TOTAL 0.4 MG/DL (0.1-1.0); BUN/CREATININE RATIO 24; CALCIUM 9.9 MG/DL (8.5-10.1); CARBON DIOXIDE 21 MMOL/L (21-32); CHLORIDE 105 MMOL/L (98-107); CREATININE SERUM 0.62 MG/DL (0.60-1.30); GFR ESTIMATED > 60; GLUCOSE 93 MG/DL (70-105); POTASSIUM 4.2 MMOL/L (3.6-5.0); SODIUM 139 MMOL/L (135-145)
--- NOTE | 2019-12-19 08:02 | NUR ---
PT RESTING IN BED ET DENIES NEEDS AT THIS TIME.
[2019-12-19 08:10] LABS: ERYTHROCYTE SEDIMENTATION RATE 1 MM/HR (0-20)
--- NOTE | 2019-12-19 08:14 | NUR ---
IN TALKING TO THE PT AT THIS TIME.
[2019-12-19] MEDS ORDERED: DICL25TA PO (08:35)
[2019-12-19] MEDS ORDERED: OXYC1TAB87 PO (08:35)
[2019-12-19] MEDS ORDERED: ONDA4TAB11 PO (08:35)
[2019-12-19 08:50] VITALS: BP 114/84
== END 2019-12-19 08:50 | disposition home or self-care (01) ==
LOC: EDUNIT# 05:54 → ER 05:56
DX: G95.9 Disease of spinal cord, unspecified (principal); R20.2 Paresthesia of skin; M54.2 Cervicalgia; Z87.891 Personal history of nicotine dependence; Z82.49 Family history of ischemic heart disease and other diseases of the circulatory system
CPT/HCPCS: 36415; 80053; 84703; 85025; 85652; 86141

== ENCOUNTER 2020-01-17 00:46 | Emergency (ER) | payer BC ==
[~2020-01-17] VITALS: Ht 162.5 cm; Wt 108.8 kg
[~2020-01-17 00:46] MED LIST changes: +DICL25TA PO; +ONDA4TAB11 PO
[2020-01-17 01:05] LABS: BILIRUBIN,URINE NEGATIVE (NEGATIVE); CLARITY,URINE CLOUDY; COLOR,URINE ORANGE; GLUCOSE, URINE (UA) NEGATIVE (NEGATIVE); KETONES,URINE NEGATIVE (NEGATIVE); LEUKOCYTE ESTERASE ,URINE 1+ (NEGATIVE); NITRITE,URINE POSITIVE (NEGATIVE); PH,URINE 5.5 (5-9); PROTEIN,URINE 3+ (NEGATIVE)
[2020-01-17 01:18] LABS: AMORPHOUS SEDIMENT,UR MOD AMOR URATES /LPF; BACTERIA,URINE MODERATE /HPF; RBC,URINE 0-2 /HPF; SQUAMOUS EPITHELIAL CELL,UR RARE /HPF; WBC,URINE 50-100 /HPF; YEAST,URINE FEW /HPF
[2020-01-17] MEDS ORDERED: NS IV 1000 ML 1,000 ML IV SCH (01:25)
[2020-01-17] MEDS ORDERED: KETOROLAC 30 MG/ML VIAL IVP ONE (01:30)
[2020-01-17] MEDS ORDERED: ONDANSETRON 4 MG/2 ML (SDV) Z0FRAN IVP ONE (01:30)
[2020-01-17] MEDS ORDERED: cefTRIAXone FOR IV USE 1,000 MG in WATER (STERILE) FOR INJECTION 10 ML IV ONE (01:30)
--- NOTE | 2020-01-17 01:40 | ED GU-Female ---
General Chief Complaint: - Urinary Stated Complaint: POSS UTI,VOMITING Nursing Triage Note: started tuesday sx of painf urination, taking azo drinking lots of water and cranberry juice at home. sx worsening tonight Nursing Sepsis Screen: No Definite Risk Source: patient Exam Limitations: no limitations History of Present Illness Date Seen by Provider: Jan 17, 2020 Time Seen by Provider: 00:52 Initial Comments This 29-year-old woman presents to the emergency room with concerns about possible urinary tract infection and/or ureteral stone. She started having symptoms on January 12 consisting of dysuria. She then developed left lower back and pelvic pain. Yesterday evening she began noticing blood in her urine and on the toilet paper. She has been trying to manage with Azo at home but pain has become intense. Her pain is colicky and has caused her to vomit once. She has no history of ureteral stones. She denies as she has had a tubal ligation. She has aseptic vital signs. Allergies and Home Medications Allergies Coded Allergies: No Known Drug Allergies (Unverified , 01/17/20) Home Medications Acetaminophen 500 Mg Tablet, 1,000 MG PO Q8HR Prescribed by: WILIAN RASHEED on 06/12/19 1039 Cephalexin 500 Mg Capsule, 500 MG PO QID Prescribed by: BEL PRADHAN on 01/17/20 022 Diclofenac Sodium 25 Mg Tablet.dr, 25 MG PO Q8H PRN for PAIN-BREAKTHROUGH Prescribed by: WENDY LAN on 12/19/19 0835 Gabapentin 300 Mg Capsule, 300 MG PO BID Prescribed by: BEL PRADHAN on 12/03/19 0057 Hyoscyamine Sulfate 0.125 Mg Tab.subl, 0.25 MG SL Q4H PRN for CRAMPS Prescribed by: BEL PRADHAN on 01/17/20 0223 Ibuprofen 600 Mg Tablet, 600 MG PO Q6HR Prescribed by: WILIAN RASHEED on 06/12/19 1039 Methocarbamol 750 Mg Tablet, 750 MG PO Q4H PRN for PAIN-MODERATE (5-7) Prescribed by: LIDA FAIR on 12/01/19 1153 Ondansetron 4 Mg Tab.rapdis, 4 MG PO Q6H PRN for NAUSEA/VOMITING-1ST LINE Prescribed by: WENDY LAN on 12/19/19 0835 Oxycodone HCl/Acetaminophen 1 Each Tablet, 1 TAB PO Q4H PRN for PAIN- BREAKTHROUGH Prescribed by: BEL PRADHAN on 12/11/19 0126 Oxycodone HCl/Acetaminophen 1 Each Tablet, 1 TAB PO Q4H PRN for PAIN- BREAKTHROUGH Prescribed by: WENDY LAN on 12/19/19 0835 Prednisone 20 Mg Tab, 40 MG PO DAILY Prescribed by: LIDA FAIR on 12/01/19 1153 Prednisone 20 Mg Tab, 40 MG PO DAILY Prescribed by: BEL PRADHAN on 12/11/19 0126 Vit No.124/Iron/FA 1 Each Tablet, 1 EACH PO DAILY, (Reported) Tramadol HCl 50 Mg Tablet, 50 MG PO Q6H PRN for PAIN-BREAKTHROUGH Prescribed by: BEL PRADHAN on 12/03/19 0057 Patient Home Medication List Home Medication List Reviewed: Yes Review of Systems Review of Systems Constitutional: no symptoms reported EENTM: no symptoms reported Respiratory: no symptoms reported Cardiovascular: no symptoms reported Gastrointestinal: see HPI Genitourinary: see HPI : No Musculoskeletal: no symptoms reported Skin: no symptoms reported Psychiatric/Neurological: No Symptoms Reported Endocrine: No Symptoms Reported Hematologic/Lymphatic: No Symptoms Reported Past Lgmwjyf-Uzahgy-Qrwvqn Hx Past Med/Social Hx: Reviewed Nursing Past Med/Soc Hx Patient Social History Alcohol Use: Denies Use Recreational Drug Use: No Type Used: Cigarettes Former Smoker, Quit: Dec 01, 2009 2nd Hand Smoke Exposure: No Recent Foreign Travel: No Contact w/Someone Who Travel: No Recent Infectious Disease Expo: No Recent Hopitalizations: No Physical Abuse: No Sexual Abuse: No Mistreated: No Immunizations Up To Date Tetanus Booster (TDap): Unknown PED Vaccines UTD: Yes Seasonal Allergies Seasonal Allergies: No Past Medical History Surgeries: Yes Appendectomy, Tubal Ligation Respiratory: No Cardiac: No Neurological: No 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 Disorders: No [employer]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 Genitourinary: No Gastrointestinal: No Musculoskeletal: Yes (cervical radiculopathy) Endocrine: No HEENT: No Cancer: No Psychosocial: No Integumentary: No Blood Disorders: No Adverse Reaction/Blood Tranf: No Family Medical History Reviewed Nursing Family Hx Cardiovascular disease GRANDFATHER, MATERNAL Diabetes mellitus GRANDMOTHER, MATERNAL FH: Crohn's disease GRANDMOTHER, MATERNAL 19 MOTHER No Pertinent Family Hx Physical Exam Vital Signs Vital Signs - First Documented 01/17/20 01/17/20 00:55 02:35 Temp 36.7 Pulse 88 Resp 20 B/P (MAP) 132/77 (95) Pulse Ox 95 Capillary Refill : Less Than 3 Seconds Height, Weight, BMI Height: 5'4.00" Weight: 260lbs. 0.6oz. 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, no motor/sensory deficits, alert, normal mood/affect, oriented x 3 Skin: normal color, warm/dry Progress/Results/Core Measures Suspected Sepsis Recent Fever Within 48 Hours: No Infection Criteria Present: None New/Unexplained Altered Menta: No Sepsis Screen: No Definite Risk SIRS Temperature: Pulse: 88 Respiratory Rate: 20 Laboratory Tests 01/17/20 01:31: White Blood Count 11.0 Blood Pressure 132 /77 Mean: 95 Laboratory Tests 01/17/20 01:31: Creatinine 0.70, Platelet Count 202, Total Bilirubin 0.3 Results/Orders Lab Results Laboratory Tests Test 01/17/20 00:55 01/17/20 01:31 Range/Units Urine Color ORANGE Urine Clarity CLOUDY Urine pH 5.5 5-9 Urine Specific [place] >=1.030 1.016-1.022 Urine Protein 3+ H NEGATIVE Urine Glucose (UA) NEGATIVE NEGATIVE Urine Ketones NEGATIVE NEGATIVE Urine Nitrite POSITIVE H NEGATIVE Urine Bilirubin NEGATIVE NEGATIVE Urine Urobilinogen 1.0 < = 1.0 MG/DL Urine Leukocyte Esterase 1+ H NEGATIVE Urine RBC (Auto) 2+ H NEGATIVE Urine RBC 0-2 /HPF Urine WBC 50-100 H /HPF Urine Squamous Epithelial Cells RARE /HPF Urine Crystals PRESENT H /LPF Urine Amorphous Sediment MOD TYREE URATES H /LPF Urine Bacteria MODERATE H /HPF Urine Casts NONE /LPF Urine Mucus SMALL H /LPF Urine Yeast FEW H /HPF Urine Culture Indicated YES Urine Test NEGATIVE NEGATIVE White Blood Count 11.0 4.3-11.0 10^3/uL Red Blood Count 4.66 4.35-5.85 10^6/uL Hemoglobin 12.2 11.5-16.0 G/DL Hematocrit 38 35-52 % Mean Corpuscular Volume 81 80-99 FL Mean Corpuscular Hemoglobin 26 25-34 PG Mean Corpuscular Hemoglobin Concent 32 32-36 G/DL Red Cell Distribution Width 15.0 H 10.0-14.5 % Platelet Count 202 130-400 10^3/uL Mean Platelet Volume 11.8 H 7.4-10.4 FL Neutrophils (%) (Auto) 80 H 42-75 % Lymphocytes (%) (Auto) 14 12-44 % Monocytes (%) (Auto) 6 0-12 % Eosinophils (%) (Auto) 1 0-10 % Basophils (%) (Auto) 0 0-10 % Neutrophils # (Auto) 8.8 H 1.8-7.8 X 10^3 Lymphocytes # (Auto) 1.5 1.0-4.0 X 10^3 Monocytes # (Auto) 0.6 0.0-1.0 X 10^3 Eosinophils # (Auto) 0.1 0.0-0.3 10^3/uL Basophils # (Auto) 0.0 0.0-0.1 10^3/uL Sodium Level 140 135-145 MMOL/L Potassium Level 4.0 3.6-5.0 MMOL/L Chloride Level 105 98-107 MMOL/L Carbon Dioxide Level 22 21-32 MMOL/L Anion Gap 13 5-14 MMOL/L Blood Urea Nitrogen 16 7-18 MG/DL Creatinine 0.70 0.60-1.30 MG/DL Estimat Glomerular Filtration Rate > 60 BUN/Creatinine Ratio 23 Glucose Level 106 H 70-105 MG/DL Calcium Level 9.3 8.5-10.1 MG/DL Corrected Calcium 9.1 8.5-10.1 MG/DL Total Bilirubin 0.3 0.1-1.0 MG/DL Aspartate Amino Transf (AST/SGOT) 14 5-34 U/L Alanine Aminotransferase (ALT/SGPT) 18 0-55 U/L Alkaline Phosphatase 88 40-136 U/L C-Reactive Protein High Sensitivity 4.19 H 0.00-0.50 MG/DL Total Protein 7.5 6.4-8.2 GM/DL Albumin 4.3 3.2-4.5 GM/DL My Orders Orders - BEL MARQUEZ MD Ua Culture If Indicated (01/17/20 00:52) Hcg,Qualitative Urine (01/17/20 01:08) Urine Culture (01/17/20 00:55) Ketorolac Injection (Toradol Injection) (01/17/20 01:30) Ondansetron Injection (Zofran Injectio (01/17/20 01:30) Ns Iv 1000 Ml (Sodium Chloride 0.9%) (01/17/20 01:25) Cbc With Automated Diff (01/17/20 01:25) Comprehensive Metabolic Panel (01/17/20 01:25) Hs C Reactive Protein (01/17/20 01:25) Ceftriaxone For Iv Use (Rocephin For I (01/17/20 01:30) Ct Abd/Pelvis Wo(Kidney Stone) (01/17/20 01:26) Ed Iv/Invasive Line Start (01/17/20 01:39) Hyoscyamine Sl Tablet (Levsin Sl Tablet) (01/17/20 02:15) Medications Given in ED Current Medications Medications Dose Ordered Sig/Jane Route Start Time Stop Time Status Last Admin Dose Admin Ceftriaxone Sodium 1000 mg/ Sterile Water 10 ml @ 200 mls/hr ONCE ONCE IV 01/17/20 01:30 01/17/20 01:32 DC 01/17/20 01:35 200 MLS/HR Hyoscyamine Sulfate 0.25 mg ONCE ONCE SL 01/17/20 02:15 01/17/20 02:16 DC 01/17/20 02:17 0.25 MG Ketorolac Tromethamine 30 mg ONCE ONCE IVP 01/17/20 01:30 01/17/20 01:31 DC 01/17/20 01:35 30 MG Ondansetron HCl 8 mg ONCE ONCE IVP 01/17/20 01:30 01/17/20 01:31 DC 01/17/20 01:35 8 MG Vital Signs/I&O 01/17/20 01/17/20 00:55 02:35 Temp 36.7 Pulse 88 73 Resp 20 18 B/P (MAP) 132/77 (95) 101/59 (95) Pulse Ox 95 Capillary Refill : Less Than 3 Seconds Blood Pressure Mean: 95 Progress Note #1: Time: 01:39 Progress Note Urinalysis demonstrated evidence of infection but no blood. However, in the meantime her pain has been escalating. I'm concerned that she may have a ureteral stone associated with this infection. In light of her escalating pain and offered treatment with IV fluids, Zofran, and Toradol as well as evaluation with blood work and CT scan. Patient is agreeable. We did discuss risks and benefits of CT scan prior to ordering. Progress Note #2: Progress Note CT showed evidence of cystitis but no obstructive uropathy. Patient was treated with Rocephin, Toradol, and IV fluids and then dismissed. Diagnostic Imaging Diagonstic Imaging: CT Plain Films/CT/US/NM/MRI: abdomen, pelvis Comments CT abdomen and pelvis viewed by me and [facility] report reviewed. There was evidence of cystitis but no evidence of obstructive uropathy. Departure Impression Primary Impression: Urinary tract infection Qualified Codes: N39.0 - Urinary tract infection, site not specified Additional Impressions: Left lower quadrant pain Cystitis Disposition: HOME, SELF-CARE Condition: Improved Departure-Patient Inst. Decision time for Depature: 02:19 Referrals: NO,LOCAL PHYSICIAN (PCP/Family) Primary Care Physician Patient Instructions: Acute Cystitis (DC), Urinary Tract Infection, Adult (DC) Add. Discharge Instructions: Drink plenty of clear liquids. Complete your antibiotic as prescribed. Follow-up with a primary care provider on Tuesday to review urine culture results. If you are not improving as expected over the weekend you may call the emergency room to check on your urine culture results. Results should be available by Tuesday. You may use Tylenol (acetaminophen) (up to 1000 mg every 6 hours as needed for pain. You may add ibuprofen up to 600 mg every 6 hours as needed for additional pain relief. Levsin (hyoscyamine) may be used for bladder spasm. Return to the emergency room if you have worsening symptoms despite following these treatment measures. All discharge instructions reviewed with patient and/or family. Voiced understanding. Scripts Cephalexin (Keflex) 500 Mg Capsule 500 MG PO QID, #28 CAP Prov: BEL MARQUEZ MD 01/17/20 Hyoscyamine Sulfate (Levsin-Sl) 0.125 Mg Tab.subl 0.25 MG SL Q4H PRN for CRAMPS, #10 TAB 0 Refills Prov: BEL MARQUEZ MD 01/17/20 BEL MARQUEZ MD Jan 17, 2020 01:40
[2020-01-17 01:41] LABS: BASOPHILS % (AUTO) 0 % (0-10); EOSINOPHILS # (AUTO) 0.1 10^3/uL (0.0-0.3); EOSINOPHILS % (AUTO) 1 % (0-10); HEMATOCRIT 38 % (35-52); HEMOGLOBIN 12.2 G/DL (11.5-16.0); LYMPHOCYTES # (AUTO) 1.5 X 10^3 (1.0-4.0); LYMPHOCYTES % (AUTO) 14 % (12-44); MEAN CORPUSCULAR HEMOGLOBIN 26 PG (25-34); MEAN CORPUSCULAR HGB CONC 32 G/DL (32-36); MEAN CORPUSCULAR VOLUME 81 FL (80-99); MEAN PLATELET VOLUME 11.8 FL (7.4-10.4); MONOCYTES # (AUTO) 0.6 X 10^3 (0.0-1.0); MONOCYTES % (AUTO) 6 % (0-12); NEUTROPHILS # (AUTO) 8.8 X 10^3 (1.8-7.8); NEUTROPHILS % (AUTO) 80 % (42-75); PLATELET COUNT 202 10^3/uL (130-400)
[2020-01-17 01:58] LABS: ALANINE AMINOTRANSFERASE 18 U/L (0-55); ALBUMIN 4.3 GM/DL (3.2-4.5); ALKALINE PHOSPHATASE 88 U/L (40-136); BILIRUBIN,TOTAL 0.3 MG/DL (0.1-1.0); BUN/CREATININE RATIO 23; CALCIUM 9.3 MG/DL (8.5-10.1); CARBON DIOXIDE 22 MMOL/L (21-32); CHLORIDE 105 MMOL/L (98-107); GFR ESTIMATED > 60; GLUCOSE 106 MG/DL (70-105); SODIUM 140 MMOL/L (135-145); TOTAL PROTEIN 7.5 GM/DL (6.4-8.2)
[2020-01-17] MEDS ORDERED: HYOSCYAMINE 0.125 MG (LEVSIN) TAB SL ONE (02:15)
[2020-01-17] MEDS ORDERED: HYOS0.1283 SL (02:23)
[2020-01-17] MEDS ORDERED: CEPH-507 PO (02:23)
[2020-01-17 02:35] VITALS: BP 101/59
--- NOTE | 2020-01-17 07:24 | Diagnostic Imaging Report ---
PROCEDURE: CT urinary tract, rule out kidney stone. TECHNIQUE: Multiple contiguous axial images were obtained through the abdomen and pelvis without the use of intravenous contrast. Auto Exposure Controls were utilized during the CT exam to meet ALARA standards for radiation dose reduction. INDICATION: Hematuria, painful urination COMPARISON: None available FINDINGS: The visualized lung bases are clear. The unenhanced liver and spleen are unremarkable. The adrenal glands are unremarkable. The pancreas is unremarkable. The gallbladder is unremarkable. Mild prominence of the left renal collecting system and left ureter with associated minimal left periureteral fat stranding. No obstructing calculus identified. The right kidney and right ureter are unremarkable. The urinary bladder is predominantly decompressed. Mild mural thickening of the urinary bladder. The uterus and adnexal structures are unremarkable for age. Bilateral tubal ligation. No evidence to suggest acute appendicitis. No bowel obstruction or pneumatosis. No significant adenopathy, free air, or free fluid within the abdomen or pelvis. No acute osseous abnormality. IMPRESSION: Minimal prominence of the left renal collecting system and left ureter with associated mild left periureteral fat stranding. Findings may relate to a recently passed calculus. However, no definite calculus is visualized. Alternatively, this could relate to superimposed mild infectious or inflammatory process. Mural thickening of the urinary bladder, favored related to poor distention, though cystitis would appear similar. Recommend correlation with urinalysis. Report was faxed/called to [facility] ER by alejandro at 7:23 am. YONATAN Marcano, was also notified. Dictated by: Dictated on workstation # [id number]
== END 2020-01-17 02:35 | disposition home or self-care (01) ==
LOC: EDUNIT# 00:46 → ER 00:50
DX: N39.0 Urinary tract infection, site not specified (principal); Z87.891 Personal history of nicotine dependence; Z90.49 Acquired absence of other specified parts of digestive tract; Z98.51 Tubal ligation status; Z82.49 Family history of ischemic heart disease and other diseases of the circulatory system
CPT/HCPCS: 36415; 74176; 80053; 81000; 84703; 85025; 86141; 87077; 87088; 87186

== ENCOUNTER → 2020-03-13 | Outpatient (CLI) | payer BC ==
[~2020-03-13] MED LIST changes: +CEPH-507 PO; +GADOBUTROL 10 MMOL/10 ML (GADAVIST) VIAL IV ONE; +HYOS0.1283 SL
--- NOTE | 2020-03-13 16:13 | Diagnostic Imaging Report ---
PROCEDURE: MR imaging of the brain with and without contrast. TECHNIQUE: Multiplanar, multisequence MR imaging of the brain was performed with and without contrast. INDICATION: Abnormal noncontrast MR cervical spine. History of numbness to the left arm and hand. Left-sided weakness. COMPARISON: MR dated 12/14/2019. FINDINGS: There is no acute infarct. Postcontrast images show no abnormal areas of enhancement. There are however multiple abnormal spherical and ellipsoid T2/FLAIR-bright foci primarily within the subcortical portions of the deep white matter of the left cerebral hemisphere. There is 1.2 cm FLAIR-bright focus within the right occipital lobe near the posterior horn of the right lateral ventricle. There is no corresponding abnormal enhancement or diffusion. There is no mass effect or midline shift. No evidence of intra or extra-axial intracranial hemorrhage is seen. Ventricles and cortical sulci are within normal limits. Major expected intracranial flow voids are identified. No focal calvarial lesions are seen. Paranasal sinuses and mastoid air cells are clear. IMPRESSION: 1. Multiple abnormal T2/FLAIR-bright foci within the periventricular and subcortical deep white matter. Given patient's age and pattern, this does raise concern for underlying demyelinating process such as multiple sclerosis. Correlation with CSF flow studies is advised. 2. No evidence of active demyelination. 3. No acute infarct, mass, nor hemorrhage. Dictated by: Dictated on workstation # [id number]
--- NOTE | 2020-03-13 18:01 | Diagnostic Imaging Report ---
CLINICAL INDICATION: Patient is having numbness in left arm and hand and left-sided weakness. EXAM: MRI of the cervical spine performed without and with 10 cc of Gadavist IV gadolinium. Sequences include sagittal T2, sagittal T1, sagittal T2 fat-sat, sagittal FLAIR, axial gradient echo, axial T2, axial T1, sagittal T1 fat-sat post IV contrast, and axial T1 post IV contrast. COMPARISON: MRI of the cervical spine without contrast dated 12/14/2019. FINDINGS: There is motion and CSF flow artifact which obscures portions of the cervical spinal cord. Again seen intramedullary area of increased T2 signal involving the cervical cord at C2 vertebral body level. This area measures roughly 5 mm in greatest axial dimension, but now measures 1.5 cm in craniocaudal dimension which has slightly increased size. There is no associated IV contrast enhancement. This area previously measured 5 mm in greatest axial dimension and 12 mm in greatest craniocaudal dimension. There is a small area of increased T2 signal seen involving the left side of the geovany which has not significantly changed in the interim. There is no abnormal IV contrast enhancement seen on this exam. Cervical spine is otherwise unremarkable. There is no significant disk bulge. Disk space heights are preserved. There is no significant central spinal canal or neural foramen narrowing. There is no significant paraspinal soft tissue abnormality. IMPRESSION: 1: There is slightly increased size of the abnormal increased T2 intramedullary signal involving the cervical cord at the C2 level. There is no associated IV contrast enhancement. Primary concern is for a demyelinating process. 2: There is no significant change to the small area of increased T2 signal involving the left side of the geovany which may also be related to demyelinating process. Correlation to MRI of the brain with and without contrast would help better evaluate. 3: The remainder of this exam is unremarkable. Dictated by: Dictated on workstation # [id number]
== END ==
LOC: RAD 14:23
PROVIDERS: ATTEND Neurological Surgery
DX: G37.9 Demyelinating disease of central nervous system, unspecified (principal)
CPT/HCPCS: 70553; 72156

== ENCOUNTER → 2020-04-30 | Outpatient (CLI) | payer BC ==
[~2020-04-30] MED LIST changes: -GADOBUTROL 10 MMOL/10 ML (GADAVIST) VIAL IV ONE
[2020-04-30 08:39] LABS: BILIRUBIN,URINE NEGATIVE (NEGATIVE); CLARITY,URINE CLEAR; COLOR,URINE YELLOW; GLUCOSE, URINE (UA) NEGATIVE (NEGATIVE); KETONES,URINE NEGATIVE (NEGATIVE); LEUKOCYTE ESTERASE ,URINE TRACE (NEGATIVE); NITRITE,URINE NEGATIVE (NEGATIVE); PROTEIN,URINE NEGATIVE (NEGATIVE)
[2020-04-30 08:50] LABS: CHLORIDE 106 MMOL/L (98-107); POTASSIUM 4.3 MMOL/L (3.6-5.0); SODIUM 138 MMOL/L (135-145)
[2020-04-30 08:51] LABS: ALBUMIN 4.1 GM/DL (3.2-4.5); BACTERIA,URINE TRACE /HPF
[2020-04-30 08:52] LABS: CALCIUM 9.3 MG/DL (8.5-10.1)
[2020-04-30 08:53] LABS: GLUCOSE 91 MG/DL (70-105); TOTAL PROTEIN 7.3 GM/DL (6.4-8.2); TRIGLYCERIDES 65 MG/DL (<150); VLDL CHOLESTEROL 13 MG/DL (5-40)
[2020-04-30 08:54] LABS: CARBON DIOXIDE 24 MMOL/L (21-32)
[2020-04-30 08:55] LABS: BILIRUBIN,TOTAL 0.4 MG/DL (0.1-1.0)
[2020-04-30 08:57] LABS: ALKALINE PHOSPHATASE 93 U/L (40-136); CREATININE SERUM 0.59 MG/DL (0.60-1.30); GFR ESTIMATED > 60
[2020-04-30 08:58] LABS: BUN/CREATININE RATIO 19; CHOLESTEROL 160 MG/DL (< 200)
[2020-04-30 08:59] LABS: HDL CHOLESTEROL 53 MG/DL (40-60)
[2020-04-30 09:00] LABS: ALANINE AMINOTRANSFERASE 46 U/L (0-55)
== END ==
LOC: LAB 08:08
PROVIDERS: ATTEND Nurse Practitioner Family
DX: Z00.00 Encounter for general adult medical examination without abnormal findings (principal); G35 Multiple sclerosis; L65.9 Nonscarring hair loss, unspecified; R68.89 Other general symptoms and signs; R00.0 Tachycardia, unspecified
CPT/HCPCS: 36415; 80053; 80061; 81000; 84436; 84443; 84480; 85025

== ENCOUNTER 2020-08-27 18:12 | Emergency (ER) | payer BC ==
[~2020-08-27] VITALS: Ht 162.5 cm; Wt 109.0 kg
--- NOTE | 2020-08-27 18:25 | ED Neurological Problem ---
General Stated Complaint: SYNCOPE;HEAD INJURY;NUMBNESS OF LEFT LEG Source: patient History of Present Illness Date Seen by Provider: Aug 27, 2020 Time Seen by Provider: 18:25 Initial Comments 30-year-old female presents following syncope. Patient reports has a history of MS and get herself shots 3 times a week on Tuesday and Tuesday. She reports that she gave herself a shot in the right thigh and had a syncopal event. She reports she also takes the medication. States she normally does not take the medication which she gives herself a shot. This is not a new batch of medication. She's never had a previous reaction like this. Patient has some mild pain in her neck or head. She reports that she hit her head when she passed out. She denied any chest pain, nausea vomiting fevers chills shortness of breath prior to the shot. Patient reports his symptoms are resolved outside of some pain in her head and her posterior neck from the fall. Allergies and Home Medications Allergies Coded Allergies: No Known Drug Allergies (Unverified , 01/17/20) Home Medications Acetaminophen 500 Mg Tablet, 1,000 MG PO Q8HR Prescribed by: WILIAN RASHEED on 06/12/19 1039 Cephalexin 500 Mg Capsule, 500 MG PO QID Prescribed by: BEL PRADHAN on 01/17/20 022 Diclofenac Sodium 25 Mg Tablet.dr, 25 MG PO Q8H PRN for PAIN-BREAKTHROUGH Prescribed by: WENDY LAN on 12/19/19 0835 Gabapentin 300 Mg Capsule, 300 MG PO BID Prescribed by: BEL PRADHAN on 12/03/19 0057 Hyoscyamine Sulfate 0.125 Mg Tab.subl, 0.25 MG SL Q4H PRN for CRAMPS Prescribed by: BEL PRADHAN on 01/17/20 022 Ibuprofen 600 Mg Tablet, 600 MG PO Q6HR Prescribed by: WILIAN RASHEED on 06/12/19 1039 Methocarbamol 750 Mg Tablet, 750 MG PO Q4H PRN for PAIN-MODERATE (5-7) Prescribed by: LIDA FAIR on 12/01/19 1153 Ondansetron 4 Mg Tab.rapdis, 4 MG PO Q6H PRN for NAUSEA/VOMITING-1ST LINE Prescribed by: WENDY LAN on 12/19/19 0835 Oxycodone HCl/Acetaminophen 1 Each Tablet, 1 TAB PO Q4H PRN for PAIN- BREAKTHROUGH Prescribed by: BEL PRADHAN on 12/11/19 0126 Oxycodone HCl/Acetaminophen 1 Each Tablet, 1 TAB PO Q4H PRN for PAIN- BREAKTHROUGH Prescribed by: WENDY LAN on 12/19/19 0835 Prednisone 20 Mg Tab, 40 MG PO DAILY Prescribed by: LIDA FAIR on 12/01/19 1153 Prednisone 20 Mg Tab, 40 MG PO DAILY Prescribed by: BEL PRADHAN on 12/11/19 0126 Vit No.124/Iron/FA 1 Each Tablet, 1 EACH PO DAILY, (Reported) Tramadol HCl 50 Mg Tablet, 50 MG PO Q6H PRN for PAIN-BREAKTHROUGH Prescribed by: BEL PRADHAN on 12/03/19 0057 Patient Home Medication List Home Medication List Reviewed: Yes Review of Systems Review of Systems Constitutional: No chills, No diaphoresis, No fever, No weakness Ears, Nose, Mouth, Throat: no symptoms reported Respiratory: No cough, No short of breath, No wheezing Cardiovascular: No chest pain, No palpitations Gastrointestinal: No abdominal pain, No nausea, No vomiting Musculoskeletal: see HPI Skin: no symptoms reported Psychiatric/Neurological: See HPI Past Xtlwnro-Wcmwvx-Ktgupx Hx Past Med/Social Hx: Reviewed Nursing Past Med/Soc Hx Patient Social History Type Used: Cigarettes Former Smoker, Quit: Dec 01, 2009 2nd Hand Smoke Exposure: No Recent Foreign Travel: No Contact w/Someone Who Travel: No Recent Hopitalizations: No Immunizations Up To Date Tetanus Booster (TDap): Unknown PED Vaccines UTD: Yes Seasonal Allergies Seasonal Allergies: No Past Medical History Surgeries: Yes Appendectomy, Tubal Ligation Respiratory: No Cardiac: No Neurological: No 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 Genitourinary: No Gastrointestinal: No Musculoskeletal: Yes (cervical radiculopathy) Endocrine: No HEENT: No Cancer: No Psychosocial: No Integumentary: No Blood Disorders: No Adverse Reaction/Blood Tranf: No Family Medical History Cardiovascular disease GRANDFATHER, MATERNAL Diabetes mellitus GRANDMOTHER, MATERNAL FH: Crohn's disease GRANDMOTHER, MATERNAL 19 MOTHER No Pertinent Family Hx Physical Exam Vital Signs Vital Signs - First Documented 08/27/20 18:17 Temp 36.7 Pulse 87 Resp 18 B/P (MAP) 126/87 (100) Pulse Ox 97 O2 Delivery Room Air Capillary Refill : Height, Weight, BMI Height: 5'4.00" Weight: 260lbs. 0.6oz. 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, no motor/sensory deficits, alert, normal mood/affect, oriented x 3 Crainal Nerves: normal hearing, normal speech, PERRL Coordination/Gait: normal gait Motor/Sensory: no motor deficit, no sensory deficit Skin: normal color, warm/dry Progress/Results/Core Measures Results/Orders Lab Results Laboratory Tests Test 08/27/20 18:30 08/27/20 18:58 Range/Units White Blood Count 9.1 4.3-11.0 10^3/uL Red Blood Count 4.70 3.80-5.11 10^6/uL Hemoglobin 11.7 11.5-16.0 g/dL Hematocrit 38 35-52 % Mean Corpuscular Volume 80 80-99 fL Mean Corpuscular Hemoglobin 25 25-34 pg Mean Corpuscular Hemoglobin Concent 31 L 32-36 g/dL Red Cell Distribution Width 14.3 10.0-14.5 % Platelet Count 193 130-400 10^3/uL Mean Platelet Volume 12.0 9.0-12.2 fL Immature Granulocyte % (Auto) 2 % Neutrophils (%) (Auto) 71 42-75 % Lymphocytes (%) (Auto) 25 12-44 % Monocytes (%) (Auto) 1 0-12 % Eosinophils (%) (Auto) 1 0-10 % Basophils (%) (Auto) 0 0-10 % Neutrophils # (Auto) 6.4 1.8-7.8 10^3/uL Lymphocytes # (Auto) 2.3 1.0-4.0 10^3/uL Monocytes # (Auto) 0.1 0.0-1.0 10^3/uL Eosinophils # (Auto) 0.1 0.0-0.3 10^3/uL Basophils # (Auto) 0.0 0.0-0.1 10^3/uL Immature Granulocyte # (Auto) 0.2 H 0.0-0.1 10^3/uL Sodium Level 138 135-145 MMOL/L Potassium Level 3.7 3.6-5.0 MMOL/L Chloride Level 105 98-107 MMOL/L Carbon Dioxide Level 23 21-32 MMOL/L Anion Gap 10 5-14 MMOL/L Blood Urea Nitrogen 13 7-18 MG/DL Creatinine 0.62 0.60-1.30 MG/DL Estimat Glomerular Filtration Rate > 60 BUN/Creatinine Ratio 21 Glucose Level 96 70-105 MG/DL Calcium Level 8.9 8.5-10.1 MG/DL Corrected Calcium 8.7 8.5-10.1 MG/DL Total Bilirubin 0.3 0.1-1.0 MG/DL Aspartate Amino Transf (AST/SGOT) 25 5-34 U/L Alanine Aminotransferase (ALT/SGPT) 27 0-55 U/L Alkaline Phosphatase 79 40-136 U/L Troponin I < 0.028 <0.028 NG/ML Total Protein 7.4 6.4-8.2 GM/DL Albumin 4.3 3.2-4.5 GM/DL Urine Color YELLOW Urine Clarity SL CLOUDY Urine pH 6.5 5-9 Urine Specific [place] >=1.030 1.016-1.022 Urine Protein 3+ H NEGATIVE Urine Glucose (UA) NEGATIVE NEGATIVE Urine Ketones NEGATIVE NEGATIVE Urine Nitrite NEGATIVE NEGATIVE Urine Bilirubin NEGATIVE NEGATIVE Urine Urobilinogen 0.2 < = 1.0 MG/DL Urine Leukocyte Esterase NEGATIVE NEGATIVE Urine RBC (Auto) NEGATIVE NEGATIVE Urine RBC RARE /HPF Urine WBC 0-2 /HPF Urine Squamous Epithelial Cells 2-5 /HPF Urine Crystals PRESENT H /LPF Urine Amorphous Sediment FEW TYREE URATES H /LPF Urine Bacteria TRACE /HPF Urine Casts PRESENT /LPF Urine Hyaline Casts 2-5 H /LPF Urine Granular Casts 10-25 H /LPF Urine Mucus NEGATIVE /LPF Urine Culture Indicated NO My Orders Orders - CHAVEZ,TIM L DO Ct Head/Cervical Spine Wo (08/27/20 18:25) Chest 1 View, Ap/Pa Only (08/27/20 18:25) Cbc With Automated Diff (08/27/20 18:25) Comprehensive Metabolic Panel (08/27/20 18:25) Troponin I (08/27/20 18:25) Ua Culture If Indicated (08/27/20 18:25) Ekg Tracing (08/27/20 18:40) Vital Signs/I&O 08/27/20 18:17 Temp 36.7 Pulse 87 Resp 18 B/P (MAP) 126/87 (100) Pulse Ox 97 O2 Delivery Room Air Initial ECG Impression Date: Aug 27, 2020 Initial ECG Impression Time: 18:23 Initial ECG Rate: 86 Initial ECG Rhythm: Normal Sinus Initial ECG Intervals: Normal Initial ECG Impression: Normal Diagnostic Imaging Diagonstic Imaging: Xray, CT Plain Films/CT/US/NM/MRI: chest, c-spine, head Comments [facility], [place] NAME: HÉCTOR GUERRERO [facility] REC#: [id number] PT STATUS: REG ER : 1990 PHYSICIAN: TIM CHAVEZ DO ADMIT DATE: 08/27/20/ER Draft Date of Exam:08/27/20 CT HEAD/CERVICAL SPINE WO PROCEDURE: CT head and CT cervical spine without contrast. TECHNIQUE: Multiple contiguous axial images were obtained through the brain and cervical spine without the use of intravenous contrast. Sagittal and coronal reformations through the cervical spine were then performed. Auto Exposure Controls were utilized during the CT exam to meet ALARA standards for radiation dose reduction. INDICATION: Fall with head injury and neck pain CT HEAD: CT images of the head were obtained. FINDINGS: Ventricles and sulci are within normal limits for size. There is no intracranial hemorrhage identified. There is no abnormal mass effect or shift of midline structures. There is a mucous retention cyst or polyp present within the right maxillary sinus. IMPRESSION: No CT evidence of acute intracranial abnormality. If there is continued concern for intracranial abnormality, consideration could be given to MRI followup for assessment. CT CERVICAL SPINE: Multiple contiguous axial CT images of the cervical spine were obtained with sagittal and coronal reformatted images produced. FINDINGS: There is loss of normal cervical lordosis. Vertebral body heights and disc spaces are maintained. Prevertebral soft tissues are unremarkable, and there is no evidence of paraspinous hematoma. There is a 1.4 cm left retromandibular lymph node. IMPRESSION: Loss of normal cervical lordosis which may be due to positioning or muscle spasm. There is, otherwise, no CT evidence of acute cervical spinal abnormality. Note is made of prominent left retromandibular lymph node. [facility], [place] NAME: HÉCTOR GUERRERO [facility] REC#: [id number] PT STATUS: REG ER : 1990 PHYSICIAN: TIM CHAVEZ DO ADMIT DATE: 08/27/20/ER Signed Date of Exam:08/27/20 CHEST 1 VIEW, AP/PA ONLY Indication: Fall with loss of consciousness Single AP view of the chest is obtained. COMPARISON: No previous study is available for comparison at this time. FINDINGS: Heart size and pulmonary vasculature are within normal limits, and the lungs are clear, bilaterally. IMPRESSION: Unremarkable chest. Dictated by: Dictated on workstation # [id number] Dict: 08/27/201858 Trans: 08/27/201915 [id number] Interpreted by: MONISHA JENSEN MD Electronically signed by: MONISHA JENSEN MD 08/27/201915 Departure Impression Primary Impression: Syncope Qualified Codes: R55 - Syncope and collapse Disposition: 01 HOME, SELF-CARE Condition: Stable Departure-Patient Inst. Referrals: NO,LOCAL PHYSICIAN (PCP/Family) Primary Care Physician Patient Instructions: Closed Head Injury (DC), Syncope (Fainting) (DC) Add. Discharge Instructions: Follow-up with your primary care provider and neurologist for further evaluation and recheck of today symptoms TIM CHAVEZ DO Aug 27, 2020 18:25
[2020-08-27 18:40] LABS: BASOPHILS % (AUTO) 0 % (0-10); EOSINOPHILS # (AUTO) 0.1 10^3/uL (0.0-0.3); EOSINOPHILS % (AUTO) 1 % (0-10); HEMATOCRIT 38 % (35-52); HEMOGLOBIN 11.7 g/dL (11.5-16.0); LYMPHOCYTES # (AUTO) 2.3 10^3/uL (1.0-4.0); LYMPHOCYTES % (AUTO) 25 % (12-44); MEAN CORPUSCULAR HEMOGLOBIN 25 pg (25-34); MEAN CORPUSCULAR HGB CONC 31 g/dL (32-36); MEAN CORPUSCULAR VOLUME 80 fL (80-99); MONOCYTES # (AUTO) 0.1 10^3/uL (0.0-1.0); MONOCYTES % (AUTO) 1 % (0-12); NEUTROPHILS # (AUTO) 6.4 10^3/uL (1.8-7.8); NEUTROPHILS % (AUTO) 71 % (42-75); PLATELET COUNT 193 10^3/uL (130-400); WHITE BLOOD COUNT 9.1 10^3/uL (4.3-11.0)
[2020-08-27 18:48] LABS: ALBUMIN 4.3 GM/DL (3.2-4.5); CHLORIDE 105 MMOL/L (98-107); POTASSIUM 3.7 MMOL/L (3.6-5.0); SODIUM 138 MMOL/L (135-145)
[2020-08-27 18:49] LABS: CALCIUM 8.9 MG/DL (8.5-10.1)
[2020-08-27 18:50] LABS: GLUCOSE 96 MG/DL (70-105)
[2020-08-27 18:51] LABS: TOTAL PROTEIN 7.4 GM/DL (6.4-8.2)
[2020-08-27 18:52] LABS: BILIRUBIN,TOTAL 0.3 MG/DL (0.1-1.0); CARBON DIOXIDE 23 MMOL/L (21-32)
[2020-08-27 18:54] LABS: ALKALINE PHOSPHATASE 79 U/L (40-136); CREATININE SERUM 0.62 MG/DL (0.60-1.30); GFR ESTIMATED > 60
[2020-08-27 18:55] LABS: BUN/CREATININE RATIO 21
[2020-08-27 18:57] LABS: ALANINE AMINOTRANSFERASE 27 U/L (0-55)
[2020-08-27 19:03] LABS: BILIRUBIN,URINE NEGATIVE (NEGATIVE); CLARITY,URINE SL CLOUDY; COLOR,URINE YELLOW; GLUCOSE, URINE (UA) NEGATIVE (NEGATIVE); KETONES,URINE NEGATIVE (NEGATIVE); LEUKOCYTE ESTERASE ,URINE NEGATIVE (NEGATIVE); NITRITE,URINE NEGATIVE (NEGATIVE); PH,URINE 6.5 (5-9); PROTEIN,URINE 3+ (NEGATIVE)
--- NOTE | 2020-08-27 19:06 | Diagnostic Imaging Report ---
PROCEDURE: CT head and CT cervical spine without contrast. TECHNIQUE: Multiple contiguous axial images were obtained through the brain and cervical spine without the use of intravenous contrast. Sagittal and coronal reformations through the cervical spine were then performed. Auto Exposure Controls were utilized during the CT exam to meet ALARA standards for radiation dose reduction. INDICATION: Fall with head injury and neck pain CT HEAD: CT images of the head were obtained. FINDINGS: Ventricles and sulci are within normal limits for size. There is no intracranial hemorrhage identified. There is no abnormal mass effect or shift of midline structures. There is a mucous retention cyst or polyp present within the right maxillary sinus. IMPRESSION: No CT evidence of acute intracranial abnormality. If there is continued concern for intracranial abnormality, consideration could be given to MRI followup for assessment. CT CERVICAL SPINE: Multiple contiguous axial CT images of the cervical spine were obtained with sagittal and coronal reformatted images produced. FINDINGS: There is loss of normal cervical lordosis. Vertebral body heights and disc spaces are maintained. Prevertebral soft tissues are unremarkable, and there is no evidence of paraspinous hematoma. There is a 1.4 cm left retromandibular lymph node. IMPRESSION: Loss of normal cervical lordosis which may be due to positioning or muscle spasm. There is, otherwise, no CT evidence of acute cervical spinal abnormality. Note is made of prominent left retromandibular lymph node. Dictated by: Dictated on workstation # [id number]
[2020-08-27 19:10] LABS: BACTERIA,URINE TRACE /HPF; RBC,URINE RARE /HPF; WBC,URINE 0-2 /HPF
[2020-08-27 19:11] LABS: AMORPHOUS SEDIMENT,UR FEW AMOR URATES /LPF
--- NOTE | 2020-08-27 19:17 | Diagnostic Imaging Report ---
Indication: Fall with loss of consciousness Single AP view of the chest is obtained. COMPARISON: No previous study is available for comparison at this time. FINDINGS: Heart size and pulmonary vasculature are within normal limits, and the lungs are clear, bilaterally. IMPRESSION: Unremarkable chest. Dictated by: Dictated on workstation # [id number]
[2020-08-27 19:35] VITALS: BP 113/86
== END 2020-08-27 19:37 | disposition home or self-care (01) ==
LOC: EDUNIT# 18:12 → ER 18:14
DX: R55 Syncope and collapse (principal); M54.2 Cervicalgia; Z79.52 Long term (current) use of systemic steroids; Z87.891 Personal history of nicotine dependence; W01.10XA Fall on same level from slipping, tripping and stumbling with subsequent striking against unspecified object, initial encounter
CPT/HCPCS: 36415; 70450; 71045; 72125; 80053; 81000; 84484; 85025; 93005

== ENCOUNTER → 2020-11-17 | Outpatient (CLI) | payer BC ==
[~2020-11-17] MED LIST changes: +GADOBUTROL 10 MMOL/10 ML (GADAVIST) VIAL IV ONE
--- NOTE | 2020-11-17 11:31 | Diagnostic Imaging Report ---
PROCEDURE: MR imaging of the brain with and without contrast. TECHNIQUE: Multiplanar, multisequence MR imaging of the brain was performed with and without contrast. INDICATION: Multiple sclerosis. COMPARISON: MRI brain without and with IV contrast 03/13/2020. FINDINGS: Since the prior exam, there has been no change in the bilateral periventricular and subcortical T2 hyperintensities. No infratentorial lesions are identified. No abnormal intracranial enhancement. Stable benign retrocerebellar cyst. No restricted water diffusion or hemosiderin deposition. No evidence of intracranial hemorrhage. Normal morphology including the major midline structures, sella, posterior fossa and cerebellopontine angle. No hydrocephalus or extra-axial fluid collections. Normal intracranial flow voids. Mild mucosal thickening in the left ethmoid and frontal sinuses. The mastoids are clear. Normal bone marrow signal. IMPRESSION: 1. Stable supratentorial periventricular and subcortical T2 hyperintensities which would be compatible with a demyelinating process. No new abnormal intracranial signal. No active enhancement. 2. Mild mucosal thickening in the left ethmoid and frontal sinuses is new since the prior exam. Dictated by: Dictated on workstation # [id number]
--- NOTE | 2020-11-17 11:40 | Diagnostic Imaging Report ---
PROCEDURE: MR imaging cervical spine with and without contrast. TECHNIQUE: Multiplanar and multisequence MRI of the cervical spine was performed with and without contrast. INDICATION: Multiple sclerosis. COMPARISON: MRI cervical spine without and with IV contrast 03/13/2020. MRI brain without and with IV contrast also performed today. FINDINGS: Stable T2 hyperintensities in the left hemicord at the level of C1-C2. The previously seen abnormal signal in the left geovany is not reproduced on today's exams. No new abnormal signal in the cervical spinal cord. No abnormal enhancement. Normal alignment of the cervical spine. Vertebral body heights are preserved. No suspicious bone marrow signal or enhancement. Small disc protrusion at C5-C6 results in only mild spinal canal narrowing. No neural foraminal narrowing. The visualized paravertebral soft tissues are unremarkable. IMPRESSION: 1. Stable T2 hyperintensity in the cervical cord at the level of C1-C2. No new abnormal T2 hyperintensities. No abnormal cervical cord enhancement. 2. Mild spondylotic changes result in no high-grade neural impingement. Dictated by: Dictated on workstation # [id number]
== END ==
LOC: RAD 08:16
PROVIDERS: ATTEND Neurological Surgery
DX: M50.222 Other cervical disc displacement at C5-C6 level (principal); G35 Multiple sclerosis
CPT/HCPCS: 70553; 72156

== ENCOUNTER 2021-03-07 21:23 | Emergency (ER) | payer BC ==
[~2021-03-07 21:23] MED LIST changes: -GADOBUTROL 10 MMOL/10 ML (GADAVIST) VIAL IV ONE
--- NOTE | 2021-03-07 21:31 | ED Lower Extremity ---
General Stated Complaint: RIGHT ANKLE INJURY Source: patient Exam Limitations: no limitations History of Present Illness Date Seen by Provider: March 07, 2021 Time Seen by Provider: 21:30 Initial Comments This is a well-appearing 31-year-old female presents to the ER with complaints of persistent pain in her right ankle after rolling it 3 days ago. States that she has rolled his ankle multiple times, no history of fractures or severe injuries. She has been elevating her foot and taking ibuprofen which minimally improves the pain. Pain is worse with weight bearing. No numbness, tingling, loss of sensation. Allergies and Home Medications Allergies Coded Allergies: No Known Drug Allergies (Unverified , 01/17/20) Home Medications Acetaminophen 500 Mg Tablet, 1,000 MG PO Q8HR Prescribed by: WILIAN RASHEED on 06/12/19 1039 Cephalexin 500 Mg Capsule, 500 MG PO QID Prescribed by: BEL PRADHAN on 01/17/20 0223 Diclofenac Sodium 25 Mg Tablet.dr, 25 MG PO Q8H PRN for PAIN-BREAKTHROUGH Prescribed by: WENDY LAN on 12/19/19 0835 Gabapentin 300 Mg Capsule, 300 MG PO BID Prescribed by: BEL PRADHAN on 12/03/19 0057 Hyoscyamine Sulfate 0.125 Mg Tab.subl, 0.25 MG SL Q4H PRN for CRAMPS Prescribed by: BEL PRADHAN on 01/17/20 0223 Ibuprofen 600 Mg Tablet, 600 MG PO Q6HR Prescribed by: WILIAN RASHEED on 06/12/19 1039 Methocarbamol 750 Mg Tablet, 750 MG PO Q4H PRN for PAIN-MODERATE (5-7) Prescribed by: LIDA FAIR on 12/01/19 1153 Ondansetron 4 Mg Tab.rapdis, 4 MG PO Q6H PRN for NAUSEA/VOMITING-1ST LINE Prescribed by: WENDY LAN on 12/19/19 0835 Oxycodone HCl/Acetaminophen 1 Each Tablet, 1 TAB PO Q4H PRN for PAIN- BREAKTHROUGH Prescribed by: BEL PRADHAN on 12/11/19 0126 Oxycodone HCl/Acetaminophen 1 Each Tablet, 1 TAB PO Q4H PRN for PAIN- BREAKTHROUGH Prescribed by: WENDY LAN on 12/19/19 0835 Prednisone 20 Mg Tab, 40 MG PO DAILY Prescribed by: LIDA FAIR on 12/01/19 1153 Prednisone 20 Mg Tab, 40 MG PO DAILY Prescribed by: BEL PRADHAN on 12/11/19 0126 Vit No.124/Iron/FA 1 Each Tablet, 1 EACH PO DAILY, (Reported) Tramadol HCl 50 Mg Tablet, 50 MG PO Q6H PRN for PAIN-BREAKTHROUGH Prescribed by: BEL PRADHAN on 12/03/19 0057 Patient Home Medication List Home Medication List Reviewed: Yes Review of Systems Constitutional: no symptoms reported EENTM: no symptoms reported Respiratory: no symptoms reported Cardiovascular: no symptoms reported Gastrointestinal: no symptoms reported Genitourinary: no symptoms reported Musculoskeletal: see HPI Skin: no symptoms reported Psychiatric/Neurological: No Symptoms Reported Past Cqyyqon-Oxazmc-Eovath Hx Patient Social History Type Used: Cigarettes Former Smoker, Quit: Dec 01, 2009 2nd Hand Smoke Exposure: No Recent Hopitalizations: No Immunizations Up To Date Tetanus Booster (TDap): Unknown PED Vaccines UTD: Yes Seasonal Allergies Seasonal Allergies: No Past Medical History Surgeries: Yes Appendectomy, Tubal Ligation Respiratory: No Cardiac: No Neurological: Yes Multiple Sclerosis 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 Disorders: No 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 0.6oz. 117.215819mx; 41.00 BMI Method:Stated General Appearance: WD/WN, no apparent distress HEENT: normal ENT inspection, pharynx normal Neck: full range of motion, normal inspection Cardiovascular: regular rate, rhythm, no murmur Respiratory: lungs clear, normal breath sounds Back: normal inspection Ankles: left ankle non-tender, left ankle normal inspection, left ankle normal range of motion; right ankle pain, right ankle soft tissue tenderness Feet: bilateral foot normal inspection, bilateral foot normal range of motion Neurologic/Tendon: normal sensation, normal motor functions, normal tendon functions Neurologic/Psychiatric: no motor/sensory deficits, alert, normal mood/affect, oriented x 3 Skin: normal color, warm/dry Progress/Results/Core Measures Results/Orders My Orders Orders - KARYNA PATTERSON APRN Ankle, Right, 3 Views (03/07/21 21:34) Progress Progress Note : Progress Note Patient examined and in no acute distress. Orders placed for x-ray of the ankle. No acute findings noted on ankle x-ray. Pain is well managed at this time. Applied Serge wrapped. Discussed conservative approach and to follow-up with her primary care provider if her symptoms persist. Reviewed discharge plan of care and she is agreeable with plan. No questions or concerns at time of discharge. Diagnostic Imaging Diagonstic Imaging: Xray Plain Films/CT/US/NM/MRI: ankle Comments NAME: HÉCTOR GUERRERO [facility] REC#: [id number] PT STATUS: REG ER : 1990 PHYSICIAN: KARYNA PATTERSON APRN ADMIT DATE: 03/07/21/ER Draft Date of Exam:03/07/21 ANKLE, RIGHT, 3 VIEWS INDICATION: Rolled ankle, medial ankle pain. COMPARISON: None. EXAMINATION: Three views of the right ankle were obtained. FINDINGS: There is no acute fracture or dislocation. No focal osseous lesion is seen. The surrounding soft tissue structures are unremarkable. There are no radiopaque foreign body. IMPRESSION: No acute fracture or dislocation in the right ankle. Dictated on workstation # [id number] Dict: 03/07/212149 Trans: 03/07/212150 [facility] [id number] Interpreted by: JASIEL GOMEZ MD Electronically signed by: Reviewed: Reviewed by Me Departure Impression Primary Impression: Right ankle sprain Disposition: HOME, SELF-CARE Condition: Stable Departure-Patient Inst. Decision time for Depature: 21:55 Referrals: NO,LOCAL PHYSICIAN (PCP/Family) Primary Care Physician Patient Instructions: Ankle Sprain Add. Discharge Instructions: Plan: 1. Discharge home. 2. Follow up with your doctor if symptoms persist. May take Tylenol or Ibuprofen as needed for pain per package. 3. Keep affected site elevated above your heart over the next 72 hours to reduce swelling and pain. 4. Apply ice 20 minutes at a time 4-6x per day. 5. Return to ER for any new, worsening, or concerning symptoms. [facility] PAT[facility]SON [facility] March 07, 2021 21:31
--- NOTE | 2021-03-07 21:51 | Diagnostic Imaging Report ---
INDICATION: Rolled ankle, medial ankle pain. COMPARISON: None. EXAMINATION: Three views of the right ankle were obtained. FINDINGS: There is no acute fracture or dislocation. No focal osseous lesion is seen. The surrounding soft tissue structures are unremarkable. There are no radiopaque foreign body. IMPRESSION: No acute fracture or dislocation in the right ankle. Dictated by: Dictated on workstation # [id number]
== END 2021-03-07 22:09 | disposition home or self-care (01) ==
LOC: EDUNIT# 21:23 → ER 21:27
DX: S93.401A Sprain of unspecified ligament of right ankle, initial encounter (principal); Z87.891 Personal history of nicotine dependence; Z79.52 Long term (current) use of systemic steroids; X50.1XXA Overexertion from prolonged static or awkward postures, initial encounter
CPT/HCPCS: 73610

== ENCOUNTER → 2021-09-23 | Outpatient (CLI) | payer BC ==
[~2021-09-23] MED LIST changes: -DICL25TA PO; +DICL25TA9 PO
--- NOTE | 2021-09-23 11:47 | Diagnostic Imaging Report ---
PROCEDURE: Pelvic comp/transvaginal sonogram. TECHNIQUE: Complete transabdominal and transvaginal pelvic ultrasound was performed. In addition, limited pelvic Doppler was performed. INDICATION: Menorrhagia. Uterus is retroverted measuring 8.4 x 4.4 x 6.3 cm. Endometrium is 5 mm in thickness. No myometrial mass is detected. Right ovary measures 4.3 x 2.0 x 3.1 cm and the left ovary measures 4.5 x 2.3 x 2.4 cm. Both ovaries contain small follicles. There is blood flow to both ovaries. No adnexal mass or free fluid is detected. IMPRESSION: Unremarkable transabdominal and transvaginal pelvic ultrasound. Dictated by: Dictated on workstation # [id number]
== END ==
LOC: RAD 10:00
PROVIDERS: ATTEND Obstetrics & Gynecology
DX: N92.0 Excessive and frequent menstruation with regular cycle (principal)
CPT/HCPCS: 76830; 76856

== ENCOUNTER 2022-10-18 18:05 | Emergency (ER) | payer BC ==
[~2022-10-18] VITALS: Ht 162.5 cm; Wt 108.8 kg
[2022-10-18] MEDS ORDERED: BENZONATATE 100 MG (TESSALON) CAPSULE PO ONE (18:30)
--- NOTE | 2022-10-18 18:34 | ED General ---
General Chief Complaint: Cough/Cold/Flu Symptoms Stated Complaint: COUGHING UP BLOOD Nursing Triage Note: PT AMB TO RM 6 WITH COMPLAINT OF COUGHING UP BLOOD. STATES HAS HAD A COUGH FOR TWO WEEKS AND IT HAS GOTTEN WORSE. HAS BEEN DOING OTC REMEDIES Source of Information: Patient Exam Limitations: No Limitations History of Present Illness Date Seen by Provider: Oct 18, 2022 Time Seen by Provider: 18:14 Initial Comments This 32-year-old woman presents to the emergency room with complaints of persistent cough for 3 weeks after having an acute flulike syndrome. She continues to have nagging persistent cough and coughed so hard that she vomited yesterday. Today she coughed up approximately a teaspoon of bright red blood. She has had a single episode. She has dyspnea with exertion but no chest pain. She is afebrile. She does not smoke. She has no history of asthma or COPD. She is not anticoagulated. She has no history of pulmonary embolus. She denies as she has had a tubal ligation and has a Nuvaring. She is on Aubagio for MS. [facility] is her primary care clinic. Allergies and Home Medications Allergies Coded Allergies: No Known Drug Allergies (Unverified , 01/17/20) Patient Home Medication List Home Medication List Reviewed: Yes Acetaminophen (Acetaminophen) 500 Mg Tablet, 1,000 MG PO Q8HR Prescribed by: WILIAN RASHEED on 06/12/19 1039 Benzonatate (Benzonatate) 200 Mg Capsule, 200 MG PO TID PRN for COUGH Prescribed by: BEL PRADHAN on 10/18/222026 Cephalexin (Keflex) 500 Mg Capsule, 500 MG PO QID Prescribed by: BEL PRADHAN on 01/17/20222 Diclofenac Sodium (Diclofenac Sodium) 25 Mg Tablet.dr, 25 MG PO Q8H PRN for PAIN-BREAKTHROUGH Prescribed by: WENDY LAN on 12/19/19 0835 Gabapentin (Gabapentin) 300 Mg Capsule, 300 MG PO BID Prescribed by: BEL PRADHAN on 12/03/19 005 Hyoscyamine Sulfate (Levsin-Sl) 0.125 Mg Tab.subl, 0.25 MG SL Q4H PRN for CRAMPS Prescribed by: BEL PRADHAN on 01/17/20 0223 Ibuprofen (Ibu) 600 Mg Tablet, 600 MG PO Q6HR Prescribed by: WILIAN RASHEED on 06/12/19 1039 Methocarbamol (Robaxin-750) 750 Mg Tablet, 750 MG PO Q4H PRN for PAIN-MODERATE (5-7) Prescribed by: LIDA FAIR on 12/01/19 115 Ondansetron (Ondansetron Odt) 4 Mg Tab.rapdis, 4 MG PO Q6H PRN for NAUSEA/VOMITING-1ST LINE Prescribed by: WENDY LAN on 12/19/19 0835 Oxycodone HCl/Acetaminophen (Percocet 5-325 mg Tablet) 1 Each Tablet, 1 TAB PO Q4H PRN for PAIN-BREAKTHROUGH Prescribed by: BEL PRADHAN on 12/11/19 012 Oxycodone HCl/Acetaminophen (Percocet 5-325 mg Tablet) 1 Each Tablet, 1 TAB PO Q4H PRN for PAIN-BREAKTHROUGH Prescribed by: WENDY LAN on 12/19/19 0835 Prednisone (Prednisone) 20 Mg Tab, 40 MG PO DAILY Prescribed by: LIDA FAIR on 12/01/19 115 Prednisone (Prednisone) 20 Mg Tab, 40 MG PO DAILY Prescribed by: BEL PRADHAN on 12/11/19 012 Prednisone (Prednisone) 20 Mg Tab, 40 MG PO DAILY Prescribed by: BEL PRADHAN on 10/18/222026 Vit No.124/Iron/FA ( Vitamin Tablet) 1 Each Tablet, 1 EACH PO DAILY, (Reported) Entered as Reported by: MAR BORJA on 12/26/172034 Tramadol HCl (Ultram) 50 Mg Tablet, 50 MG PO Q6H PRN for PAIN-BREAKTHROUGH Prescribed by: BEL PRADHAN on 12/03/19 005 Review of Systems Review of Systems Constitutional: no symptoms reported EENTM: no symptoms reported Respiratory: see HPI Cardiovascular: no symptoms reported Gastrointestinal: see HPI Genitourinary: no symptoms reported : No Musculoskeletal: no symptoms reported Skin: no symptoms reported Psychiatric/Neurological: No Symptoms Reported Hematologic/Lymphatic: No Symptoms Reported Immunological/Allergic: no symptoms reported Past Lmpkogr-Pjaifk-Twtxat Hx Patient Social History Tobacco Use?: No Use of E-Cig and/or Vaping dev: No Substance use?: No Alcohol Use?: No Pt feels they are or have been: No Immunizations Up To Date Tetanus Booster (TDap): Unknown PED Vaccines UTD: Yes Seasonal Allergies Seasonal Allergies: No Past Medical History Surgeries: Yes Appendectomy, Tubal Ligation Respiratory: No Cardiac: No Neurological: Yes Multiple Sclerosis 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 Disorders: No [employer] History: Tubal Ligation Genitourinary: No Gastrointestinal: No Musculoskeletal: Yes (cervical radiculopathy) Endocrine: No HEENT: No Cancer: No Psychosocial: No Integumentary: No Blood Disorders: No Adverse Reaction/Blood Tranf: No Family Medical History Cardiovascular disease GRANDFATHER, MATERNAL Diabetes mellitus GRANDMOTHER, MATERNAL FH: Crohn's disease GRANDMOTHER, MATERNAL 19 MOTHER No Pertinent Family Hx Physical Exam Vital Signs Vital Signs - First Documented 10/18/22 18:15 Temp 36.7 Pulse 99 Resp 16 B/P (MAP) 145/101 (116) Pulse Ox 99 O2 Delivery Room Air Capillary Refill : Less Than 3 Seconds Height, Weight, BMI Height: 5'4.00" Weight: 260lbs. 0.6oz. 117.301073ib; 41.00 BMI Method:Stated General Appearance: WD/WN, Mild Distress, Obese HEENT: PERRL/EOMI, TMs Normal, Normal ENT Inspection, Pharynx Normal Neck: Normal Inspection; No JVD Respiratory: Lungs Clear, Normal Breath Sounds, No Accessory Muscle Use, No Respiratory Distress; No Crackles, No Wheezing; Other (Persistent dry cough. Forced expiration induces cough.) Cardiovascular: Regular Rate, Rhythm, No Edema, No Murmur Gastrointestinal: Non Tender, Soft Extremity: Normal Inspection, Non Tender, No Calf Tenderness, No Pedal Edema Neurologic/Psychiatric: Alert, Oriented x3, No Motor/Sensory Deficits, Normal Mood/Affect Skin: Normal Color, Warm/Dry Progress/Results/Core Measures Suspected Sepsis SIRS Temperature: Pulse: 99 Respiratory Rate: 16 Laboratory Tests 10/18/22 19:45: White Blood Count 9.9 Blood Pressure 145 /101 Mean: 116 Laboratory Tests 10/18/22 19:45: Creatinine 0.65, INR Comment 1.0, Platelet Count 213, Total Bilirubin 0.2 Results/Orders Lab Results Laboratory Tests Test 10/18/22 19:45 Range/Units White Blood Count 9.9 4.3-11.0 10^3/uL Red Blood Count 4.59 3.80-5.11 10^6/uL Hemoglobin 11.9 11.5-16.0 g/dL Hematocrit 37 35-52 % Mean Corpuscular Volume 81 80-99 fL Mean Corpuscular Hemoglobin 26 25-34 pg Mean Corpuscular Hemoglobin Concent 32 32-36 g/dL Red Cell Distribution Width 14.6 H 10.0-14.5 % Platelet Count 213 130-400 10^3/uL Mean Platelet Volume 12.5 H 9.0-12.2 fL Immature Granulocyte % (Auto) 0 % Neutrophils (%) (Auto) 65 42-75 % Lymphocytes (%) (Auto) 28 12-44 % Monocytes (%) (Auto) 5 0-12 % Eosinophils (%) (Auto) 1 0-10 % Basophils (%) (Auto) 1 0-10 % Neutrophils # (Auto) 6.4 1.8-7.8 10^3/uL Lymphocytes # (Auto) 2.8 1.0-4.0 10^3/uL Monocytes # (Auto) 0.5 0.0-1.0 10^3/uL Eosinophils # (Auto) 0.1 0.0-0.3 10^3/uL Basophils # (Auto) 0.1 0.0-0.1 10^3/uL Immature Granulocyte # (Auto) 0.0 0.0-0.1 10^3/uL Prothrombin Time 13.5 12.2-14.7 SEC INR Comment 1.0 0.8-1.4 Activated Partial Thromboplast Time 29 24-35 SEC D-Dimer <= 0.27 0.00-0.49 UG/ML Sodium Level 140 135-145 MMOL/L Potassium Level 3.4 L 3.6-5.0 MMOL/L Chloride Level 107 98-107 MMOL/L Carbon Dioxide Level 22 21-32 MMOL/L Anion Gap 11 5-14 MMOL/L Blood Urea Nitrogen 11 7-18 MG/DL Creatinine 0.65 0.60-1.30 MG/DL Estimat Glomerular Filtration Rate 120 BUN/Creatinine Ratio 17 Glucose Level 143 H 70-105 MG/DL Calcium Level 9.2 8.5-10.1 MG/DL Corrected Calcium 9.4 8.5-10.1 MG/DL Total Bilirubin 0.2 0.1-1.0 MG/DL Aspartate Amino Transf (AST/SGOT) 7 5-34 U/L Alanine Aminotransferase (ALT/SGPT) 16 0-55 U/L Alkaline Phosphatase 71 40-136 U/L C-Reactive Protein High Sensitivity 2.34 H 0.00-0.50 MG/DL Total Protein 7.1 6.4-8.2 GM/DL Albumin 3.8 3.2-4.5 GM/DL My Orders Orders - BEL MARQUEZ MD Chest Pa/Lat (2 View) (10/18/22 18:24) Benzonatate Capsule (Tessalon Perles) (10/18/22 18:30) Albuterol Inhaler (Albuterol) (10/18/22 18:35) Basic Metabolic Panel (10/18/22 19:02) Comprehensive Metabolic Panel (10/18/22 19:02) Hs C Reactive Protein (10/18/22 19:02) Fibrin Degradation Products (10/18/22 19:02) Protime With Inr (10/18/22 19:02) Partial Thromboplastin Time (10/18/22 19:02) Ed Iv/Invasive Line Start (10/18/22 19:02) Cbc With Automated Diff (10/18/22 19:57) Medications Given in ED Vital Signs/I&O 10/18/22 10/18/22 18:15 20:48 Temp 36.7 Pulse 99 91 Resp 16 20 B/P (MAP) 145/101 (116) 145/101 Pulse Ox 99 98 O2 Delivery Room Air Room Air Capillary Refill : Less Than 3 Seconds Blood Pressure Mean: 116 Progress Note #1: Time: 18:34 Progress Note Patient is receiving Tessalon Perles and an albuterol inhaler. Chest x-ray is pending. Further work-up and treatment will be pending her response to these interventions and x-ray results. Progress Note #2: Time: 19:03 Progress Note Patient does feel better after albuterol treatment. Chest x-ray was unremarkable. Unfortunately, I cannot clear her from PE possibility with PERC criteria. I therefore discussed risks and benefits of doing further screening including basic blood work and a D-dimer test. She is aware that if D-dimer is positive we will pursue further evaluation with a CT scan. She is agreeable to further work-up at this time. Progress Note #3: Time: 16:43 Progress Note Additional work-up was negative. Patient was prescribed prednisone, Tesslon Pearls, and a dispensed inhaler. See discharge instructions for further discussion. Diagnostic Imaging Diagonstic Imaging: Xray Plain Films/CT/US/NM/MRI: chest Comments 2 view chest x-ray viewed by me and report reviewed. See report below: NAME: HÉCTOR GUERRERO [facility] REC#: [id number] PT STATUS: REG ER : 1990 PHYSICIAN: BEL MARQUEZ MD ADMIT DATE: 10/18/22/ER Draft Date of Exam:10/18/22 CHEST PA/LAT (2 VIEW) PATIENT HISTORY: Cough, Hemoptysis. TECHNIQUE: Two views of the chest. COMPARISON: 08/27/2020 FINDINGS: The lung volumes are normal. No focal consolidation is seen. No large pleural effusion or pneumothorax is seen. The cardiomediastinal silhouette is normal in size and contour. No acute osseous abnormality is seen. IMPRESSION: No acute pulmonary abnormality seen. Dictated on workstation # [id number] Dict: 10/18/22 1844 Trans: 10/18/22 [id number] Interpreted by: THERESA SMITH MD Departure Impression Primary Impression: Acute bronchitis Qualified Codes: J20.9 - Acute bronchitis, unspecified Additional Impression: Hemoptysis Disposition: 01 HOME, SELF-CARE Condition: Improved Departure-Patient Inst. Decision time for Depature: 20:22 Referrals: NO,LOCAL PHYSICIAN (PCP/Family) Primary Care Physician Patient Instructions: Acute Bronchitis, How to Use a Metered Dose Inhaler ED Add. Discharge Instructions: Drink plenty of clear liquids to stay well-hydrated. You may take Tylenol (acetaminophen) up to 1000 mg every 6 hours as needed for pain. Avoid NSAID medications such as aspirin, ibuprofen, naproxen, etc. as they may increase bleeding risk. Use Tessalon Perles (benzonatate) as prescribed for cough suppression. You may additionally use dextromethorphan products [id number]. Start your prednisone steroids in the morning. Take prednisone with food or milk to avoid upset stomach and take early in the day to avoid sleep disturbance. Use the inhaler up to 4 puffs in a 4-hour period of time as needed for shortness of breath, persistent cough, or wheezing. If you require more than 4 puffs in a 4-hour period of time, return to care. Shake well before using. See in structions attached. If symptoms do not improve considerably after the 4 days of steroids, follow-up with your primary care provider. You may need a longer course of therapy such as inhaled steroids. Return to care if you have worsening symptoms despite following these instructions. All discharge instructions reviewed with patient and/or family. Voiced understanding. Scripts Prednisone (Prednisone) 20 Mg Tab 40 MG PO DAILY, #8 TAB 0 Refills Prov: BEL MARQUEZ MD 10/18/22 Benzonatate (Benzonatate) 200 Mg Capsule 200 MG PO TID PRN for COUGH, #20 CAP Prov: BEL MARQUEZ MD 10/18/22 Copy Copies To 1: [facility] [place] BEL MARQUEZ MD Oct 18, 2022 18:34
[2022-10-18] MEDS ORDERED: RT-ALBUTEROL HFA 8.5 GM INHALER IH STA (18:35)
--- NOTE | 2022-10-18 18:47 | Diagnostic Imaging Report ---
PATIENT HISTORY: Cough, Hemoptysis. TECHNIQUE: Two views of the chest. COMPARISON: 08/27/2020 FINDINGS: The lung volumes are normal. No focal consolidation is seen. No large pleural effusion or pneumothorax is seen. The cardiomediastinal silhouette is normal in size and contour. No acute osseous abnormality is seen. IMPRESSION: No acute pulmonary abnormality seen. Dictated by: Dictated on workstation # [id number]
[2022-10-18 20:00] LABS: ALBUMIN 3.8 GM/DL (3.2-4.5); POTASSIUM 3.4 MMOL/L (3.6-5.0)
[2022-10-18 20:01] LABS: CALCIUM 9.2 MG/DL (8.5-10.1)
[2022-10-18 20:03] LABS: BASOPHILS # (AUTO) 0.1 10^3/uL (0.0-0.1); BASOPHILS % (AUTO) 1 % (0-10); EOSINOPHILS # (AUTO) 0.1 10^3/uL (0.0-0.3); EOSINOPHILS % (AUTO) 1 % (0-10); HEMATOCRIT 37 % (35-52); HEMOGLOBIN 11.9 g/dL (11.5-16.0); LYMPHOCYTES # (AUTO) 2.8 10^3/uL (1.0-4.0); LYMPHOCYTES % (AUTO) 28 % (12-44); MEAN CORPUSCULAR HEMOGLOBIN 26 pg (25-34); MEAN CORPUSCULAR HGB CONC 32 g/dL (32-36); MEAN CORPUSCULAR VOLUME 81 fL (80-99); MEAN PLATELET VOLUME 12.5 fL (9.0-12.2); MONOCYTES # (AUTO) 0.5 10^3/uL (0.0-1.0); MONOCYTES % (AUTO) 5 % (0-12); NEUTROPHILS # (AUTO) 6.4 10^3/uL (1.8-7.8); NEUTROPHILS % (AUTO) 65 % (42-75); PLATELET COUNT 213 10^3/uL (130-400); TOTAL PROTEIN 7.1 GM/DL (6.4-8.2); WHITE BLOOD COUNT 9.9 10^3/uL (4.3-11.0)
[2022-10-18 20:05] LABS: BILIRUBIN,TOTAL 0.2 MG/DL (0.1-1.0)
[2022-10-18 20:07] LABS: CREATININE SERUM 0.65 MG/DL (0.60-1.30)
[2022-10-18 20:09] LABS: FIBRIN DEGRADATION PRODUCTS <= 0.27 UG/ML (0.00-0.49); PARTIAL THROMBOPLASTIN TIME 29 SEC (24-35); PROTHROMBIN TIME PATIENT 13.5 SEC (12.2-14.7)
[2022-10-18] MEDS ORDERED: PRD20T PO (20:27)
[2022-10-18] MEDS ORDERED: BENZ200C51 PO (20:27)
[2022-10-18 20:48] VITALS: BP 145/101
[2022-10-18] MEDS ORDERED: RT-ALBUTEROL HFA 8.5 GM INHALER IH ONE (22:00)
== END 2022-10-18 20:55 | disposition home or self-care (01) ==
LOC: EDUNIT# 18:05 → ER 18:07
DX: J20.9 Acute bronchitis, unspecified (principal); R04.2 Hemoptysis
CPT/HCPCS: 36415; 71046; 80053; 85025; 85379; 85610; 85730; 86141

== ENCOUNTER → 2023-10-10 | Outpatient (CLI) | payer BC ==
[~2023-10-10] MED LIST changes: +BENZ200C51 PO
--- NOTE | 2023-10-10 16:05 | Diagnostic Imaging Report ---
PROCEDURE: Pelvic comp/transvaginal sonogram. TECHNIQUE: Complete transabdominal and transvaginal pelvic ultrasound was performed. In addition, limited pelvic Doppler was performed. INDICATION: Abnormal uterine bleeding. FINDINGS: The uterus is anteverted measuring 9.9 x 4.7 x 5.1 cm. The endometrium is 6 mm in thickness. No myometrial mass is detected. The right ovary measures 3.6 x 1.6 x 2.4 cm and the left ovary measures 3.7 x 1.8 x 2.3 cm. Both ovaries demonstrate blood flow. No adnexal mass or free fluid is detected. IMPRESSION: Unremarkable transabdominal and transvaginal pelvic ultrasound with limited pelvic Doppler. Dictated by: Dictated on workstation # [id number]
== END ==
LOC: RAD 14:04
PROVIDERS: ATTEND Obstetrics & Gynecology
DX: N93.9 Abnormal uterine and vaginal bleeding, unspecified (principal)
CPT/HCPCS: 76830; 76856